=== PATIENT | male | born 1940 | race Caucasian/White ===

== ENCOUNTER → 2017-12-28 08:46 | Outpatient (CLI) | payer MEDICARE, OTHER, SELFPAY ==
[2017-11-18 13:05] VITALS: BP 132/68; BMI 29.4
[2017-12-28 10:38] LABS: Absolute Neutrophil Count 3.9 X10^3/uL (2.0-7.7); Basophil# 0.05 X10^3/uL; Basophil% 0.8 % (0-1); Eosinophil# 0.26 X10^3/uL; Eosinophils% 4.1 % (0-5); Hematocrit 38.2 % (40-54); Hemoglobin 12.5 g/dl (13.0-16.5); Lymphocyte % 22.3 % (19-41); Mean Corp Hgb Conc 32.7 g/gl (32-36); Mean Corpuscular Hgb 29.2 pg (27.0-32.0); Mean Corpuscular Volume 89.3 fL (80-94); Monocyte# 0.64 X10^3/uL; Monocyte% 10.2 % (0-10); Neutrophil # 3.91 X10^3/uL (2.7-7.7); Neutrophil % 62.4 % (47-70); Platelet Count 221 K/mm3 (150-450); RBC Distribution Width SD 45.6 fl (35.1-43.9); Red Blood Count 4.28 M/mm3 (4.6-6.2); White Blood Count 6.3 K/mm3 (4.4-11.0)
[2017-12-28 10:39] LABS: POSITIVE COUNT NO; POSITIVE DIFFERENTIAL NO; POSITIVE MORPHOLOGY NO
[2017-12-28 11:10] LABS: ALB/GLOB Ratio 1.2 RATIO (0.9-2.4); AST(SGOT) 17 U/L (15-37); Alanine Aminotransfer ALT/SGPT 20 U/L (16-61); Albumin, Serum 3.8 g/dL (3.2-5.0); Alkaline Phosphatase 62 U/L (45-117); Anion Gap 7 (5-15); BUN 21 mg/dL (7-18); BUN/Creat Ratio 22.5 RATIO (10-20); Calcium,Total 9.5 mg/dL (8.5-10.1); Chloride 106 mmol/L (98-107); Cholesterol 237 mg/dL (200); Creatinine, Serum 0.93 mg/dL (0.70-1.30); EST Glomerular Filtration Rate 83 mL/min (>60); Est Glom Filt Rate - Afr Amer 100 mL/min (>60); Globulin 3.3 g/dL (2.2-4.2); Glucose 94 mg/dL (74-106); High Density Lipoprotein 48 mg/dL; Potassium 4.1 mmol/L (3.5-5.1); Protein, Total 7.1 g/dL (6.4-8.2); Sodium Level 139 mmol/L (136-145); Thyroid Stim Hormone (TSH) 1.58 uIU/mL (0.358-3.74); Triglycerides 152 mg/dL; Very Low Density Lipoprotein 30 mg/dL (5-40)
== END ==
PROVIDERS: Family Provider Family Medicine; PCP Family Medicine; Visit Provider Family Medicine
DX: E78.5 Hyperlipidemia, unspecified (principal); I10 Essential (primary) hypertension; E03.9 Hypothyroidism, unspecified; R60.0 Localized edema; E29.1 Testicular hypofunction; Z51.81 Encounter for therapeutic drug level monitoring; Z79.899 Other long term (current) drug therapy
CPT/HCPCS: 36415; 80053; 80061; 84443; 85025

== ENCOUNTER → 2018-01-03 09:09 | Outpatient (CLI) | payer MEDICARE, OTHER, SELFPAY ==
--- NOTE | 2018-01-03 09:14 | US_ITS ---
STUDY: RENAL ULTRASOUND - COMPLETE REASON FOR EXAM: Male, 77 years old. History of right renal cyst. TECHNIQUE: Ultrasound evaluation of the kidneys was performed with real-time and static guzman-scale imaging. COMPARISON: Comparison is made with prior examination dated December 31, 2016. FINDINGS: RIGHT KIDNEY: Normal location of the right kidney, which is normal in size. The right kidney measures 14.1 cm x 5.5 cm x 5.3 cm. There is a normal cortex of the right kidney. The renal cortex measures 1.8 cm. Once again, there is a septated 9.2 cm x 9.3 cm x 7.7 cm cyst in the inferior midportion of the kidney. There are no right renal calculi. There is no right hydronephrosis. DISTAL RIGHT URETER: There is non-visualization of the distal right ureter. There is no demonstrated right ureterovesical junction calculus. There is no demonstrated right ureteral jet. LEFT KIDNEY: Normal location of the left kidney, which is normal in size. The left kidney measures 11.1 cm x 4.8 cm x 6.0 cm. There is a normal cortex of the left kidney. The renal cortex measures 1.6 cm. There is a 9 mm x 6 mm x 8 mm cyst. Stable appearance of the 5 mm calculus. There is no left hydronephrosis. DISTAL LEFT URETER: There is non-visualization of the distal left ureter. There is no demonstrated left ureterovesical junction calculus. There is a visualized left ureteral jet. BLADDER: The distended urinary bladder has a volume of 43 ml. There is a normal wall thickness of the distended urinary bladder. There is no demonstrated mass within the urinary bladder. There are no demonstrated bladder calculi. US/Kidney and Bladder IMPRESSION: Stable examination. Electronically Signed: Mario Garvin MD at 14:57 EST Tel [phone], Service support ,
--- NOTE | 2018-01-03 09:14 | US_ITS ---
PROCEDURES: ULTRASOUND AORTA REASON FOR EXAM: Male, 77 years old. History of abdominal aortic aneurysm. TECHNIQUE: Ultrasound evaluation of the aorta was performed with real-time and static obregon-scale imaging. COMPARISON: Comparison is made with prior study dated June 23, 2013. FINDINGS: There is atherosclerotic plaque formation of the abdominal aorta. Aorta measures: Proximal 3.5 cm. Middle 1.7 cm. Distal 2.0 cm. Aorta measure transversely: Proximal 3.3 cm. Middle 1.7 cm. Distal 3.8 cm. Right iliac artery measures: 0.8 cm. Right iliac artery measure transversely: 0.9 cm. Left iliac artery measures: 0.9 cm. Left iliac artery measure transversely: 1.2 cm. Saccular infrarenal abdominal aortic aneurysm with a transverse dimension of 3.8 cm in AP dimension of 3.1 cm.. US/Aorta IMPRESSION: The transverse dimension of the saccular aneurysm as increased in size as compared to prior examination. Electronically Signed: Mario Garvin MD at 10:48 EST Tel [phone], Service support ,
== END ==
PROVIDERS: Family Provider Family Medicine; PCP Family Medicine; Visit Provider Family Medicine
DX: I71.4 Abdominal aortic aneurysm, without rupture (principal); N28.1 Cyst of kidney, acquired
CPT/HCPCS: 76770; 76775

== ENCOUNTER → 2018-05-02 13:19 | Outpatient (CLI) | payer MEDICARE, OTHER, SELFPAY ==
--- NOTE | 2018-05-02 13:19 | DT_ITS ---
This patient was seen during an EMR downtime April 25, 2018 - May 02, 2018. This patient may have a combination of paper and electronic documentation or all paper documentation. All documentation is viewable within the e-chart portion of [facility] for each patient visit.
[2018-05-09 20:09] LABS: Alternaria tenuis <0.10 kU/L (Class 0); Ash, White 1.37 kU/L (Class II); Aspergillus fumigatus <0.10 kU/L (Class 0); Bermuda Grass <0.10 kU/L (Class 0); Birch <0.10 kU/L (Class 0); Black Walnut <0.10 kU/L (Class 0); Cat Hair / Dander,Stand <0.10 kU/L (Class 0); Cedar, Mountain <0.10 kU/L (Class 0); Cladosporium herbarum <0.10 kU/L (Class 0); Cockroach, American <0.10 kU/L (Class 0); Cottonwood <0.10 kU/L (Class 0); D farinae Mite <0.10 kU/L (Class 0); D pteronyssinus <0.10 kU/L (Class 0); Dog Epithelia <0.10 kU/L (Class 0); Elm, American White <0.10 kU/L (Class 0); Immunoglobulin E 266 IU/mL (0-100); Maple/Box Elder <0.10 kU/L (Class 0); Mouse Urine <0.10 kU/L (Class 0); Mulberry, White <0.10 kU/L (Class 0); Oak, White <0.10 kU/L (Class 0); Pecan <0.10 kU/L (Class 0); Penicillium Notatum <0.10 kU/L (Class 0); Pigweed, Rough <0.10 kU/L (Class 0); Ragweed, Short/Common 0.31 kU/L (Class 0/I); Russian Thistle <0.10 kU/L (Class 0); Sheep Sorrel <0.10 kU/L (Class 0); Sycamore, American <0.10 kU/L (Class 0); Timothy Grass <0.10 kU/L (Class 0)
== END ==
PROVIDERS: Family Provider Family Medicine; PCP Family Medicine; Visit Provider Family Medicine
DX: L50.0 Allergic urticaria (principal)
CPT/HCPCS: 36415; 82785; 86003

== ENCOUNTER → 2018-06-06 08:56 | Outpatient (CLI) | payer MEDICARE, OTHER, SELFPAY ==
[2018-06-06 10:26] LABS: ALB/GLOB Ratio 0.9 RATIO (0.9-2.4); AST(SGOT) 16 U/L (15-37); Alanine Aminotransfer ALT/SGPT 19 U/L (16-61); Albumin, Serum 3.7 g/dL (3.2-5.0); Alkaline Phosphatase 65 U/L (45-117); Anion Gap 9 (5-15); BUN 23 mg/dL (7-18); BUN/Creat Ratio 19.8 RATIO (10-20); Calcium,Total 9.4 mg/dL (8.5-10.1); Chloride 104 mmol/L (98-107); Cholesterol 235 mg/dL (200); Creatinine, Serum 1.16 mg/dL (0.70-1.30); EST Glomerular Filtration Rate 64 mL/min (>60); Est Glom Filt Rate - Afr Amer 78 mL/min (>60); Globulin 4.1 g/dL (2.2-4.2); Glucose 94 mg/dL (74-106); High Density Lipoprotein 50 mg/dL; Potassium 4.7 mmol/L (3.5-5.1); Protein, Total 7.8 g/dL (6.4-8.2); Sodium Level 142 mmol/L (136-145); Thyroid Stim Hormone (TSH) 1.59 uIU/mL (0.358-3.74); Triglycerides 94 mg/dL; Very Low Density Lipoprotein 19 mg/dL (5-40)
[2018-06-06 12:18] LABS: Absolute Lymphocyte Count 1.52 X10^3/ul (0.83-4.51); Basophil# 0.06 X10^3/uL; Basophil% 0.7 % (0-1); Eosinophil# 0.13 X10^3/uL; Eosinophils% 1.5 % (0-5); Hematocrit 41.7 % (40-54); Hemoglobin 13.5 g/dl (13.0-16.5); Lymphocyte # 1.52 X10^3/ul (4.0); Lymphocyte % 17.6 % (19-41); Mean Corp Hgb Conc 32.4 g/gl (32-36); Mean Corpuscular Hgb 29.5 pg (27.0-32.0); Mean Corpuscular Volume 91.2 fL (80-94); Monocyte# 0.86 X10^3/uL; Neutrophil # 6.02 X10^3/uL (2.7-7.7); Neutrophil % 69.7 % (47-70); Platelet Count 275 K/mm3 (150-450); RBC Distribution Width CV 15.1 % (11.6-14.6); RBC Distribution Width SD 50.4 fl (35.1-43.9); Red Blood Count 4.57 M/mm3 (4.6-6.2); White Blood Count 8.6 K/mm3 (4.4-11.0)
[2018-06-06 12:23] LABS: POSITIVE COUNT NO; POSITIVE DIFFERENTIAL NO; POSITIVE MORPHOLOGY NO
[2018-06-10 12:07] LABS: Testosterone, Free 4.88 ng/dL (5.00-21.00)
[2018-06-10 14:27] LABS: Testosterone, % Free 1.43 % (1.50-4.20); Testosterone, Total 341 ng/dL (264-916)
== END ==
PROVIDERS: Family Provider Family Medicine; PCP Family Medicine; Visit Provider Family Medicine
DX: E78.5 Hyperlipidemia, unspecified (principal); E03.9 Hypothyroidism, unspecified; R60.0 Localized edema; I10 Essential (primary) hypertension; E29.1 Testicular hypofunction; R53.83 Other fatigue
CPT/HCPCS: 36415; 80053; 80061; 84402; 84403; 84443; 85025

== ENCOUNTER → 2018-09-29 09:11 | Outpatient (CLI) | payer MEDICARE, OTHER, SELFPAY ==
[2018-09-29 13:27] LABS: Cholesterol 183 mg/dL (200); High Density Lipoprotein 45 mg/dL; Triglycerides 89 mg/dL; Very Low Density Lipoprotein 18 mg/dL (5-40)
== END ==
PROVIDERS: Family Provider Family Medicine; PCP Family Medicine
DX: E78.5 Hyperlipidemia, unspecified (principal)
CPT/HCPCS: 36415; 80061

== ENCOUNTER → 2018-12-26 08:12 | Outpatient (CLI) | payer MEDICARE, OTHER, SELFPAY ==
[2018-12-26 10:12] LABS: Absolute Lymphocyte Count 1.74 X10^3/ul (0.83-4.51); Absolute Neutrophil Count 4.6 X10^3/uL (2.0-7.7); Basophil# 0.08 X10^3/uL; Eosinophil# 0.22 X10^3/uL; Eosinophils% 2.9 % (0-5); Hematocrit 42.2 % (40-54); Hemoglobin 13.4 g/dl (13.0-16.5); Lymphocyte # 1.74 X10^3/ul (4.0); Lymphocyte % 22.7 % (19-41); Mean Corp Hgb Conc 31.8 g/gl (32-36); Mean Corpuscular Hgb 26.1 pg (27.0-32.0); Mean Corpuscular Volume 82.3 fL (80-94); Mean Platelet Vol. 9.7 fl (6.2-12.0); Monocyte# 1.03 X10^3/uL; Monocyte% 13.4 % (0-10); Neutrophil # 4.57 X10^3/uL (2.7-7.7); Neutrophil % 59.7 % (47-70); Platelet Count 288 K/mm3 (150-450); RBC Distribution Width CV 17.2 % (11.6-14.6); RBC Distribution Width SD 51.1 fl (35.1-43.9); Red Blood Count 5.13 M/mm3 (4.6-6.2); White Blood Count 7.7 K/mm3 (4.4-11.0)
[2018-12-26 10:18] LABS: POSITIVE COUNT NO; POSITIVE DIFFERENTIAL NO; POSITIVE MORPHOLOGY NO
[2018-12-26 10:30] LABS: AST(SGOT) 15 U/L (15-37); Alanine Aminotransfer ALT/SGPT 20 U/L (16-61); Albumin, Serum 3.7 g/dL (3.2-5.0); Alkaline Phosphatase 56 U/L (45-117); Anion Gap 7 (5-15); BUN 21 mg/dL (7-18); BUN/Creat Ratio 20.2 RATIO (10-20); Calcium,Total 8.8 mg/dL (8.5-10.1); Chloride 108 mmol/L (98-107); Cholesterol 149 mg/dL (200); Creatinine, Serum 1.04 mg/dL (0.70-1.30); EST Glomerular Filtration Rate 73 mL/min (>60); Est Glom Filt Rate - Afr Amer 88 mL/min (>60); Globulin 3.7 g/dL (2.2-4.2); Glucose 89 mg/dL (74-106); High Density Lipoprotein 48 mg/dL; PSA,Total - Annual Screen 2.42 ng/mL (0.00-4.00); Potassium 4.3 mmol/L (3.5-5.1); Protein, Total 7.4 g/dL (6.4-8.2); Sodium Level 141 mmol/L (136-145); Thyroid Stim Hormone (TSH) 1.35 uIU/mL (0.358-3.74); Triglycerides 77 mg/dL; Very Low Density Lipoprotein 15 mg/dL (5-40)
[2018-12-29 12:18] LABS: Testosterone, Free 38.44 ng/dL (5.00-21.00)
[2018-12-30 18:13] LABS: Testosterone, % Free 3.23 % (1.50-4.20); Testosterone, Total 1190 ng/dL (264-916)
== END ==
PROVIDERS: Family Provider Family Medicine; PCP Family Medicine; Referring Provider Family Medicine; Visit Provider Family Medicine
DX: I25.10 Atherosclerotic heart disease of native coronary artery without angina pectoris (principal); E78.5 Hyperlipidemia, unspecified; E29.1 Testicular hypofunction; I10 Essential (primary) hypertension; E03.9 Hypothyroidism, unspecified; Z51.81 Encounter for therapeutic drug level monitoring; Z12.5 Encounter for screening for malignant neoplasm of prostate
CPT/HCPCS: 36415; 80053; 80061; 84153; 84402; 84403; 84443; 85025; G0103

== ENCOUNTER → 2019-01-17 10:34 | Outpatient (CLI) | payer MEDICARE, OTHER, SELFPAY ==
[2019-01-17 09:28] VITALS: BMI 27.6
--- NOTE | 2019-01-17 10:44 | US_ITS ---
STUDY: RENAL ULTRASOUND - COMPLETE REASON FOR EXAM: Male, 78 years old. Right renal cyst TECHNIQUE: Ultrasound evaluation of the kidneys was performed with real-time and static guzman-scale imaging. COMPARISON: Previous study of January 03, 2018 FINDINGS: RIGHT KIDNEY: Normal location of the right kidney, which is normal in size. The right kidney measures 10.7 x 6.0 x 5.3 cm. There is a normal cortex of the right kidney. The renal cortex measures 1.7 cm. There is a lower pole cyst with internal septations measuring 9.4 x 9.6 x 8.4 cm. There are no right renal calculi. There is no right hydronephrosis. DISTAL RIGHT URETER: There is non-visualization of the distal right ureter. There is no demonstrated right ureterovesical junction calculus. There is no demonstrated right ureteral jet. LEFT KIDNEY: Normal location of the left kidney, which is normal in size. The left kidney is lobular in contour. The left kidney measures 10.4 x 4.5 x 4.6 cm. There is a normal cortex of the left kidney. The renal cortex measures 1.1 cm. There is a peripelvic cyst measuring 0.9 cm. There are no left renal calculi. There is no left hydronephrosis. DISTAL LEFT URETER: There is non-visualization of the distal left ureter. There is no demonstrated left ureterovesical junction calculus. There is no demonstrated left ureteral jet. BLADDER: The distended urinary bladder has a volume of 170 ml. There is a normal wall thickness of the distended urinary bladder. There is no demonstrated mass within the urinary bladder. There are no demonstrated bladder calculi. US/Kidney and Bladder IMPRESSION: Lower pole cyst of the right kidney with internal septations measuring 9.4 x 9.6 x 8.4 cm. This cyst has remained stable in size in the interval. There is a left renal parapelvic cyst measuring 0.9 cm, stable in the interval. Electronically Signed: Shantanu Saleh MD at 23:44 EST , Service support ,
== END ==
PROVIDERS: Family Provider Family Medicine; PCP Family Medicine; Referring Provider Family Medicine; Visit Provider Family Medicine
DX: N28.1 Cyst of kidney, acquired (principal)
CPT/HCPCS: 76770

== ENCOUNTER → 2019-01-24 07:45 | Outpatient (CLI) | payer MEDICARE, OTHER, SELFPAY ==
[2019-01-17 09:28] VITALS: BMI 27.6
[2019-01-23 09:26] VITALS: BMI 27.6
--- NOTE | 2019-01-24 07:47 | US_ITS ---
PROCEDURES: ULTRASOUND AORTA REASON FOR EXAM: Male, 78 years old. Abdominal aortic aneurysm. TECHNIQUE: Ultrasound evaluation of the aorta was performed with real-time and static obregon-scale imaging. COMPARISON: January 03, 2018. FINDINGS: There is no elongation or tortuosity of the abdominal aorta. Aorta measures: Proximal 1.7 cm. Middle 2.6 cm. Distal 4 cm. Aorta measure transversely: Proximal 2.0 cm. Middle 2.9 cm. Distal 4.1 cm. There is complete filling on color Doppler imaging with normal waveform. Right iliac artery measures: 1.1 cm. Right iliac artery measure transversely: 0.0 cm. Left iliac artery measures: 1.4 cm. Left iliac artery measure transversely: 0.9 cm. There is a fusiform infrarenal abdominal aortic aneurysm with a maximum diameter of 4 x 4.1 cm. This tonsils approximately 1.6 cm above the bifurcation.. US/Aorta IMPRESSION: Fusiform infrarenal abdominal aortic aneurysm. This appears mildly enlarged when compared to the previous ultrasound. Electronically Signed: Bib Patel DO at 23:19 EST Tel [phone], Service support ,
== END ==
PROVIDERS: Family Provider Family Medicine; PCP Family Medicine; Referring Provider Family Medicine; Visit Provider Family Medicine
DX: I71.4 Abdominal aortic aneurysm, without rupture (principal); N28.1 Cyst of kidney, acquired
CPT/HCPCS: 76775

== ENCOUNTER → 2019-05-23 13:58 | Outpatient (CLI) | payer MEDICARE, OTHER, SELFPAY ==
[2019-02-14 11:42] VITALS: BMI 27.6
--- NOTE | 2019-05-23 14:30 | RAD_ITS ---
STUDY: X-RAY - RIGHT KNEE REASON FOR EXAM: Pain. TECHNIQUE: 4 view(s) of the knee. COMPARISON: None. FINDINGS: Normal visualized distal femur. Normal visualized proximal tibia and fibula. Normal proximal tibiofibular articulation. There is moderate joint space narrowing of the medial femorotibial compartment. Normal lateral femorotibial compartment. Normal patellofemoral articulation. There is vascular calcification. There are surgical clips medial to the proximal tibial diaphysis. RAD/Knee 4 or More Views IMPRESSION: Arthrosis of the medial femorotibial compartment. Electronically Signed: Zachariah Jaimes MD at 15:32 EDT Tel , Service support ,
== END ==
PROVIDERS: Family Provider Family Medicine; PCP Family Medicine; Referring Provider Orthopaedic Surgery; Visit Provider Orthopaedic Surgery
DX: Z98.890 Other specified postprocedural states (principal)
CPT/HCPCS: 73564

== ENCOUNTER → 2019-06-15 10:09 | Outpatient (CLI) | payer MEDICARE, OTHER, SELFPAY ==
[2019-05-23 14:26] VITALS: BMI 27.6
--- NOTE | 2019-06-15 10:19 | MRI_ITS ---
STUDY: MRI CERVICAL SPINE WITHOUT CONTRAST REASON FOR EXAM: Male, 79 years old. Radiculopathy. Cervical disc degenerative changes. Right shoulder pain. TECHNIQUE: Standardized fat and water weighted pulse sequences were obtained in the sagittal and axial planes. COMPARISON: X-ray dated August 13, 2014. FINDINGS: Normal foramen magnum and brainstem-cervical cord junction. Normal craniovertebral junction. Normal anterior atlantoaxial articulation. Normal odontoid process. Mild cervical straightening. No acute fracture, dislocation or osseous destruction. No active bone marrow edema. Tiny perineural cysts (example axial image 29 series 7). C2-3: Normal endplates. Disc desiccation. Normal central canal and intervertebral neural foramina. C3-4: Mild endplate spondylosis. Shallow bilobed disc bulge with mild central canal narrowing. Mild bilateral neural femoral narrowing. Mild facet joint arthrosis. C4-5: Mild/moderate endplate spondylosis. Shallow disc bulge with mild central canal narrowing. Moderate/severe bilateral neural foramina narrowing. Mild facet joint arthrosis. C5-6: Mild/moderate endplate spondylosis. Shallow disc bulge with minimal central canal narrowing. Severe bilateral neural foraminal narrowing. Mild facet joint arthrosis. C6-7: Mild endplate spondylosis. Disc bulge, asymmetric to the right, with mild central canal narrowing. Severe bilateral neural femoral narrowing, right greater than left. Mild facet joint arthrosis. C7-T1: Minimal endplate spondylosis. Disc desiccation. Normal central canal and intervertebral neural foramina. Mild facet joint arthrosis. Partially visualized shallow thoracic disc bulges without significant central canal narrowing. T1 to mild neural foraminal narrowing. No abnormal cervical cord signal. Relatively symmetric vascular flow voids. Mild paraspinal muscle atrophy. No focal soft tissue lesions. MRI/Spine Cervical (Routine) IMPRESSION: No abnormal cervical cord signal Diffuse multilevel intervertebral disc disease with mild central canal narrowing Multilevel severe neural femoral narrowing most severe at C4-5 through C6-7 Mild cervical straightening with osseous degenerative changes Electronically Signed: Segun Carvalho DO at 12:07 EDT Tel , Service support ,
== END ==
PROVIDERS: Family Provider Family Medicine; PCP Family Medicine; Referring Provider Anesthesiology Pain Medicine; Visit Provider Anesthesiology Pain Medicine
DX: M50.30 Other cervical disc degeneration, unspecified cervical region (principal); M54.12 Radiculopathy, cervical region
CPT/HCPCS: 72141

== ENCOUNTER → 2019-07-04 08:40 | Outpatient (CLI) | payer MEDICARE, OTHER, SELFPAY ==
[2019-05-23 14:26] VITALS: BMI 27.6
--- NOTE | 2019-07-04 08:53 | US_ITS ---
PROCEDURES: ULTRASOUND AORTA REASON FOR EXAM: Male, 79 years old. Abdominal aortic aneurysm TECHNIQUE: Ultrasound evaluation of the aorta was performed with real-time and static obregon-scale imaging. COMPARISON: January 24, 2019 FINDINGS: There is no elongation or tortuosity of the abdominal aorta. Aorta measures: Proximal 2.2 cm. Middle 1.7 cm. Distal cm. Aorta measure transversely: Proximal 2.3 cm. Middle 2.1 cm. Distal 3.1 cm. 3.3 Right iliac artery measures: 0.8 cm. Right iliac artery measure transversely: 0.9, cm. Left iliac artery measures: 0.8 cm. Left iliac artery measure transversely: 1.2 cm. Distal aortic aneurysm extending to the bifurcation measuring 4.1 x 5.3 cm which has increased slightly in size since prior study US/Aorta IMPRESSION: Atherosclerotic disease. Distal abdominal aortic aneurysm which is increased slightly in size since prior exam Electronically Signed: Minh Funez MD at 17:16 EDT , Service support ,
[2019-07-04 09:32] LABS: Absolute Lymphocyte Count 1.92 X10^3/uL (0.83-4.51); Absolute Neutrophil Count 5.6 X10^3/uL (2.0-7.7); Basophil# 0.06 X10^3/uL; Basophil% 0.7 % (0-1); Eosinophils% 2.4 % (0-5); Hematocrit 41.7 % (40-54); Hemoglobin 13.9 g/dL (13.0-16.5); Lymphocyte # 1.92 X10^3/ul (4.0); Lymphocyte % 22.7 % (19-41); Mean Corp Hgb Conc 33.3 g/dL (32-36); Mean Corpuscular Hgb 31.6 pg (27.0-32.0); Mean Corpuscular Volume 94.8 fL (80-94); Mean Platelet Vol. 8.8 fl (6.2-12.0); Monocyte% 8.3 % (0-10); NRBC Flagged by Analyzer 0 % (0-5); Neutrophil # 5.55 X10^3/uL (2.7-7.7); Neutrophil % 65.4 % (47-70); Platelet Count 258 K/mm3 (150-450); RBC Distribution Width CV 13.5 % (11.6-14.6); RBC Distribution Width SD 46.9 fl (35.1-43.9); White Blood Count 8.5 K/mm3 (4.4-11.0)
[2019-07-04 10:07] LABS: AST(SGOT) 13 U/L (15-37); Alanine Aminotransfer ALT/SGPT 22 U/L (16-61); Albumin, Serum 3.7 g/dL (3.2-5.0); Alkaline Phosphatase 71 U/L (45-117); Anion Gap 8 (5-15); BUN 22 mg/dL (7-18); BUN/Creat Ratio 20.6 RATIO (10-20); Calcium,Total 9.3 mg/dL (8.5-10.1); Chloride 104 mmol/L (98-107); Cholesterol 227 mg/dL (200); Creatinine, Serum 1.07 mg/dL (0.70-1.30); EST Glomerular Filtration Rate 70 mL/min (>60); Est Glom Filt Rate - Afr Amer 85 mL/min (>60); Globulin 3.8 g/dL (2.2-4.2); Glucose 93 mg/dL (74-106); High Density Lipoprotein 63 mg/dL; Potassium 4.4 mmol/L (3.5-5.1); Protein, Total 7.5 g/dL (6.4-8.2); Sodium Level 140 mmol/L (136-145); T4 Free Direct 1.19 ng/dL (0.76-1.46); Thyroid Stim Hormone (TSH) 1.62 uIU/mL (0.358-3.74); Triglycerides 108 mg/dL; Very Low Density Lipoprotein 22 mg/dL (5-40)
== END ==
PROVIDERS: Family Provider Family Medicine; PCP Family Medicine; Referring Provider Family Medicine; Visit Provider Family Medicine
DX: I71.4 Abdominal aortic aneurysm, without rupture (principal); I25.10 Atherosclerotic heart disease of native coronary artery without angina pectoris; I10 Essential (primary) hypertension; E03.9 Hypothyroidism, unspecified; E78.5 Hyperlipidemia, unspecified; Z51.81 Encounter for therapeutic drug level monitoring
CPT/HCPCS: 36415; 76775; 80053; 80061; 84439; 84443; 85025

== ENCOUNTER 2019-07-25 09:00 | Outpatient (RCR) | payer MEDICARE, OTHER, SELFPAY ==
[2019-05-23 14:26] VITALS: BMI 27.6
--- NOTE | 2019-07-03 18:00 | HP.PTEVAL ---
Patient's Visit Information DAYTON TINAJERO is a 79 year old M referred to Physical Therapy by Minh Acevedo MD with a diagnosis of M50.30, M47.812, M48.02. Date of Evaluation: 07/03/19 Physical Therapist: Cheli Medina PT, Cert MDT - Visit Plan Frequency: 2-3x /Week Duration: 4-6 Weeks Plan: POSTURE CORRECTION/STRENGTHENING, INSTRUCTION IN APPROPRIATE BODY MECHANICS AND ACTIVITY MODIFICATIONS. ELISE UE ROM, STRETCHING AND STRENGTHENING. HEP INSTRUCTION. - Subjective Findings: Diagnosis: NECK ARTHRITIS. Work/Leisure: RETIRED. Present symptoms: ELISE NECK PAIN RIGHT > LEFT. RIGHT SHOULDER PAIN. SOMETIMES AT NIGHT BOTH ARMS, HANDS AND FINGERS GO NUMB/TINGLY. Present since: YEARS. A LONG TIME. Pain Scale: Worst - 9/10 Least - 0/10. VERY OCCASSIONALLY 0/10 WITH ADVIL. Currently: 3/10. Commenced as a result of: NO APPARENT REASON. Symptoms at onset: NECK. Worse: SITTING, COLD, RAKING, MOWING - RIDING - BOUNCING. Better: ADVIL, GET WARM, HOT SHOWER. Disturbed sleep: YES. Previous history/Previous treatment: NO NECK SURGERY. H/O SPENCER'S IN THE PAST WITH A LITTLE BIT OF BENEFIT FOR LOW BACK BUT NOT NECK. MASSAGE. A LITTLE BIT OF CHIRO TREATMENTS A LONG TIME AGO. SOME MASSAGE THERAPY BUT MAINLY FOR LOW BACK. Dizziness: NO. Tinnitis: OCCASSIONALLY - CHRONIC. Nausea: NO. Shortness of Breath: OCCASSIONALLY. Difficulty Swollowing: NO. Gait: NORMAL - NO RECENT CHANGES. NO AD'S. Accidents: NO. Unexplained weight loss: NO. Imaging: NECK MRI - SEE [facility] EMR: MRI/Spine Cervical (Routine). IMPRESSION: No abnormal cervical cord signal. Diffuse multilevel intervertebral disc disease with mild central canal. narrowing. Multilevel severe neural femoral narrowing most severe at C4-5 through C6-7. Mild cervical straightening with osseous degenerative changes. PMH/Recent major surgery: OPEN HEART SURGERY 1997, AFIB ABRASION ABOUT 6 YEARS AGO. SEE BELOW FOR MORE. OTHER: ABOUT 3 WEEKS AGO ADMIT TO HOSPITAL FOR CHEST PAIN THAT PATIENT REPORTS WAS MISSED DIAGNOSED AFIB. CHEST PAIN WENT AWAY ON ITS OWN. STATES HIS CHEST PAIN IS STRUCTURAL WHICH WAS DIAGNOSED A FEW YEARS AGO AND NOT HIS HEART. NIRMAL'T PENDING FOR NECK SPENCER IN ABOUT 8 WEEKS BUT IS HOPING TO CANCEL IT IF PHYSICAL THERAPY HELPS. - Objective Sitting Posture/Standing Posture: POOR. FORWARD HEAD AND ROUNDED SHOULDERS. Active Correction of posture: NE. Other Observations: INDEP GAIT AND TRANSFERS. 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 ELISE SHOULDER STRENTH GROSSLY 4/5. OTHERWISE ELISE UE STRENGTH 5/5. Sensory deficit: ELISE UE LIGHT TOUCH SENSATION IS INTACT AND SYMMETRICAL. ROM deficit: ELISE UE'S WFL. Reflexes: NT. Dural Signs: NEGATIVE ELISE UE'S. Cervical Mvmt Loss: Flex: NIL. Pro: NIL. Ext: DAIANA. Ret: DAIANA. RSB: MOD. LSB: MOD. R Rot: MOD. L Rot: MOD. PATIENT HAS BETTER THAN EXPECTED ELISE NECK ROTATION AND SB'ING FOR AGE, MRI FINDINGS AND C/O PAIN. PATIENT HAS C/O INCREASED NECK PAIN WITH CERVICAL EXT, RETRACTION AND ELISE SB. Postural strength: POOR. Palpation: CERVICAL TENDERNESS AND INCREASED MUSCLE TONE ELISE. NO ACUTE SHOULDER TENDERNESS ELISE. - Goals Goal 1:: DECREASE C/O ELISE NECK AND UE SX'S Goal Time Frame: 4-6 Weeks Goal 2:: IMPROVE ADL, WORK, SLEEP, DRIVING AND RECREATIONAL FUNCTION Goal Time Frame: 4-6 Weeks Goal 3:: INSTRUCT IN PROPHYLAXIS Goal Time Frame: 4-6 Weeks - Rehabilitation Potential Rehabilitation Potential: Fair - Anticipated Interventions Patient/Client Instruction: Educate patient on: Condition, Plan of Care, Risk Factors, Benefits of Fitness Program For the Purpose of:: To improve self management Therapeutic Exercise to Include: Strength training, Postural training, Flexibilty training, Active ROM, Scapular Strength/Stabilization For the Purpose of:: To decrease pain, To increase ROM, To improve muscle performance and motor function, To increase tolerance to activity/condition/position, To improve ability of physical actions for home/community/work/leisure Manual Therapy Techniques to Include: Soft tissue mobilization For the Purpose of:: To decrease pain, To increase ROM, To improve nutrient delivery to tissue Thermo therapy (hot pack): Yes Ultrasound (thermal/non thermal): Yes For the Purpose of:: To decrease pain, To increase ROM, To improve nutrient delivery to tissue Thank you for the opportunity to evaluate your patient. For Medicare and Medicare HMO plans, please review the plan of care and approve it. It will need to be FAXED BACK to us at [phone] for Medicare purposes. For Medicare only, by signing this I certify the plan of care. Please let me know if there are questions or concerns regarding this plan of care. Physician Signature: Date:
--- NOTE | 2019-07-25 09:39 | HP.PTDCSUM_ITS ---
HP - PT D/C Summary It has been my pleasure to treat DAYTON TINAJERO under orders from Minh Acevedo MD, for the diagnosis of M50.30, M47.812, M48.02 for a total of 10 visit(s). Discharge Date: Please see the following information for a summary of their discharge status. - Subjective Subjective: PATIENT REPORTS HE IS DOING A LOT BETTER SINCE HAVING THERAPY. STATES HIS ARMS AND HANDS ARE NO LONGER GOING TO SLEEP AT NIGHT. MOWING STILL PROVOKES SYMPTOMS BUT NOT BAD. STATES HE GOT UP PAINFREE YESTERDAY. Pain Scale: Worst - 3/10 Least - 0/10. PATIENT REPORTS HIS HEP IS GOING WELL AND WHEN HE DOES THEM AFTER MOWING THEY HELP. PATIENT REPORTS HE HAS AN NIRMAL'T FOR A NECK INJECTION WITH DR. DE LA CRUZ IN A FEW WEEKS BUT HER PLANS TO CANCEL. PATIENT REPORTS HE DOES THINK HE MIGHT HAVE STRAINED A MUSCLE A LITTLE BIT IN HIS NECK YESTERDAY WHEN HE WAS MOWING AND MAYBE WENT AROUND A TREE TOO QUICK. STATES HE AND HIS ARE HOPING WE CAN US THAT MUSCLE TODAY. - Pain NECK Pain Intensity (Out of 10): 2 LOW BACK Pain Intensity (Out of 10): 0 - Overall Improvement % Improvement: 90 - Objective Objective/Function: PATIENT HAS MADE GREAT PROGRESS TOWARD ALL GOALS. HE IS APPROPRIATE FOR DISCHARGE TO [facility] AND FOLLOW UP WITH DR. DE LA CRUZ NEEDED AT THIS TIME. 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 ELISE SHOULDER STRENTH GROSSLY 5/5 EXCEPT RIGHT SHLD ABD 4+/5. OTHERWISE ELISE UE STRENGTH 5/5. Sensory deficit: ELISE UE LIGHT TOUCH SENSATION IS INTACT AND SYMMETRICAL. ROM deficit: ELISE UE'S WFL. Reflexes: NT. Dural Signs: NEGATIVE ELISE UE'S. Cervical Mvmt Loss: Flex: NIL. Pro: NIL. Ext: DAIANA. Ret: DAIANA. RSB: MOD. LSB: MOD. R Rot: MOD. L Rot: MOD. PATIENT DENIES INCREASED PAIN WITH CERVICAL ROM TESTING ALL PLANES AND ALSO DENIES INCREASED PAIN WITH ALL UE TESTING. - Goals Goal 1:: DECREASE C/O ELISE NECK AND UE SX'S Goal Progress: Goal Met Goal 2:: IMPROVE ADL, WORK, SLEEP, DRIVING AND RECREATIONAL FUNCTION Goal Progress: Goal Met Goal 3:: INSTRUCT IN PROPHYLAXIS Goal Progress: Goal Met - Plan Plan: D/C. PATIENT AGREEABLE - D/C Information If there are questions or concerns regarding this patient's physical therapy, please feel free to call me at [phone]. Thank you for the referral of this patient. Sincerely, Cheli Medina, PT, Cert MDT
== END 2019-07-25 19:00 | disposition home or self-care (01) ==
LOC: PT 09:00
PROVIDERS: Family Provider Family Medicine; PCP Family Medicine; Referring Provider Anesthesiology Pain Medicine; Visit Provider Anesthesiology Pain Medicine
DX: M50.30 Other cervical disc degeneration, unspecified cervical region (principal); M47.812 Spondylosis without myelopathy or radiculopathy, cervical region; M48.02 Spinal stenosis, cervical region
CPT/HCPCS: 97035; 97110; 97162; 97530

== ENCOUNTER 2019-12-29 15:31 | Inpatient (IN) | payer MEDICARE, OTHER, SELFPAY ==
[2019-05-23 14:26] VITALS: BMI 27.6
[2019-12-29] VITALS (17 sets, daily range): BP systolic 105–162; BP diastolic 60–127; PULSE 92–143; RESP 15–24; TEMP 36.3–37.3; O2SAT 91–98; BMI 26.9; BMI 27.7
--- NOTE | 2019-12-29 15:47 | EKG12_ITS ---
Test Reason : CP Blood Pressure : / mmHG Vent. Rate : 128 BPM Atrial Rate : 108 BPM P-R Int : 000 ms QRS Dur : 104 ms QT Int : 288 ms P-R-T Axes : 000 -06 159 degrees QTc Int : 420 ms Atrial fibrillation with rapid ventricular response ST elevation consider inferior injury or acute infarct ACUTE [place] / STEMI Consider right ventricular involvement in acute inferior infarct Abnormal ECG Confirmed by SHANNAN GLASGOW, JACQUELINE ([id number]), news editor TIARA ANDRES ([id number]) on 01/01/2020 11:07:16 AM Referred By: Anuj Goodwin Confirmed By:BILLIE GOODWIN MD
--- NOTE | 2019-12-29 15:58 | ED.DCSUM_ITS ---
- ER Visit Summary Date of Service: 12/29/19 Chief Complaint: Chest pain History of Present Illness: The patient is a 79 M who presents with chest pain that began approximately 30 to 45 minutes prior to arrival. Patient states the pain is a pressure over his upper chest. Patient states that he was doing some exertion when the pain began. Patient states he was lifting and moving furniture. Patient admits to some shortness of breath and reflux symptoms. Patient denies any nausea or vomiting. Patient denies any diaphoresis. Patient has had a history of coronary artery disease with a bypass graft. Patient sees a career development counselor at [facility] in [place]. Physical Examination: Vital signs are stable except for tachycardia of 143. Patient is afebrile. Patient is in no acute distress. Patient is resting comfortably on the bed. Oral mucosa is pink and moist. Neck is supple. Trachea is midline. There is no JVD. Heart was irregularly irregular and tachycardic. Lungs are clear and equal bilaterally. Abdomen is soft. Bowel sounds are normal. There is no tenderness. Cranial nerves II through XII are intact. There are no focal motor or sensory deficits noted. Test Results: EKG showed atrial fibrillation with a rate of 128. There is ST elevation in leads III and aVF. There is tall R wave in V2 with ST depression in leads V2, V3, V4, V5, and V6. This is all new compared to previous EKG from 11/18/2017. Emergency Department Course and Treatment: STEMI alert was called. Case was discussed with the career development counselor Dr. Goodwin. He was in to evaluate the patient and agreed with taking the patient to the Enlisted Advisor. Patient was given a dose of Cardizem prior to going to the Enlisted Advisor. Patient was also given heparin, aspirin, and Brilinta. Case was discussed with the hospitalist. We wi ll admit the patient to his service. Patient understood and was agreeable with the plan. All questions were answered. Disposition: Admit to hospital Impression: 1. Acute STEMI 2. Atrial fibrillation with rapid ventricular response. This note was generated with LOC&ALLation software. It may contain incorrect words, spelling, and punctuation that were not noted in review of the chart prior to signing ED Disposition - Plan for ED Patient: Diagnosis: Acute ST elevation myocardial infarction (STEMI), Atrial fibrillation with rapid ventricular response Referrals: Juancho Coleman DO [Primary Care Provider] -
[2019-12-29] MEDS: Aspirin 81 MG TAB.CHEW 324 MG PO (16:00)
[2019-12-29] MEDS: dilTIAZem 25 MG/5 ML Vial IV BOLUS (16:01)
[2019-12-29] MEDS: Heparin Injection (Vial) 5,000 UNIT/ML VIAL 4000 UNIT IV (16:01)
[2019-12-29] MEDS: TICAGRELOR 90 MG TABLET 180 MG PO (16:01)
[2019-12-29 16:21] LABS: Absolute Lymphocyte Count 3.14 X10^3/uL (0.83-4.51); Absolute Neutrophil Count 5.6 X10^3/uL (2.0-7.7); Basophil# 0.08 X10^3/uL; Basophil% 0.8 % (0-1); Hematocrit 42.9 % (40-54); Lymphocyte # 3.14 X10^3/ul (4.0); Lymphocyte % 31.1 % (19-41); Mean Corp Hgb Conc 32.6 g/dL (32-36); Mean Corpuscular Hgb 29.9 pg (27.0-32.0); Mean Corpuscular Volume 91.7 fL (80-94); Mean Platelet Vol. 9.2 fl (6.2-12.0); Monocyte# 1.08 X10^3/uL; Monocyte% 10.7 % (0-10); NRBC Flagged by Analyzer 0 % (0-5); Neutrophil # 5.56 X10^3/uL (2.7-7.7); Platelet Count 229 K/mm3 (150-450); RBC Distribution Width CV 13.5 % (11.6-14.6); RBC Distribution Width SD 45.4 fl (35.1-43.9); Red Blood Count 4.68 M/mm3 (4.6-6.2); White Blood Count 10.1 K/mm3 (4.4-11.0)
[2019-12-29 16:39] LABS: International Normalized Ratio 1.1; Prothrombin Time (Protime)PT. 13.9 SECONDS (11.7-14.9)
[2019-12-29 16:51] LABS: Partial Thromboplast Time 151.2 Seconds (24.1-36.2)
[2019-12-29 16:57] LABS: Anion Gap 4 (5-15); BUN 25 mg/dL (7-18); BUN/Creat Ratio 19.7 RATIO (10-20); Chloride 109 mmol/L (98-107); Creatinine, Serum 1.27 mg/dL (0.70-1.30); EST Glomerular Filtration Rate 58 mL/min (>60); Est Glom Filt Rate - Afr Amer 70 mL/min (>60); Estimated Creatinine Clearance 42.65 ml/min; Glucose 111 mg/dL (74-106); Potassium 4.3 mmol/L (3.5-5.1); Sodium Level 140 mmol/L (136-145)
--- NOTE | 2019-12-29 18:16 | PCM.CONS.C ---
Reason for Consult Date of Consultation: 12/29/19 History of Present Illness: The patient is a 79 year old M with history of coronary artery disease status post CABG in 1997 (CAMERON to LAD, SVG to ramus, SVG to PDA), atrial fibrillation status post multiple cardioversions and also ablation coming to the ER because of chest pain that started 30 to 45 minutes prior to presentation. In the ER patient was found to have A. fib with rapid ventricular response and also diffuse ST depressions and ST elevations in aVR and lead III. Patient was having ongoing chest pain when he was seen in the ER. Review of systems: All systems reviewed. All else is negative except that in the HPI. [] Past Medical History Allergies/Adverse Reactions: Allergies acetaminophen Allergy (Verified 12/29/19 15:34) liver affects amiodarone Allergy (Verified 12/29/19 15:34) cough hydrochlorothiazide Allergy (Verified 12/29/19 15:34) Unknown rosuvastatin calcium [From Crestor] Allergy (Verified 12/29/19 15:34) Unknown Lxgvzof-Bav-Oqs Reductase Inhibitor Allergy (Verified 12/29/19 15:34) Unknown Home Medications: Ambulatory Orders Medication Instructions Recorded Omeprazole [Prilosec] 20 mg PO DAILY 08/21/13 Aspirin [Aspirin, Baby] 81 mg PO DAILY@0800 10/03/15 Levothyroxine [Synthroid] 75 mcg PO DAILY 10/03/15 Multivitamins,Therapeutic 1 tab PO DAILY 10/03/15 [Multivitamin] Nitroglycerin (INPATIENT USE) 0.4 mg SUBLINGUAL Q5M PRN 10/03/15 [Nitrostat] losartan 50 mg tablet 50 mg PO BID #180 tab 11/08/17 calcium carbonate-vitamin D3 600 1 tab PO BID tab 11/16/17 mg (1,500 mg)-800 unit tablet diltiazem HCl 240 mg 240 mg PO DAILY cap 11/16/17 capsule,extended release 24 hr fluticasone propionate 50 50 mcg INTRANASAL BID PRN 11/16/17 mcg/actuation nasal spray,suspension Acetaminophen [Mapap] 500 mg PO Q6H PRN PRN 12/29/19 Co Q10 200 [Co Q-10] 100 mg PO BID 12/29/19 Rosuvastatin Calcium 5 mg PO DAILY 12/29/19 Past Medical History (Chronic Problems): Chronic Problems (Last Reviewed 05/23/19 @ 14:22 by Yuko Encarnacion) DDD (degenerative disc disease), lumbar (Chronic) Chronic tachycardia (Chronic) Iatrogenic hypothyroidism (Chronic) HLD (hyperlipidemia) (Chronic) HTN (hypertension) (Chronic) Carotid bruit (Chronic) Sleep apnea (Chronic) S/P radiofrequency ablation operation for arrhythmia (Chronic) Myalgia (Chronic) Hypothyroidism (Chronic) Iron deficiency anemia (Chronic) Persistent atrial fibrillation (Chronic) Nonrheumatic mitral (valve) prolapse (Chronic) Atherosclerotic heart disease of [place] coronary artery without angina pectoris (Chronic) Abdominal aortic aneurysm, without rupture (Chronic) Atherosclerosis of coronary artery bypass graft without angina pectoris (Chronic) Presence of aortocoronary bypass graft (Chronic) GERD (gastroesophageal reflux disease) (Chronic) Cardiac arrhythmia (Chronic) Hypothyroidism (Chronic) Hypertension (Chronic) Amiodarone pulmonary toxicity (Chronic) Coronary arteriosclerosis (Chronic) Chest pain (Chronic) Surgical History: cataract, coronary bypass surgery, tonsillectomy, - - Ablation for atrial fibrillation, TURP, arthroscopy left knee Psychiatric History: No pertinent psych hx - *Family History Maternal Family History: Family History (Last Reviewed 05/23/19 @ 14:22 by Yuko Encarnacion) Father Hypertension HLD (hyperlipidemia) Cancer Mother Hypertension Myocardial infarction, Onset Age: 70 Asthma Heart disease Brother Kidney disease Cancer Sister HLD (hyperlipidemia) Heart disease Hypertension Bleeding disorder Son HLD (hyperlipidemia) History Items: Heart Disease, Hypertension Paternal Family History: Family History (Last Reviewed 05/23/19 @ 14:22 by Yuko Encarnacion) Father Hypertension HLD (hyperlipidemia) Cancer Mother Hypertension Myocardial infarction, Onset Age: 70 Asthma Heart disease Brother Kidney disease Cancer Sister HLD (hyperlipidemia) Heart disease Hypertension Bleeding disorder Son HLD (hyperlipidemia) History Items: Hypertension Sibling Family History: Family History (Last Reviewed 05/23/19 @ 14:22 by Yuko Encarnacion) Father Hypertension HLD (hyperlipidemia) Cancer Mother Hypertension Myocardial infarction, Onset Age: 70 Asthma Heart disease Brother Kidney disease Cancer Sister HLD (hyperlipidemia) Heart disease Hypertension Bleeding disorder Son HLD (hyperlipidemia) History Items: Cancer, Hypertension Smoking Status: Never smoker Objective: Vital Signs Temp Pulse Resp BP Pulse Ox 99.2 F H 113 H 16 153/103 H 98 12/29/19 15:32 12/29/19 16:09 12/29/19 16:09 12/29/19 15:49 12/29/19 16:09 Oxygen Flow Rate (L/min) 2 Oxygen Delivery Method Nasal Cannula Weight: 172 lb Body Mass Index (BMI) 26.9 General: Awake, Alert, Oriented x 3 HEENT: Atraumatic Oral: Moist Mucosa Neck: Supple Lungs: Clear to auscultation Cardiovascular: Irregular Rhythm Abdomen: Soft Extremities: No edema Skin: No Rashes Psych/Mental Status: Appropriate 12/29/19 16:05: WBC 10.1, RBC 4.68, Hgb 14.0, Hct 42.9, MCV 91.7, MCH 29.9, MCHC 32.6, Plt Count 229, MPV 9.2, Immature Gran % (Auto) 0.400, Neut % (Auto) 55.0, Lymph % (Auto) 31.1, [place] % (Auto) 10.7 H, Eos % (Auto) 2.0, Baso % (Auto) 0.8, Absolute Neuts (auto) 5.6, Nucleated RBC % 0 12/29/19 16:05: PT 13.9, INR 1.1, APTT 151.2 H* 12/29/19 16:05: Sodium 140, Potassium 4.3, Chloride 109 H, Carbon Dioxide 27.0, Anion Gap 4 L, BUN 25 H, Creatinine 1.27, Est GFR (MDRD) Af Amer 70, Est GFR (MDRD) Non-Af 58 L, BUN/Creatinine Ratio 19.7, Glucose 111 H, Calcium 10.0, Troponin I < 0.015 Rhythm: EKG: ECHO: Stress Test: Cardiac Cath: PCI: CT Surgery: Holter monitor: EPS: PPM: CXR: Chest CT Scan: Assessment/Plan 1. Chest pain: This could be just from his A. fib with RVR. However there is some EKG changes which are suspicious for significant underlying coronary artery disease and in fact suspicion for STEMI as well. Because of these EKG changes and ongoing chest pain we felt that it would be reasonable to simultaneously proceed with coronary angiography and heart rate control at the same time. Patient was given IV Cardizem in the ER and then brought emergently to the cardiac [facility] [employer] [facility]. He underwent coronary angiography which revealed patent 2 out of 3 bypass grafts. The SVG to RCA is occluded and appears to be a chronic occlusion. He has collaterals to the right. It appears that patient's chest pain is likely from a combination of A. fib with RVR and underlying coronary artery disease. We will control patient's heart rate, trend his troponin. Patient will be admitted to the ICU for observation overnight and then if he is stable could be transferred to the PCU tomorrow. 2. A. fib with RVR: IV Cardizem for heart rate control.
--- NOTE | 2019-12-29 19:24 | HP.PCM_ITS ---
History of Present Illness Date of Admission: 12/29/19 Chief Complaint: Chest pain The patient is a 79 year old M with a PMH as below who presents with chest pain that started around 315 this afternoon. He was brought in by ambulance and was given aspirin in the ambulance. He had an EKG that was concerning for a STEMI and therefore cardiology was consulted. Cardiology took him to the [facility] however they did not need his stent given a patent LAD and the rest of his vessels had significant disease that were not amenable to either bypass or stenting. He was seen after his cardiac cath and states that he is feeling pretty well though he does we will that his heart is racing a little bit. He states that he used to have A. fib and was on anticoagulation however they took him off of it since he is had multiple cardioversions as well as an ablation. 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. On presentation he was in A. fib with RVR which is likely the cause of his chest pain secondary to demand ischemia. His troponin on arrival to the ER was normal. Past Medical History Past Medical History (Chronic Problems): Chronic Problems (Last Reviewed 05/23/19 @ 14:22 by Yuko Encarnacion) DDD (degenerative disc disease), lumbar (Chronic) Chronic tachycardia (Chronic) Iatrogenic hypothyroidism (Chronic) HLD (hyperlipidemia) (Chronic) HTN (hypertension) (Chronic) Carotid bruit (Chronic) Sleep apnea (Chronic) S/P radiofrequency ablation operation for arrhythmia (Chronic) Myalgia (Chronic) Hypothyroidism (Chronic) Iron deficiency anemia (Chronic) Persistent atrial fibrillation (Chronic) Nonrheumatic mitral (valve) prolapse (Chronic) Atherosclerotic heart disease of [place] coronary artery without angina pectoris (Chronic) Abdominal aortic aneurysm, without rupture (Chronic) Atherosclerosis of coronary artery bypass graft without angina pectoris (Chronic) Presence of aortocoronary bypass graft (Chronic) GERD (gastroesophageal reflux disease) (Chronic) Cardiac arrhythmia (Chronic) Hypothyroidism (Chronic) Hypertension (Chronic) Amiodarone pulmonary toxicity (Chronic) Coronary arteriosclerosis (Chronic) Chest pain (Chronic) Medical History: Medical History (Last Reviewed 05/23/19 @ 14:22 by Yuko Encarnacion) Chronic tachycardia (Chronic) R00.0 Iatrogenic hypothyroidism (Chronic) E03.2 HLD (hyperlipidemia) (Chronic) E78.5 HTN (hypertension) (Chronic) I10 Carotid bruit (Chronic) R09.89 Sleep apnea (Chronic) G47.30 Myalgia (Chronic) M79.1 Hypothyroidism (Chronic) E03.9 Iron deficiency anemia (Chronic) D50.9 Persistent atrial fibrillation (Chronic) I48.1 Nonrheumatic mitral (valve) prolapse (Chronic) I34.1 Atherosclerotic heart disease of [place] coronary artery without angina pectoris (Chronic) I25.10 Abdominal aortic aneurysm, without rupture (Chronic) I71.4 Atherosclerosis of coronary artery bypass graft without angina pectoris (Chronic) I25.810 History of left heart catheterization Onset Date: ~10/1998 Z98.890 Allergies acetaminophen Allergy (Verified 12/29/19 15:34) liver affects amiodarone Allergy (Verified 12/29/19 15:34) cough hydrochlorothiazide Allergy (Verified 12/29/19 15:34) Unknown rosuvastatin calcium [From Crestor] Allergy (Verified 12/29/19 15:34) Unknown Ubjtcdj-Fcb-Zlu Reductase Inhibitor Allergy (Verified 12/29/19 15:34) Unknown Home Medications: Ambulatory Orders Medication Instructions Recorded Omeprazole [Prilosec] 20 mg PO DAILY 08/21/13 Aspirin [Aspirin, Baby] 81 mg PO DAILY@0800 10/03/15 Levothyroxine [Synthroid] 75 mcg PO DAILY 10/03/15 Multivitamins,Therapeutic 1 tab PO DAILY 10/03/15 [Multivitamin] Nitroglycerin (INPATIENT USE) 0.4 mg SUBLINGUAL Q5M PRN 10/03/15 [Nitrostat] losartan 50 mg tablet 50 mg PO BID #180 tab 11/08/17 calcium carbonate-vitamin D3 600 1 tab PO BID tab 11/16/17 mg (1,500 mg)-800 unit tablet diltiazem HCl 240 mg 240 mg PO DAILY cap 11/16/17 capsule,extended release 24 hr fluticasone propionate 50 50 mcg INTRANASAL BID PRN 11/16/17 mcg/actuation nasal spray,suspension Acetaminophen [Mapap] 500 mg PO Q6H PRN PRN 12/29/19 Co Q10 200 [Co Q-10] 100 mg PO BID 12/29/19 Rosuvastatin Calcium 5 mg PO DAILY 12/29/19 Surgical History: Surgical History (Last Reviewed 05/23/19 @ 14:22 by Yuko Encarnacion) S/P radiofrequency ablation operation for arrhythmia (Chronic) Z98.890, Z86.79 Presence of aortocoronary bypass graft (Chronic) Z95.1 History of meniscectomy of left knee Onset Date: 10/26/12 Z98.890 Hx of CABG Onset Date: ~10/1998 Z95.1 CAMERON to LAD, SVG to Ramus Intermedius Surgical History: cataract, coronary bypass surgery, tonsillectomy, - - Ablation for atrial fibrillation, TURP, arthroscopy left knee Psychiatric History: No pertinent psych hx Smoking Status: Never smoker Tobacco Use: Non-smoker Alcohol: None Drugs: None - *Family History Maternal Family History: Family History (Last Reviewed 05/23/19 @ 14:22 by Yuko Encarnacion) Father Hypertension HLD (hyperlipidemia) Cancer Mother Hypertension Myocardial infarction, Onset Age: 70 Asthma Heart disease Brother Kidney disease Cancer Sister HLD (hyperlipidemia) Heart disease Hypertension Bleeding disorder Son HLD (hyperlipidemia) History Items: Heart Disease, Hypertension Paternal Family History: Family History (Last Reviewed 05/23/19 @ 14:22 by Yuko Encarnacion) Father Hypertension HLD (hyperlipidemia) Cancer Mother Hypertension Myocardial infarction, Onset Age: 70 Asthma Heart disease Brother Kidney disease Cancer Sister HLD (hyperlipidemia) Heart disease Hypertension Bleeding disorder Son HLD (hyperlipidemia) History Items: Hypertension Sibling Family History: Family History (Last Reviewed 05/23/19 @ 14:22 by Yuko Encarnacion) Father Hypertension HLD (hyperlipidemia) Cancer Mother Hypertension Myocardial infarction, Onset Age: 70 Asthma Heart disease Brother Kidney disease Cancer Sister HLD (hyperlipidemia) Heart disease Hypertension Bleeding disorder Son HLD (hyperlipidemia) History Items: Cancer, Hypertension Review of Systems Constitutional: Denies: Chills, Fever, Weight Change HEENT: Denies: Head Aches, Sinus Congestion, Sinus Drainage Cardiovascular: Reports: Chest Pain. Denies: Palpitations Respiratory: Denies: Cough, Shortness of breath at rest, Sputum production Gastrointestinal: Denies: Abdominal Pain, Nausea, Vomiting Genitourinary: Denies: Dysuria Musculoskeletal: Denies: Joint Pain, Joint Tenderness Skin: Denies: Rash, Wounds Neurological: Denies: Numbness, Tingling, Focal weakness Psychiatric: Denies: Anxiety, Depression Hematologic/ Lymphatic: Denies: Easy Bruising, Easy Bleeding VTE Information - Inpt Only VTE Present on Admission: No Patient Problems: Active and Suspected Problems (Last Reviewed 05/23/19 @ 14:22 by Yuko Encarnacion) Acute ST elevation myocardial infarction (STEMI) (Acute) Atrial fibrillation with rapid ventricular response (Acute) - Physical Exam Vitals/I&O's: Vital Signs Temp Pulse Resp BP Pulse Ox 97.3 F L 119 H 15 147/79 H 91 12/29/19 18:25 12/29/19 18:30 12/29/19 18:30 12/29/19 18:30 12/29/19 18:25 Oxygen Flow Rate (L/min) 2 Oxygen Delivery Method Room Air Weight: 172 lb Body Mass Index (BMI) 26.9 General: Alert, Oriented x3, Cooperative, No apparent distress HEENT: Atraumatic, PERRLA, EOMI, Normocephalic Oral: Moist Mucosa Neck: Supple, No JVD Lungs: Clear to auscultation, Normal air movement, No rhonchi, No wheeze, No r ales, Diminished Cardiovascular: No murmurs, Irregular Rate, - - Irregular rhythm Abdomen: Soft, Non Tender, Non-Distended, No Hepato-splenomegaly Extremities: No edema, Capillary Refill Less than 3 Seconds Skin: No rashes, No breakdown, Incision - Dressing intact Neurological: Neuro grossly intact, Sensory exam intact to light touch and pain Psych/Mental Status: Normal Affect, Appropriate Laboratory Results 12/29/19 16:05: WBC 10.1, RBC 4.68, Hgb 14.0, Hct 42.9, MCV 91.7, MCH 29.9, MCHC 32.6, RDW Std Deviation 45.4 H, RDW Coeff of Rika 13.5, Plt Count 229, MPV 9.2, Immature Gran % (Auto) 0.400, Neut % (Auto) 55.0, Lymph % (Auto) 31.1, [place] % (Auto) 10.7 H, Eos % (Auto) 2.0, Baso % (Auto) 0.8, Absolute Neuts (auto) 5.6, Absolute Lymphs (auto) 3.14, Nucleated RBC % 0 12/29/19 16:05: PT 13.9, INR 1.1, APTT 151.2 H* 12/29/19 16:05: Sodium 140, Potassium 4.3, Chloride 109 H, Carbon Dioxide 27.0, Anion Gap 4 L, BUN 25 H, Creatinine 1.27, Estim Creat Clear Calc 42.65, Est GFR (MDRD) Af Amer 70, Est GFR (MDRD) Non-Af 58 L, BUN/Creatinine Ratio 19.7, Glucose 111 H, Calcium 10.0, Troponin I < 0.015 12/29/19 19:10: Troponin I Pending Current Medications Aspirin (Aspirin, Baby) 81 mg PO DAILY@0800 [facility] Atropine Sulfate () 0.5 mg IV UD PRN PRN Reason: HR <50 bpm Calcium/Vitamin D (Os-Ronaldo 500mg + D) 1 tablet PO BIDCM [facility] Diltiazem HCl (Cardizem Cd) 240 mg PO DAILY [facility] Fluticasone Propionate (Flonase Nasal Edson) 1 spray NASAL BID PRN PRN Reason: CONGESTION Heparin Sodium (Beef Lung) (Heparin 500 Unit/5 Ml (100/Ml)) 500 unit IV UD PRN PRN Reason: HEPARIN FLUSH Diltiazem HCl 125 mg/ Dextrose 125 mls @ 5 mls/hr IV .Q25H GUNJAN; Protocol Labetalol HCl (Trandate) 5 mg IV X1 PRN PRN Reason: SBP>160 when pulling sheath Levothyroxine Sodium (Synthroid) 75 mcg PO DAILY@0600 [facility] Losartan Potassium (Cozaar) 50 mg PO BID [facility] Multivitamins (Multivitamin) 1 tablet PO DAILYCM [facility] Nitroglycerin (Nitrostat) 0.4 mg SUBLINGUAL Q5M PRN PRN Reason: CHEST Pantoprazole Sodium (Protonix) 20 mg PO DAILY [facility] Rosuvastatin Calcium (Crestor) 5 mg PO QHS [facility] Sodium Chloride () 500 ml IV BOLUS PRN PRN Reason: VASO-VAGAL PROTOCOL Sodium Chloride () 10 - 40 ml IV UD PRN PRN Reason: SALINE FLUSH Assessment/Plan All Active Problems (Last Reviewed 05/23/19 @ 14:22 by Yuko Encarnacion) Acute ST elevation myocardial infarction (STEMI) (Acute) Atrial fibrillation with rapid ventricular response (Acute) Segmental and somatic dysfunction of thoracic region (Acute) Sciatica (Acute) Segmental and somatic dysfunction of pelvic region (Acute) Segmental and somatic dysfunction of lumbar region (Acute) 1. Unstable angina/CAD status post bypass/A. fib with RVR/HTN/HLD -His LAD was found to be patent however 1 of his bypass graft to his RCA is completely occluded and his circumflex has significant disease. None is amenable to bypass or stenting -Likely related to his A. 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 fib, though EKG does appear that he is at least in paroxysmal A. fib and therefore will likely need to be restarted on his anticoagulation 2. GERD -Stable -Continue with PPI 3. Hypothyroidism -Stable, TSH in June 2019 was 1.62 -Continue with Synthroid DVT: SCDs Code Visit Inpatient E&M: 48417 Init Hosp L3
--- NOTE | 2019-12-29 21:38 | CL.D_ITS ---
Patient Name: DAYTON TINAJERO Study Date: 12/29/2019 Performing: Chris Goodwin MD Ht: 66.92 inches 170 cm : 1940 Wt: 171.96 lbs 78 kg Age: 79 Gender: male BSA: 1.89 PROCEDURE(S) PERFORMED KN33-SGC/COR/LV/CABG DC11-AO ROOT ANGIO WITH HEART CATH CLINICAL PROFILE AND INDICATIONS Indications: ACS <= 24 hrs Heart Failure: None Stress/Imaging Stress/Image Study Performed: No CAD Presentations: suspected STEMI. Symptom onset Date/Time: 12/29/19 15:15:00 Time Estimated CONCLUSIONS Severe [place] CAD as described. Patent 2/3 bypass grafts. LVEF is 40-45%. No significant . RECOMMENDATIONS DESCRIPTION OF PROCEDURE The patient arrived to the procedure lab. The risks and benefits of the procedure as well as a full d escription of our services here and current unavailability of surgical backup were fully explained to the patient and/or their significant other prior to the catheterization. The Timeout was completed, verifying the correct patient and procedure. The patient's procedural site was prepped and draped in the usual fashion. Local anesthetic was given subcutaneously to right groin region with Lidocaine 2%. Using a modified Seldinger technique, arterial access was obtained via the right femoral artery, a 6 Fr sheath was inserted. Right Coronary Artery selective angiography was then performed in multiple v iews using a 5 Fr. JR 4 catheter. Left internal mammary artery graft to the LAD selective angiography was performed in multiple views using a 5 Fr. IM catheter. Left Coronary Artery selective angiograph y was performed in multiple views using a 5 Fr. JL 5 catheter. Left Ventriculography was performed in MCQUEEN projection using a 6 Fr. Pigtail catheter. LV to AO pullback pressures were then rec orded. Ascending (root) aorta selective angiography was then performed in single view. Ascending (cheyanne t) aorta selective angiography was then performed in single view.Contrast was injected through the sh eath and the Right Iliac and Femoral artery were assessed for possible closure device.The arterial sh eath was pulled and a Perclose closure device was deployed for hemostasis. The arterial sheath was pu lled and a Starclose closure device was deployed for hemostasis CORONARY ANGIOGRAPHY DOMINANCE: Right Dominant LEFT HEART ASSESSMENT Left Ventricular Ejection Fraction: by LV Gram 40-45 % Akinetic basal inferior wall. Hypokinetic inferior wall. LEFT MAIN: 50-60 % distal Stenosis LEFT ANTERIOR DESCENDING ARTERY: MID LAD: 100 % Stenosis. There is a 70% stenosis in the ostial portion and 80% stenosis in the proxim al portion. CIRCUMFLEX ARTERY: OSTIAL CIRC: 99 % Stenosis. Lcx has diffuse disease RIGHT CORONARY ARTERY: MID RCA: is occluded. Collaterals to the RCA from the left system GRAFTS: CAMERON graft to the Mid LAD is patent Saphenous Vein graft to the Ramus is patent. Visualized with an aortogram. Selective engagement was u nsuccessful with several catheters. Further attempts were aborted to minimize risk of stroke as we fe lt this wouldnt change the management. Saphenous Vein graft to the RCA is totally occluded. Since there was a small possibility that this wa s not chronic we tried to cross the occlusion with a bmw wire and this was unsuccessful. VALVE FINDINGS: No Aortic Valve Stenosis Mitral Valve Insufficiency - Grade 2. However A fib and PVCs interfered with assessment of MR. AORTIC ROOT: Dilated COMPLICATIONS No Complications PROCEDURE MEDICATIONS Fentanyl 50 mcg IV Oxygen: 2 L/min via nasal cannula Oxygen: 4 L/min via nasal cannula Heparin 2000 unit(s) IV 12/29/2019 16:49:53 Zofran 4 mg IV 12/29/2019 18:04:37 IV Bolus: .9 NaCl 100 ml total 12/29/2019 17:40:30 SUMMARY OF HEMODYNAMIC DATA Time AIR REST ECG 16:20:05 AO 139/85 (110) SA 16:29:00 LV 121/22, 27 16:55:23 LV 118/21, 29 16:55:29 LVp 108/21, 25 16:55:39 AOp 121/79 (98) 16:55:44 Signed By Chris Goodwin MD On 12/29/2019 9:36:58 PM Chris Goodwin MD
--- NOTE | 2019-12-29 22:36 | NURSING ---
pt requested tylenol for neck pain, tylenol noted on allergy list by MD. When asked about reaction pt states its not good for my liver when i take too much. pt denies any other reactions to medication.
[2019-12-29] MEDS: Acetaminophen 500 MG Tablet PO (22:54)
[2019-12-29] MEDS: MELATONIN 3 MG TABLET PO (22:54)
[2019-12-29] MEDS: Rosuvastatin Calcium 5 MG Tablet PO (22:56)
[2019-12-29] MEDS: Losartan Potassium 50 MG Tablet PO (22:56)
[2019-12-30] VITALS (30 sets, daily range): BP systolic 89–148; BP diastolic 48–87; PULSE 80–108; RESP 13–23; TEMP 36.4–36.9; O2SAT 89–98
[2019-12-30] MEDS: Levothyroxine 75 MCG Tablet PO (06:00)
[2019-12-30 06:08] LABS: Hematocrit 35.9 % (40-54); Hemoglobin 11.9 g/dL (13.0-16.5); Mean Corp Hgb Conc 33.1 g/dL (32-36); Mean Corpuscular Hgb 30.5 pg (27.0-32.0); Mean Corpuscular Volume 92.1 fL (80-94); Mean Platelet Vol. 9.2 fl (6.2-12.0); Platelet Count 193 K/mm3 (150-450); RBC Distribution Width CV 13.5 % (11.6-14.6); RBC Distribution Width SD 45.3 fl (35.1-43.9); White Blood Count 10.4 K/mm3 (4.4-11.0)
[2019-12-30 06:29] LABS: AST(SGOT) 85 U/L (15-37); Alanine Aminotransfer ALT/SGPT 27 U/L (16-61); Albumin, Serum 3.2 g/dL (3.2-5.0); Alkaline Phosphatase 53 U/L (45-117); Anion Gap 4 (5-15); BUN 26 mg/dL (7-18); BUN/Creat Ratio 27.4 RATIO (10-20); Calcium,Total 8.8 mg/dL (8.5-10.1); Chloride 107 mmol/L (98-107); Creatinine, Serum 0.95 mg/dL (0.70-1.30); EST Glomerular Filtration Rate 81 mL/min (>60); Est Glom Filt Rate - Afr Amer 98 mL/min (>60); Estimated Creatinine Clearance 57.02 ml/min; Globulin 3.1 g/dL (2.2-4.2); Glucose 90 mg/dL (74-106); Potassium 3.9 mmol/L (3.5-5.1); Protein, Total 6.3 g/dL (6.4-8.2); Sodium Level 139 mmol/L (136-145)
[2019-12-30] MEDS: Aspirin 81 MG TAB.CHEW PO (08:06)
[2019-12-30] MEDS: Acetaminophen 500 MG Tablet PO ×2 (08:06→21:10)
[2019-12-30] MEDS: Calcium Carb/Vitamin D 1 TABLET Tablet PO ×2 (08:07→16:37)
[2019-12-30] MEDS: Multivitamins,Therapeutic Tablet 1 TABLET PO (08:07)
--- NOTE | 2019-12-30 09:10 | CM.UR ---
Participated in interdisciplinary rounds this am. Transitioning cardizem from IV to PO. Plan is to transfer to PCU today. Patient and deny any needs for discharge. Meera Johnson RN, [facility].
--- NOTE | 2019-12-30 09:30 | PN_ITS ---
Patient Problems: Active and Suspected Problems (Last Updated 12/30/19 @ 09:29 by Gala Fields MD) Acute ST elevation myocardial infarction (STEMI) (Suspected) Atrial fibrillation with rapid ventricular response (Acute) Subjective: Chief complaint: Follow-up after admission for suspected STEMI and A. fib with RVR. Patient seen and examined. No acute events overnight. Today, he has no more chest pain. Denied shortness of breath. Denied palpitation, dizziness or lightheadedness. Remains on IV Cardizem drip, heart rate slowed down to around 100. Plan to start p.o. Cardizem and discontinue IV Cardizem drip later this morning. Other vital signs are stable. - Physical Exam Vitals/I&O's: Vital Signs Temp Pulse Resp BP Pulse Ox 97.6 F L 97 20 H 103/53 L 95 12/30/19 08:00 12/30/19 09:00 12/30/19 09:00 12/30/19 09:00 12/30/19 09:00 Oxygen Flow Rate (L/min) 2 Oxygen Delivery Method Room Air Weight: 178 lb 2.136 oz Body Mass Index (BMI) 27.7 Intake and Output for Last 24 Hours 12/28/19 12/29/19 12/30/19 23:59 23:59 23:59 Intake Total 13.58 / 258.58 770 / 770 Output Total 700 / 700 Balance 13.58 / -141.42 70 / 70 General: Alert, Oriented x3, Cooperative, No apparent distress HEENT: Atraumatic, PERRLA, EOMI, Normocephalic Oral: Moist Mucosa, No Gingival or Mucosal Lesions/ Ulcerations Neck: Supple, No JVD, Negative Carotid Bruits, Trachea Midline, Thyroid Normal Size and Texture Lungs: Clear to auscultation, Normal air movement, No rhonchi, No wheeze, No rales, Diminished Cardiovascular: Normal S1, Normal S2, PMI Normal, Irregular Rate, Tachycardic Abdomen: Bowel Sounds Present, Soft, Non Tender, Non-Distended, No Hepato-splenomegaly Extremities: No clubbing, No cyanosis, No edema Skin: No rashes, No breakdown Lymphatic: No Cervical, Supraclavicular, or Inguinal Adenopathy Neurological: Cranial nerves II-XII grossly intact, Motor Exam 5/5 strength throughout Psych/Mental Status: Normal Affect, Appropriate, Alert and oriented to time, place, person, mood and affect Laboratory Results 12/29/19 16:05: WBC 10.1, RBC 4.68, Hgb 14.0, Hct 42.9, MCV 91.7, MCH 29.9, MCHC 32.6, RDW Std Deviation 45.4 H, RDW Coeff of Rika 13.5, Plt Count 229, MPV 9.2, Immature Gran % (Auto) 0.400, Neut % (Auto) 55.0, Lymph % (Auto) 31.1, [place] % (Auto) 10.7 H, Eos % (Auto) 2.0, Baso % (Auto) 0.8, Absolute Neuts (auto) 5.6, Absolute Lymphs (auto) 3.14, Nucleated RBC % 0 12/29/19 16:05: PT 13.9, INR 1.1, APTT 151.2 H* 12/29/19 16:05: Sodium 140, Potassium 4.3, Chloride 109 H, Carbon Dioxide 27.0, Anion Gap 4 L, BUN 25 H, Creatinine 1.27, Estim Creat Clear Calc 42.65, Est GFR (MDRD) Af Amer 70, Est GFR (MDRD) Non-Af 58 L, BUN/Creatinine Ratio 19.7, Glucose 111 H, Calcium 10.0, Troponin I < 0.015 12/29/19 19:10: Troponin I 1.020 H* 12/29/19 23:20: Troponin I 15.700 H* 12/30/19 06:00: WBC 10.4, RBC 3.90 L, Hgb 11.9 L, Hct 35.9 L, MCV 92.1, MCH 30.5, MCHC 33.1, RDW Std Deviation 45.3 H, RDW Coeff of Rika 13.5, Plt Count 193, MPV 9.2 12/30/19 06:00: Sodium 139, Potassium 3.9, Chloride 107, Carbon Dioxide 28.0, Anion Gap 4 L, BUN 26 H, Creatinine 0.95, Estim Creat Clear Calc 57.02, Est GFR (MDRD) Af Amer 98, Est GFR (MDRD) Non-Af 81, BUN/Creatinine Ratio 27.4 H, Glucose 90, Calcium 8.8, Total Bilirubin 0.50, AST 85 H, ALT 27, Alkaline Phosphatase 53, Total Protein 6.3 L, Albumin 3.2, Globulin 3.1, Albumin/Globulin Ratio 1.0 Current Medications Acetaminophen (Tylenol) 500 mg PO Q6H PRN PRN PRN Reason: Pain 1-08/31 Last Admin: 12/30/19 08:06 Dose: 500 mg Documented by: Aspirin (Aspirin, Baby) 81 mg PO DAILY@0800 [facility] Last Admin: 12/30/19 08:06 Dose: 81 mg Documented by: Atropine Sulfate () 0.5 mg IV UD PRN PRN Reason: HR <50 bpm Calcium/Vitamin D (Os-Ronaldo 500mg + D) [facility] Last Admin: 12/30/19 08:07 Dose: 1 tablet Documented by: Diltiazem HCl (Cardizem Cd) 240 mg PO DAILY [facility] Fluticasone Propionate (Flonase Nasal [place]) 1 spray NASAL BID PRN PRN Reason: CONGESTION Heparin Sodium (Beef Lung) (Heparin 500 Unit/5 Ml (100/Ml)) 500 unit IV UD PRN PRN Reason: HEPARIN FLUSH Diltiazem HCl 125 mg/ Dextrose 125 mls @ 5 mls/hr IV .Q25H [facility]; Protocol Last Titration: 12/30/19 09:00 Dose: 5 mg/hr, 5 mls/hr Documented by: Labetalol HCl (Trandate) 5 mg IV X1 PRN PRN Reason: SBP>160 when pulling sheath Levothyroxine Sodium (Synthroid) 75 mcg PO DAILY@0600 [facility] Last Admin: 12/30/19 06:00 Dose: 75 mcg Documented by: Losartan Potassium (Cozaar) 50 mg PO BID [facility] Last Admin: 12/29/19 22:56 Dose: 50 mg Documented by: Melatonin (Melatonin) 3 mg PO QHS PRN PRN PRN Reason: INSOMNIA Last Admin: 12/29/19 22:54 Dose: 3 mg Documented by: Multivitamins (Multivitamin) [facility] Last Admin: 12/30/19 08:07 Dose: 1 tablet Documented by: Nitroglycerin (Nitrostat) 0.4 mg SUBLINGUAL Q5M PRN PRN Reason: CHEST Ondansetron HCl (Zofran) 4 mg IV Q8H PRN PRN PRN Reason: NAUSEA/VOMITING Pantoprazole Sodium (Protonix) 20 mg PO DAILY [facility] Rosuvastatin Calcium (Crestor) 5 mg PO QHS [facility] Last Admin: 12/29/19 22:56 Dose: 5 mg Documented by: Sodium Chloride () 500 ml IV BOLUS PRN PRN Reason: VASO-VAGAL PROTOCOL Sodium Chloride () 10 - 40 ml IV UD PRN PRN Reason: SALINE FLUSH Medical Necessity - Tobacco Use Smoking Status: Never smoker Tobacco Use: Non-smoker Assessment/Plan All Active Problems (Last Updated 12/30/19 @ 09:29 by Gala Fields MD) Atrial fibrillation with rapid ventricular response (Acute) This is an 79 years old male patient presented to the emergency room because chest pain and there was suspected ST elevation on EKG, found to have A. fib with RVR and he underwent cardiac catheterization. #1 unstable angina/suspected ST depression ID: Status post cardiac catheterization that revealed patent 2 out of 3 bypass grafts, SVG to RCA is occluded which is chronic, has right collaterals. Decision was made for medical treatment. Today, patient is chest pain-free, vital signs stabilized. He is on aspirin, losartan and metoprolol. Cardiology on the case. Plan to continue same treatment, transfer to PCU later this morning. #2 A. fib with RVR: In context of history of chronic A. fib. He is on IV Cardizem drip. Heart rate slowed down to around 100, blood pressure stable. He has no symptoms. Plan to start p.o. Cardizem, discontinue IV Cardizem drip if heart rate remained stable, transfer to PCU later this morning. #3 CAD status post CABG: Stable, cardiac catheterization reviewed as above. Continue aspirin, statins, losartan. #4 hypertension: Blood pressure stable, continue losartan. #5 hypothyroidism: Stable, continue levothyroxine. #6 hyperlipidemia: Continue statins. #7 GERD: Continue PPI. #9 DVT prophylaxis: SCDs. This note was generated with [employer] dictation software. It may contain incorrect words, spelling, and punctuation that were not noted in checking the note before signing. Code Visit Inpatient E&M: 22473 Subs Hosp L2
[2019-12-30] MEDS: Pantoprazole Sodium 20 MG Tablet PO (09:41)
[2019-12-30] MEDS: dilTIAZem CD 240 MG Capsule PO (09:41)
--- NOTE | 2019-12-30 10:00 | EKG12_ITS ---
Test Reason : AM Blood Pressure : / mmHG Vent. Rate : 088 BPM Atrial Rate : 088 BPM P-R Int : 186 ms QRS Dur : 096 ms QT Int : 422 ms P-R-T Axes : 111 013 023 degrees QTc Int : 510 ms Sinus rhythm with marked sinus arrhythmia ST abnormality, possible digitalis effect Prolonged QT Abnormal ECG When compared with ECG of 29-DEC-2019 15:40, MANUAL COMPARISON REQUIRED, DATA IS UNCONFIRMED Confirmed by JUANITA GLASGOW, ALFREDO ([id number]), assistant production editor ROSALBA MCKEON ([id number]) on 01/02/2020 8:15:02 AM Referred By: Anuj Goodwin Confirmed By:ALFREDO GRANT MD
[2019-12-30] MEDS: Metoprolol(XL)Succ 25 MG Tablet PO (12:07)
[2019-12-30] MEDS: Rosuvastatin Calcium 5 MG Tablet PO (21:10)
[2019-12-30] MEDS: MELATONIN 3 MG TABLET PO (21:10)
[2019-12-30] MEDS: Losartan Potassium 50 MG Tablet PO (21:10)
--- NOTE | 2019-12-30 21:30 | NURSING ---
Pt called staff in to room, pt c/o CP. Rates Pain 10/10 across midsternal to start with and then it went clear across the chest. Feels like just when I came in Wednesday for the heart attack per pt. Vitals obtained, pt given Ntg tab SL x1; BP 148/87, HR 104.
--- NOTE | 2019-12-30 21:30 | EKG12_ITS ---
Test Reason : CHEST PAIN Blood Pressure : / mmHG Vent. Rate : 086 BPM Atrial Rate : 086 BPM P-R Int : 174 ms QRS Dur : 098 ms QT Int : 398 ms P-R-T Axes : 083 019 091 degrees QTc Int : 476 ms Sinus rhythm with marked sinus arrhythmia ST depression, consider subendocardial injury Abnormal ECG When compared with ECG of 31-DEC-2019 05:54, MANUAL COMPARISON REQUIRED, DATA IS UNCONFIRMED Confirmed by JUANITA GLASGOW, ALFREDO ([id number]), communications editor ROSALBA MCKEON ([id number]) on 01/02/2020 8:16:03 AM Referred By: Anuj Goodwin Confirmed By:ALFREDO GRANT MD
--- NOTE | 2019-12-30 21:33 | EKG12_ITS ---
Test Reason : CP Blood Pressure : / mmHG Vent. Rate : 107 BPM Atrial Rate : 107 BPM P-R Int : 208 ms QRS Dur : 104 ms QT Int : 336 ms P-R-T Axes : 035 004 162 degrees QTc Int : 448 ms Sinus tachycardia with Premature atrial complexes Diffuse Coronary ischmia Consider right ventricular involvement in acute inferior infarct Abnormal ECG When compared with ECG of 30-DEC-2019 05:51, MANUAL COMPARISON REQUIRED, DATA IS UNCONFIRMED Confirmed by JUANITA GLASGOW, ALFREDO ([id number]), subeditor TIARA ANDERS ([id number]) on 01/03/2020 12:59:46 PM Referred By: Anuj Goodwin Confirmed By:ALFREDO GRANT MD
--- NOTE | 2019-12-30 21:40 | NURSING ---
Pt cont to c/o CP 4/10 across whole chest still. 2nd Ntg tab given SL to pt, BP 118/78, HR 108.
--- NOTE | 2019-12-30 21:47 | NURSING ---
Pt reports CP is now 01/01. BP 103/55, HR 102. Pt informed of all orders received this far.
[2019-12-30] MEDS: Nitroglycerin Oint 1 INCH PACKET TRANSDERM. (22:24)
[2019-12-30] MEDS: Nitroglycerin Infusion 250 ML 3 MG CONT INF (23:00)
[2019-12-30] MEDS: Metoprolol Tartrate 25 MG Tablet PO (23:06)
[2019-12-31] VITALS (21 sets, daily range): BP systolic 79–110; BP diastolic 51–73; PULSE 76–91; RESP 14–20; TEMP 36.6–36.9; O2SAT 96–99
[2019-12-31] MEDS: Levothyroxine 75 MCG Tablet PO (05:26)
--- NOTE | 2019-12-31 08:36 | PN_ITS ---
Patient Problems: Active and Suspected Problems (Last Updated 12/30/19 @ 09:29 by Gala Fields MD) Acute ST elevation myocardial infarction (STEMI) (Suspected) Atrial fibrillation with rapid ventricular response (Acute) Subjective: Chief complaint: Follow-up after admission for STEMI and A. fib with RVR. Patient seen and examined. Overnight, patient developed chest pain for which EKG done and revealed sinus tachycardia, PACs, ST segment depression in leads V2 to V6 and those changes are new. STEMI was called and patient was started on IV nitroglycerin drip according to cardiology recommendations. Patient became hypotensive and nitroglycerin was held. This morning, patient denied any more chest pain. Denied shortness of breath, dizziness or lightheadedness. Blood pressure improved. Other vital signs are stable. - Physical Exam Vitals/I&O's: Vital Signs Temp Pulse Resp BP Pulse Ox 98.3 F 77 17 102/57 L 96 12/31/19 07:26 12/31/19 07:26 12/31/19 07:26 12/31/19 07:26 12/31/19 07:30 Oxygen Flow Rate (L/min) 2 Oxygen Delivery Method Nasal Cannula Weight: 177 lb 14.609 oz Body Mass Index (BMI) 27.7 Intake and Output for Last 24 Hours 12/29/19 12/30/19 12/31/19 23:59 23:59 23:59 Intake Total 13.58 / 258.58 1017.25 / 1218.00 252.25 / 252.25 Output Total 1150 / 1525 775 / 775 Balance 13.58 / -141.42 -132.75 / -307.00 -522.75 / -522.75 General: Alert, Oriented x3, Cooperative, No apparent distress HEENT: Atraumatic, PERRLA, EOMI, Normocephalic Oral: Moist Mucosa, No Gingival or Mucosal Lesions/ Ulcerations Neck: Supple, No JVD, Negative Carotid Bruits, Trachea Midline, Thyroid Normal Size and Texture Lungs: Clear to auscultation, Normal air movement, No rhonchi, No wheeze, No rales, Diminished Cardiovascular: Regular rate, Regular Rhythm, Normal S1, Normal S2, PMI Normal Abdomen: Bowel Sounds Present, Soft, Non Tender, Non-Distended, No Hepato- splenomegaly Extremities: No clubbing, No cyanosis, No edema Skin: No rashes, No breakdown Lymphatic: No Cervical, Supraclavicular, or Inguinal Adenopathy Neurological: Cranial nerves II-XII grossly intact, Neuro grossly intact Psych/Mental Status: Normal Affect, Appropriate Current Medications Acetaminophen (Tylenol) 500 mg PO Q6H PRN PRN PRN Reason: Pain 1-08/31 Last Admin: 12/30/19 21:10 Dose: 500 mg Documented by: Aspirin (Aspirin, Baby) 81 mg PO DAILY@0800 [facility] Last Admin: 12/30/19 08:06 Dose: 81 mg Documented by: Atropine Sulfate () 0.5 mg IV UD PRN PRN Reason: HR <50 bpm Calcium/Vitamin D (Os-Ronaldo 500mg + D) 1 tablet PO BIDCM [facility] Last Admin: 12/30/19 16:37 Dose: 1 tablet Documented by: Diltiazem HCl (Cardizem Cd) 240 mg PO DAILY [facility] Last Admin: 12/30/19 09:41 Dose: 240 mg Documented by: Fluticasone Propionate (Flonase Nasal [place]) 1 spray NASAL BID PRN PRN Reason: CONGESTION Heparin Sodium (Beef Lung) (Heparin 500 Unit/5 Ml (100/Ml)) 500 unit IV UD PRN PRN Reason: HEPARIN FLUSH Nitroglycerin/Dextrose () 250 mls @ 6 mls/hr CONT INF .[id number] [facility]; Protocol Last Titration: 12/31/19 05:00 Dose: 0 mcg/min, 0 mls/hr Documented by: Labetalol HCl (Trandate) 5 mg IV X1 PRN PRN Reason: SBP>160 when pulling sheath Levothyroxine Sodium (Synthroid) 75 mcg PO DAILY@0600 [facility] Last Admin: 12/31/19 05:26 Dose: 75 mcg Documented by: Losartan Potassium (Cozaar) 50 mg PO BID [facility] Last Admin: 12/30/19 21:10 Dose: 50 mg Documented by: Melatonin (Melatonin) 3 mg PO QHS PRN PRN PRN Reason: INSOMNIA Last Admin: 12/30/19 21:10 Dose: 3 mg Documented by: Metoprolol Succinate (Toprol Xl (Beta [place])) 25 mg PO DAILY [facility] Last Admin: 12/30/19 12:07 Dose: 25 mg Documented by: [facility]it[facility]) [facility] Last Admin: 12/30/19 08:07 Dose: 1 tablet Documented by: Nitroglycerin (Nitrostat) 0.4 mg SUBLINGUAL Q5M PRN PRN Reason: CHEST Ondansetron HCl (Zofran) 4 mg IV Q8H PRN PRN PRN Reason: NAUSEA/VOMITING Pantoprazole Sodium (Protonix) 20 mg PO DAILY [facility] Last Admin: 12/30/19 09:41 Dose: 20 mg Documented by: Rosuvastatin Calcium (Crestor) 5 mg PO QHS [facility] Last Admin: 12/30/19 21:10 Dose: 5 mg Documented by: Sodium Chloride () 500 ml IV BOLUS PRN PRN Reason: VASO-VAGAL PROTOCOL Sodium Chloride () 10 - 40 ml IV UD PRN PRN Reason: SALINE FLUSH Medical Necessity - Tobacco Use Smoking Status: Never smoker Tobacco Use: Non-smoker Assessment/Plan All Active Problems (Last Updated 12/30/19 @ 09:29 by Gala Fields MD) Atrial fibrillation with rapid ventricular response (Acute) This is an 79 years old male patient presented to the emergency room because chest pain and there was suspected ST elevation on EKG, found to have A. fib with RVR and he underwent cardiac catheterization. #1 unstable angina/suspected ST depression IA: Status post cardiac catheterization that revealed patent 2 out of 3 bypass grafts, SVG to RCA is occluded which is chronic, has right collaterals. Decision was made for medical treatment. Overnight, patient developed chest pain again, EKG done and revealed new changes. It was called STEMI, patient was started on IV nitroglycerin drip. He became hypotensive, nitroglycerin drip discontinued. This morning, he had no more pain. Blood pressure improved. He is on aspirin, statins, losartan and metoprolol. Cardiology on the case. Will discuss with cardiology about the plan today. #2 A. fib with RVR: In context of history of chronic A. fib. She has been off Cardizem drip, on p.o. Cardizem and metoprolol for rate control. Heart rate stabilized, has been in the 70s, blood pressure improved this morning. He is not on anticoagulations. #3 CAD status post CABG: Developed chest pain last night, still was suspected again. He is off IV nitroglycerin drip. Continue aspirin, statins, losartan and metoprolol. #4 hypertension: Blood pressure improved after discontinuation of IV nitroglycerin drip, continue losartan. #5 hypothyroidism: Stable, continue levothyroxine. #6 hyperlipidemia: Continue statins. #7 GERD: Continue PPI. #9 DVT prophylaxis: Start subcu Lovenox for DVT prophylaxis. This note was generated with [employer] dictation software. It may contain incorrect words, spelling, and punctuation that were not noted in checking the note before signing. Code Visit Inpatient E&M: 07437 Subs Hosp L2
[2019-12-31] MEDS: dilTIAZem CD 240 MG Capsule PO (09:54)
[2019-12-31] MEDS: Calcium Carb/Vitamin D 1 TABLET Tablet PO ×2 (09:54→16:31)
[2019-12-31] MEDS: Pantoprazole Sodium 20 MG Tablet PO (09:54)
[2019-12-31] MEDS: Aspirin 81 MG TAB.CHEW PO (09:55)
[2019-12-31] MEDS: Multivitamins,Therapeutic Tablet 1 TABLET PO (09:55)
[2019-12-31] MEDS: Metoprolol(XL)Succ 25 MG Tablet PO (09:55)
[2019-12-31] MEDS: Losartan Potassium 50 MG Tablet PO ×2 (09:56→21:49)
--- NOTE | 2019-12-31 10:00 | EKG12_ITS ---
Test Reason : AM EKG Blood Pressure : / mmHG Vent. Rate : 083 BPM Atrial Rate : 083 BPM P-R Int : 196 ms QRS Dur : 096 ms QT Int : 416 ms P-R-T Axes : 048 010 003 degrees QTc Int : 488 ms Sinus rhythm with marked sinus arrhythmia Nonspecific ST abnormality Prolonged QT Abnormal ECG When compared with ECG of 30-DEC-2019 21:33, MANUAL COMPARISON REQUIRED, DATA IS UNCONFIRMED Confirmed by JUANITA GLASGOW, ALFREDO ([id number]), managing editor ROSALBA MCKEON ([id number]) on 01/02/2020 8:16:55 AM Referred By: Anuj Goodwin Confirmed By:ALFREDO GRANT MD
[2019-12-31] MEDS: Enoxaparin 40 MG/0.4 ML Syringe SC (10:02)
--- NOTE | 2019-12-31 10:04 | PN.CARD_ITS ---
Subjectve: This is the note for patient visit from 12/30/2019 Overnight patient converted to sinus rhythm. He does not have any chest pain at this time. Objective: Vital Signs Temp Pulse Resp BP Pulse Ox 98.4 F 84 14 110/73 98 12/31/19 09:50 12/31/19 09:55 12/31/19 09:50 12/31/19 09:55 12/31/19 09:50 Oxygen Flow Rate (L/min) 2 Oxygen Delivery Method Nasal Cannula Weight: 177 lb 14.609 oz Body Mass Index (BMI) 27.7 Intake and Output for Last 24 Hours 12/29/19 12/30/19 12/31/19 23:59 23:59 23:59 Intake Total 13.58 / 258.58 1017.25 / 1218.00 252.25 / 252.25 Output Total 1150 / 1525 775 / 775 Balance 13.58 / -141.42 -132.75 / -307.00 -522.75 / -522.75 General: Awake, Alert, Oriented x 3 HEENT: Atraumatic Oral: Moist Mucosa Neck: Supple Lungs: Clear to auscultation Cardiovascular: Regular Rhythm Abdomen: Soft Extremities: No Cyanosis Skin: No Rashes Psych/Mental Status: Appropriate Rhythm: EKG: ECHO: Stress Test: Cardiac Cath: PCI: CT Surgery: Holter monitor: EPS: PPM: CXR: Chest CT Scan: Medical Necessity - Tobacco Use Smoking Status: Never smoker Tobacco Use: Non-smoker Assessment/Plan 1. Chest pain: It appears that his chest pain is from a combination of underlying coronary artery disease and A. fib with RVR. We will add low-dose beta-charlene to help with heart rate control. Patient states that he could not tolerate 300 mg of Cardizem in the past. He recalls having some problem with metoprolol as well but is not sure what that was. At one point his primary audiovisual equipment operator had referred him for a pacemaker and the eyeglass lens grinder felt that he did not require it at that time. Patient does mention that he has had slow heart rate as well. 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 2. A. fib: Patient converted to sinus rhythm with PACs. We are adding beta- charlene.
--- NOTE | 2019-12-31 12:37 | PN.CARD_ITS ---
Subjectve: Patient had an episode of chest pain yesterday. EKG revealed tachycardia with some ST-T changes similar to what the patient had upon initial presentation. Patient was given sublingual nitroglycerin and was started on nitro drip. His chest pain resolved. Patient ambulated with physical therapy today without any chest pain. Objective: Vital Signs Temp Pulse Resp BP Pulse Ox 98.4 F 85 14 110/73 98 12/31/19 09:50 12/31/19 11:04 12/31/19 09:50 12/31/19 09:55 12/31/19 09:50 Oxygen Flow Rate (L/min) 2 Oxygen Delivery Method Nasal Cannula Weight: 177 lb 14.609 oz Body Mass Index (BMI) 27.7 Intake and Output for Last 24 Hours 12/29/19 12/30/19 12/31/19 23:59 23:59 23:59 Intake Total 13.58 / 258.58 1017.25 / 1218.00 872.25 / 872.25 Output Total 1150 / 1525 1375 / 1375 Balance 13.58 / -141.42 -132.75 / -307.00 -502.75 / -502.75 General: Awake, Alert, Oriented x 3 HEENT: Atraumatic Oral: Moist Mucosa Neck: Supple Lungs: Clear to auscultation Cardiovascular: Regular Rhythm Abdomen: Soft Extremities: No edema Skin: No Rashes Psych/Mental Status: Appropriate Rhythm: EKG: ECHO: Stress Test: Cardiac Cath: PCI: CT Surgery: Holter monitor: EPS: PPM: CXR: Chest CT Scan: Medical Necessity - Tobacco Use Smoking Status: Never smoker Tobacco Use: Non-smoker Assessment/Plan 1. Chest pain: It appears that his chest pain is from a combination of underlying coronary artery disease and A. fib with RVR. We continue low-dose beta-charlene to help with heart rate control. Patient states that he could not tolerate 300 mg of Cardizem in the past. He recalls having some problem with metoprolol as well but is not sure what that was. At one point his primary ca rdiologist had referred him for a pacemaker and the automatic line set up mechanic felt that he did not require it at that time. Patient does mention that he has had slow heart rate as well. 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 Patient was able to ambulate today without chest pain. We will stop the nitroglycerin and monitor the patient. If he has more chest pain then we will add oral long-acting nitroglycerin if blood pressure allows or Ranexa. 2. A. fib: Patient converted to sinus rhythm with PACs. Continue beta-charlene. We will restart Xarelto. We will hold off on triple therapy at this time as patient had bruising in the past with just aspirin and Xarelto.
[2019-12-31] MEDS: Rivaroxaban 20 MG Tablet PO (16:31)
[2019-12-31] MEDS: Senna Tablet 1 TABLET PO (18:47)
[2019-12-31] MEDS: Acetaminophen 500 MG Tablet PO (21:49)
[2019-12-31] MEDS: MELATONIN 3 MG TABLET PO (21:49)
[2019-12-31] MEDS: Rosuvastatin Calcium 5 MG Tablet PO (21:51)
[2020-01-01] VITALS (11 sets, daily range): BP systolic 103–125; BP diastolic 50–68; PULSE 71–99; RESP 15–16; TEMP 36.8–37; O2SAT 92–96
[2020-01-01] MEDS: Nitroglycerin (INPATIENT USE) 0.4 MG TAB.SUBL SUBLINGUAL ×2 (03:49→09:55)
--- NOTE | 2020-01-01 04:04 | NURSING ---
Pt had c/o chest pain. EKG performed, applied O2 2L NC, and gave one SL nitroglycerin with relief from 8/10 pain to 2/10. Pt refusing more NTG at this time. EKG evaluate by Dr. Goodwin and reported as no STEMI.
[2020-01-01] MEDS: 0.9% Saline Lock 10 ML Syringe IV (05:47)
[2020-01-01] MEDS: Levothyroxine 75 MCG Tablet PO (05:47)
[2020-01-01] MEDS: Aspirin 81 MG TAB.CHEW PO (08:45)
[2020-01-01] MEDS: Pantoprazole Sodium 20 MG Tablet PO (08:45)
[2020-01-01] MEDS: Multivitamins,Therapeutic Tablet 1 TABLET PO (08:45)
[2020-01-01] MEDS: Losartan Potassium 50 MG Tablet PO (08:45)
[2020-01-01] MEDS: Calcium Carb/Vitamin D 1 TABLET Tablet PO (08:45)
[2020-01-01] MEDS: dilTIAZem CD 240 MG Capsule PO (08:45)
[2020-01-01] MEDS: Metoprolol(XL)Succ 25 MG Tablet PO (08:45)
--- NOTE | 2020-01-01 10:00 | EKG12_ITS ---
Test Reason : AM EKG Blood Pressure : / mmHG Vent. Rate : 087 BPM Atrial Rate : 087 BPM P-R Int : 198 ms QRS Dur : 094 ms QT Int : 392 ms P-R-T Axes : 107 016 017 degrees QTc Int : 471 ms Normal sinus rhythm with sinus arrhythmia Normal ECG Confirmed by JUANITA GLASGOW, ALFREDO ([id number]), development editor ROSALBA MCKEON ([id number]) on 01/02/2020 8:15:48 AM Referred By: Anuj Goodwin Confirmed By:ALFREDO GRANT MD
--- NOTE | 2020-01-01 10:02 | DCINST_ITS ---
- Discharge Diagnoses Current Active Problems: Current Active and Chronic Problems (Last Updated 12/30/19 @ 09:29 by Gala Fields MD) Atrial fibrillation with rapid ventricular response (Acute) You will use the following diet at home:: No restrictions Your food should be the consistency of: Regular Your liquids should be the consistency of: Regular/Thin Discharge Activity: Return to Normal Activity Weight Bearing Status: Full weight bearing Allergies/Adverse Reactions: Allergies amiodarone Allergy (Verified 12/29/19 15:34) cough hydrochlorothiazide Allergy (Verified 12/29/19 15:34) Unknown rosuvastatin calcium [From Crestor] Allergy (Verified 12/29/19 15:34) Unknown Azoxsyf-Icq-Mbx Reductase Inhibitor Allergy (Verified 12/29/19 15:34) Unknown Medications to take at Discharge Omeprazole [Prilosec] 20 mg PO DAILY 08/21/13 Aspirin [Aspirin, Baby] 81 mg PO DAILY@0800 10/03/15 Levothyroxine [Synthroid] 75 mcg PO DAILY 10/03/15 Multivitamins,Therapeutic [Multivitamin] 1 tab PO DAILY 10/03/15 losartan 50 mg tablet 50 mg PO BID #180 tab 11/08/17 calcium carbonate-vitamin D3 600 mg (1,500 mg)-800 unit tablet 1 tab PO BID tab 11/16/17 diltiazem HCl 240 mg capsule,extended release 24 hr 240 mg PO DAILY cap 11/16/17 fluticasone propionate 50 mcg/actuation nasal spray,suspension 50 mcg INTRANASAL BID PRN 11/16/17 Acetaminophen [Mapap] 500 mg PO Q6H PRN PRN 12/29/19 Rosuvastatin Calcium 5 mg PO DAILY 12/29/19 Isosorbide Mononitrate [Imdur] 30 mg PO DAILY #30 tab 01/01/20 Metoprolol(XL)Succ [Toprol Xl (Beta Jayleen)] 25 mg PO DAILY #30 tab 01/01/20 Nitroglycerin (INPATIENT USE) [Nitrostat] 0.4 mg SUBLINGUAL Q5M PRN #25 01/01/20 Rivaroxaban [Xarelto] 20 mg PO DAILY@1700 #30 tab 01/01/20 The following prescriptions were given: Isosorbide Mononitrate [Imdur] 30 mg PO DAILY #30 tab Transmission Status: Received by [facility]/pharmacy #[id number] Nitroglycerin (INPATIENT USE) [Nitrostat] 0.4 mg SUBLINGUAL Q5M PRN #25 PRN Reason: Chest Pain Prescription Printed Metoprolol(XL)Succ [Toprol Xl (Beta Jayleen)] 25 mg PO DAILY #30 tab Transmission Status: Received by [facility]/pharmacy #[id number] Rivaroxaban [Xarelto] 20 mg PO DAILY@1700 #30 tab Transmission Status: Received by [facility]/pharmacy #[id number] Primary Care Physician: Juancho Coleman DO [Primary Care Provider] - Please follow up with your Primary Care Physician in: in 2 weeks Test Results: Test results from this visit will be discussed in further detail at your follow- up appointment, if applicable. Please Follow Up With: Anuj Goodwin MD When: as directed
[2020-01-01] MEDS: Isosorbide Mononitrate 30 MG Tablet PO (10:03)
[2020-01-01] MEDS: Acetaminophen 500 MG Tablet PO (10:06)
--- NOTE | 2020-01-01 10:19 | CASEMGMT ---
Pt to be sent home on Xarelto at discharge and med e-scribed to [facility] previously. Call to registered pharmacist at [facility] and per tech, pt's co-pay is $478 at this time but tech is unsure if part of this is deductible. She states that pt does have MCR D coverage and has gotten other meds this year already. Pt to be provided with Xarelto 30 day free trial card and advised to f/u with PCP/cardiology in regards to hospital admission and to advise them of cost of Xarelto at f/u. Tad TERRY CM
--- NOTE | 2020-01-01 10:28 | CASEMGMT ---
RN CM Assessment Introduced role of RN CM to patient, patient Mariola, Dtr in law, and patient sister at bedside, patient consents to RNCM assessment at this time in family presence.? Patient is alert, oriented and able?to participate in RN CM Assessment. ?Care providers, pharmacy, and demographics verified. Presentation: CP Admit Dx: Unstable Angina Re-Admit: No Barriers/Issues: None PCP: Segun Coleman Specialists: Cardio- Dt Pippa Adams [facility] Uses [facility] for mail order maintenance medications. Insurance: [employer] A&B, [employer] Rx Benefit:?Yes ?LNOK: Mariola Martín LW/HPOA: Yes states has both, aware this flex o writer operator did not see LW on file and in future if brought in, will scan a copy on file. HPOA on file and is akhil Garnett Martín Living Arrangements:? Lives with Mariola in a H, 3 steps to enter home ADL?s: Independent with ambulation and ADLs Transportation: Both patient and drive DME: None HHC: None SNF: None Goal: Home and does not think will have any needs. Mariola asking if patient can be left alone for short periods like grocery shopping or if someone needs to remain with patient at all times. Encouraged and patient to discuss with primary nurse and physician prior to DC. Denies any needs, concerns, issues or further questions with DC planning at this time. Aware CM remains available for any emerging needs. DC PLAN: Home with no anticipated needs identified at this time. Aware primary RNCM Neli Olivas called patient pharmacy [facility] and told Evangelina $478 and informed them that will provide patient with a 30day free coupon card. This flex o writer operator informed and discussed this with patient and and encouraged to discuss with steamfitter supervisor on f/u re: possibly changing to a different medication after the 30day free trial if copay is too costly for them. Acknowledged and agreed. JOHN Greenwood
--- NOTE | 2020-01-01 10:51 | PHA.DC.MC ---
Pharmacy Service has performed discharge medication reconciliation and counseling for this patient. 1. RIVAROXABAN 20MG PO WITH DINNER 2. METOPROLOL SUCCINATE 25MG PO DAILY 3. ISOSORBIDE MONONITRATE 30MG PO DAILY 4. NITROGLYCERIN 0.4MG SL Q5M PRN CHEST PAIN The patient's discharge medication list was reviewed for discrepancies and discrepancies were resolved. Home Medications Omeprazole [Prilosec] 20 mg PO DAILY 08/21/13 Aspirin [Aspirin, Baby] 81 mg PO DAILY@0800 10/03/15 Levothyroxine [Synthroid] 75 mcg PO DAILY 10/03/15 Multivitamins,Therapeutic [Multivitamin] 1 tab PO DAILY 10/03/15 losartan 50 mg tablet 50 mg PO BID #180 tab 11/08/17 calcium carbonate-vitamin D3 600 mg (1,500 mg)-800 unit tablet 1 tab PO BID tab 11/16/17 diltiazem HCl 240 mg capsule,extended release 24 hr 240 mg PO DAILY cap 11/16/17 fluticasone propionate 50 mcg/actuation nasal spray,suspension 50 mcg INTRANASAL BID PRN 11/16/17 Acetaminophen [Mapap] 500 mg PO Q6H PRN PRN 12/29/19 Rosuvastatin Calcium 5 mg PO DAILY 12/29/19 Isosorbide Mononitrate [Imdur] 30 mg PO DAILY #30 tab 01/01/20 Metoprolol(XL)Succ [Toprol Xl (Beta Jayleen)] 25 mg PO DAILY #30 tab 01/01/20 Nitroglycerin (INPATIENT USE) [Nitrostat] 0.4 mg SUBLINGUAL Q5M PRN #25 01/01/20 Rivaroxaban [Xarelto] 20 mg PO DAILY@1700 #30 tab 01/01/20 The patient was counseled on the following discharge medications and changes in medications for homegoing were reviewed. The Reason for Use, instructions for use, and potential side effects were reviewed for all new medications. The patient's questions regarding all of their medications were answered. The patient was able to verbally demonstrate an understanding of their discharge medications.
--- NOTE | 2020-01-01 12:46 | CASEMGMT ---
Patient has a Healthcare Power of Pediatric Cns on file at [facility]. He does not have a copy of his Healthcare Living Will. SW notified patient that it is not on file. Cassidy BOWERS
--- NOTE | 2020-01-01 15:05 | CASEMGMT ---
Call received from pt's , who is at [facility] in [place], and states that pt used a Xarelto coupon card in 2014 and pt cannot use the card again. Dr. Narayanan aware and he states that he will switch pt to Eliquis and he was provided with an Eliquis 30 day free trial card at this time. Dr. Narayanan is now placing call to [facility] in [place] to switch med to Eliquis for pt at this time. Tad TERRY CM
--- NOTE | 2020-01-02 09:11 | DS.PCM_ITS ---
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 Work-up in the emergency room included an EKG which showed the patient to be in atrial fibrillation with a rapid ventricular response, there is some ST elevation in leads III and aVF concerning for a STEMI. STEMI alert was called, the case was discussed with cardiology and the patient was taken to the Apartment Manager, he was noted to have 2 out of 3 bypass grafts which were patent, the graft that was not patent was felt to be chronic occlusion, there was evidence of collaterals noted and it was felt by cardiology that the patient's chest pain was likely combination of A. fib with RVR and underlying coronary disease. Patient was admitted to ICU and the patient's medications were adjusted by cardiology, patient converted to normal sinus rhythm, it was felt that the patient had a non-STEMI rather than a STEMI. On 01/01/2020, patient was seen and examined: On examination he appeared in good health and spirits. Vital signs as documented. Skin warm and dry and without overt rashes. Neck without JVD. Lungs clear. Heart exam notable for regular rhythm, normal sounds and absence of murmurs, rubs or gallops. Abdomen unremarkable and without evidence of organomegaly, masses, or abdominal aortic enlargement. Extremities nonedematous. Neuro: Cranial nerves II through XII are grossly intact, no focal motor deficits were noted, sensation to light touch and pinprick is intact. Psych: Patient is alert and oriented x3, he does not appear anxious or depressed On 01/01/2020, patient was seen and examined and felt to be in stable condition for discharge home, initially he was given a prescription for Xarelto along with a free coupon but he was not able to use this as he had been on Xarelto in the past, this was changed to Eliquis and I discussed this with the patient's by phone. Patient was instructed to follow-up with cardiology as an outpatient. - Physical Exam Vitals/I&O's: Vital Signs Temp Pulse Resp BP Pulse Ox 98.3 F 99 16 103/50 L 94 01/01/20 11:45 01/01/20 11:45 01/01/20 11:45 01/01/20 11:45 01/01/20 11:45 Oxygen Flow Rate (L/min) 2 Oxygen Delivery Method Room Air Weight: 80.2 kg Body Mass Index (BMI) 27.7 Intake and Output for Last 24 Hours 12/31/19 01/01/20 01/02/20 23:59 23:59 23:59 Intake Total 1632.25 / 1632.25 120 / 120 Output Total 2275 / 2275 225 / 225 Balance -642.75 / -642.75 -105 / -105 Discharge Activity: Return to Normal Activity Weight Bearing Status: Full weight bearing Home Medications: Medications to take at Discharge Omeprazole [Prilosec] 20 mg PO DAILY 08/21/13 Aspirin [Aspirin, Baby] 81 mg PO DAILY@0800 10/03/15 Levothyroxine [Synthroid] 75 mcg PO DAILY 10/03/15 Multivitamins,Therapeutic [Multivitamin] 1 tab PO DAILY 10/03/15 losartan 50 mg tablet 50 mg PO BID #180 tab 11/08/17 calcium carbonate-vitamin D3 600 mg (1,500 mg)-800 unit tablet 1 tab PO BID tab 11/16/17 diltiazem HCl 240 mg capsule,extended release 24 hr 240 mg PO DAILY cap 11/16/17 fluticasone propionate 50 mcg/actuation nasal spray,suspension 50 mcg INTRANASAL BID PRN 11/16/17 Acetaminophen [Mapap] 500 mg PO Q6H PRN PRN 12/29/19 Rosuvastatin Calcium 5 mg PO DAILY 12/29/19 Isosorbide Mononitrate [Imdur] 30 mg PO DAILY #30 tab 01/01/20 Metoprolol(XL)Succ [Toprol Xl (Beta Jayleen)] 25 mg PO DAILY #30 tab 01/01/20 Nitroglycerin (INPATIENT USE) [Nitrostat] 0.4 mg SUBLINGUAL Q5M PRN #25 01/01/20 Rivaroxaban [Xarelto] 20 mg PO DAILY@1700 #30 tab 01/01/20 Following Prescrptions Were Given to Patient: Isosorbide Mononitrate [Imdur] 30 mg PO DAILY #30 tab Transmission Status: Received by [facility]/pharmacy #[id number] Nitroglycerin (INPATIENT USE) [Nitrostat] 0.4 mg SUBLINGUAL Q5M PRN #25 PRN Reason: Chest Pain Prescription Printed Metoprolol(XL)Succ [Toprol Xl (Beta Jayleen)] 25 mg PO DAILY #30 tab Transmission Status: Received by [facility]/pharmacy #[id number] Rivaroxaban [Xarelto] 20 mg PO DAILY@1700 #30 tab Transmission Status: Received by [facility]/pharmacy #[id number] Primary Care Physician: Juancho Coleman DO [Primary Care Provider] - Please follow up with your Primary Care Physician in: in 2 weeks Please Follow Up With: Tatiana Christian PA When: as directed Please Follow Up With: Juancho Coleman DO Disposition: Home Minutes spent on discharge:: 32 Patient Condition:: Stable Medical Necessity - Tobacco Use Smoking Status: Never smoker Tobacco Use: Non-smoker Meaningful Use Info Meaningful Use Diagnoses (Choose all that apply): AMI - AMI/Post PCI/Angioplasty Aspirin given w/in 24hrs of arrival?: Yes ASA at discharge?: Yes Antiplatelet Therapy at Discharge:: No Reason Antiplatelet Therapy not ordered:: Patient was placed on full anticoagulation along with aspirin Statins at discharge?: Yes Clay/ARB at discharge?: Yes Beta Jayleen at discharge?: Yes Done w/ Acute OK measure.: Yes Documented LVEF (%): 45 Code Visit Inpatient E&M: 55068 Disch Hosp
--- NOTE | 2020-01-02 12:47 | CASEMGMT ---
MARA MORENO DC PHONE CALL DC DATE: 01.01.2020 DC Disposition: Home Diagnosis on Discharge: NSTEMI LACE/STRATA: 09/24 Intro role of CM to patient's . She states pt is doing well, has medications and no further questions. F/U appointments were reviewed. Per , pt will be able to follow up. No questions re: instructions and no care improvement suggestions were given. states care was excellent and she appreciated staff's care of pt. Donna KAY RN AC
== END 2020-01-01 12:40 | disposition home or self-care (01) | DRG 281 ==
LOC: ED 16:10 → ICU 20:58 → PCU 12-30 20:24
PROVIDERS: Admitting Provider Specialist; Emergency Provider Emergency Medicine; PCP Family Medicine; Referring Provider Specialist; Visit Provider Internal Medicine
DX: I21.4 Non-ST elevation (NSTEMI) myocardial infarction (principal); I25.110 Atherosclerotic heart disease of native coronary artery with unstable angina pectoris; I25.700 Atherosclerosis of coronary artery bypass graft(s), unspecified, with unstable angina pectoris; I48.19 Other persistent atrial fibrillation; I95.9 Hypotension, unspecified; I49.5 Sick sinus syndrome; I34.1 Nonrheumatic mitral (valve) prolapse; I71.4 Abdominal aortic aneurysm, without rupture; I10 Essential (primary) hypertension; E78.5 Hyperlipidemia, unspecified; E03.9 Hypothyroidism, unspecified; G47.30 Sleep apnea, unspecified; K21.9 Gastro-esophageal reflux disease without esophagitis; Z79.01 Long term (current) use of anticoagulants; Z79.82 Long term (current) use of aspirin; Z79.899 Other long term (current) drug therapy; Z95.1 Presence of aortocoronary bypass graft
CPT/HCPCS: 80048; 80053; 84484; 85025; 85027; 85610; 85730; 93005; 93459; 93567; 97162; 97802; 99152; 99153; 99285; J7030; Q9967; A4216; C1760; C1769; C1887; C1894; J2405

== ENCOUNTER 2020-01-26 05:11 | Inpatient (IN) | payer MEDICARE, OTHER, SELFPAY ==
[2020-01-17 14:21] VITALS: BMI 28.1
[2020-01-26] VITALS (12 sets, daily range): BP systolic 99–199; BP diastolic 60–113; PULSE 82–101; RESP 15–20; TEMP 36.3–37; O2SAT 82–96; BMI 29.4; BMI 27.6
--- NOTE | 2020-01-26 05:15 | ED.RN ---
CALLED FOR EKG PER RN REQUEST, PULLED OLD EKGS FOR
--- NOTE | 2020-01-26 05:23 | RAD_ITS ---
HISTORY: Chest pain EXAMINATION/TECHNIQUE: XR Chest 1 View: Portable COMPARISON: 06/09/2017 FINDINGS: Chronic elevation of the right hemidiaphragm. Mild cardiomegaly, unchanged. With comparison to prior, increased interstitial markings within the mid and lower lung zones bilaterally. The appearance is nonspecific. No focal infiltrate or significant pleural effusion. No pneumothorax. Previous median sternotomy. RAD/Chest 1 View (Portable) IMPRESSION: Nonspecific interstitial pattern, new compared to previous. Diagnostic considerations would include interstitial edema, progressive interstitial scarring, or possibly infection. at 0619 Reported and signed by: Chalino Messer MD Electronically Signed: Chalino Messer, at 6:18 EST Tel , Service support ,
--- NOTE | 2020-01-26 05:23 | EKG12_ITS ---
Test Reason : CP Blood Pressure : / mmHG Vent. Rate : 098 BPM Atrial Rate : 097 BPM P-R Int : 000 ms QRS Dur : 106 ms QT Int : 388 ms P-R-T Axes : 000 007 058 degrees QTc Int : 495 ms Atrial fibrillation Nonspecific ST abnormality Prolonged QT Abnormal ECG Confirmed by JUANITA GLASGOW, ALFREDO ([id number]), acquisition editor TIARA ANDRES ([id number]) on 01/29/2020 3:34:14 PM Referred By: TALHA Confirmed By:ALFREDO GRANT MD
--- NOTE | 2020-01-26 05:24 | ED.VIS.GEN ---
History of Present Illness Chief Complaint: Chest Pain Informant: Patient Onset: Today Current Severity: - - Resolved Maximum Severity: Moderate Narrative: Patient presents for chest pain. He states he woke up around 230 this morning with chest pain. He took a nitroglycerin and the pain went away so he went back to bed. He woke approximate hour later with recurrent pain. He took a nitroglycerin and pain resolved again and he went back to bed. When he woke the third time with chest pain and required nitroglycerin he decided to call EMS. He had also taken a Tylenol for some right posterior neck pain at the same time. He had mild shortness of breath. states he seemed to break out in a sweat with a second episode of chest pain. EMS gave him 1 nitro and 4 baby aspirin. Patient is pain-free on arrival here. Patient had an NSTEMI in December of this year. He had a heart cath on December 29. He is currently on Eliquis and is followed by Dr. Goodwin. - Past Medical History (1) Non-ST elevated myocardial infarction (non-STEMI) Status: Chronic (2) Abdominal aortic aneurysm, without rupture Status: Chronic (3) Atherosclerosis of coronary artery bypass graft of [place] heart with angina pectoris Status: Chronic (4) Atherosclerotic heart disease [place] coronary artery w/angina pectoris Status: Chronic (5) Essential (primary) hypertension Status: Chronic (6) H/O coronary artery bypass surgery Status: Chronic (7) HLD (hyperlipidemia) Status: Chronic (8) Hypothyroidism Status: Chronic (9) Iron deficiency anemia Status: Chronic (10) A-fib Status: Chronic Past Medical History - Allergies and Home Meds Allergies/Adverse Reactions: Allergies amiodarone Allergy (Verified 01/26/20 05:19) cough hydrochlorothiazide Allergy (Verified 01/26/20 05:19) Unknown rosuvastatin calcium [From Crestor] Allergy (Verified 01/26/20 05:19) Unknown Otriwfu-Cvl-Enz Reductase Inhibitor Allergy (Verified 01/26/20 05:19) Unknown Primary Care Physician: Juancho Coleman DO [Primary Care Provider] - Doctors: Dr. Goodwin Prior records reviewed: Yes Surgical History: cataract, coronary bypass surgery, tonsillectomy, - - Ablation for atrial fibrillation, TURP, arthroscopy left knee Lives: Spouse/ Significant Other Smoking Status: Never smoker - Family History Maternal Family History: Family History (Last Reviewed 01/17/20 @ 15:[address] Anuj Goodwin MD) Father Hypertension HLD (hyperlipidemia) Cancer Mother Hypertension Myocardial infarction, Onset Age: 70 Asthma Heart disease Brother Kidney disease Cancer Sister HLD (hyperlipidemia) Heart disease Hypertension Bleeding disorder Son HLD (hyperlipidemia) Family History: Reports: Heart Disease, Hypertension Paternal Family History: Family History (Last Reviewed 01/17/20 @ 15:[address] Anuj Goodwin MD) Father Hypertension HLD (hyperlipidemia) Cancer Mother Hypertension Myocardial infarction, Onset Age: 70 Asthma Heart disease Brother Kidney disease Cancer Sister HLD (hyperlipidemia) Heart disease Hypertension Bleeding disorder Son HLD (hyperlipidemia) Family History: Reports: Hypertension Sibling Family History: Family History (Last Reviewed 01/17/20 @ 15:[address] Anuj Goodwin MD) Father Hypertension HLD (hyperlipidemia) Cancer Mother Hypertension Myocardial infarction, Onset Age: 70 Asthma Heart disease Brother Kidney disease Cancer Sister HLD (hyperlipidemia) Heart disease Hypertension Bleeding disorder Son HLD (hyperlipidemia) Family History: Reports: Cancer, Hypertension Review of Systems General: Denies: Chills, Fever Eyes: Denies: Visual changes - bilaterally ENT: Denies: Bilateral ear pain Cardiovascular: Reports: Chest pain Respiratory: Reports: Dyspnea. Denies: Cough Gastrointestinal: Denies: Abdominal pain, Nausea, Vomiting, Diarrhea Musculoskeletal: Reports: Neck pain. Denies: Back pain, Extremity Pain Skin: Denies: Rash Neurological: Denies: Headache Hematologic: Denies: Easy bruising, Easy bleeding Allergy: Denies: Uticaria Physical Exam Vital Signs/Narrative: Vital Signs Temp Pulse Resp BP Pulse Ox 01/26/20 05:12 98.2 F 83 18 138/92 H 82 Inital Vital Signs reviewed: Yes General: Well nourished, Well developed Head: Normocephalic ENT: Moist mucous membranes Neck: Supple Cardiovascular: Irregular Respiratory: No distress, CTA bilaterally Abdomen: Soft, Nontender, Normal bowel sounds Extremities: Nontender Skin: Normal color Neurological: Alert, Oriented x3 Psychological: Normal affect Diagnostic/Tx/Re-eval Impressions Chest X-Ray 01/26/20 05:23 IMPRESSION: Nonspecific interstitial pattern, new compared to previous. Diagnostic considerations would include interstitial edema, progressive interstitial scarring, or possibly infection. at 0619 Reported and signed by: Chalino Messer MD Electronically Signed: Chalino Messer, at 6:18 EST Tel , Service support , 01/26/20 05:23 Chest 1 View (Portable) [RAD] Stat Laboratory Results 01/26/20 01/26/20 01/26/20 05:35 05:35 05:35 WBC 8.3 RBC 4.00 L Hgb 12.3 L Hct 37.1 L MCV 92.8 MCH 30.8 MCHC 33.2 RDW Std Deviation 47.2 H RDW Coeff of Rika 13.9 Plt Count 196 MPV 9.3 Immature Gran % (Auto) 0.200 Neut % (Auto) 62.1 Lymph % (Auto) 22.2 [place] % (Auto) 9.5 Eos % (Auto) 5.3 H Baso % (Auto) 0.7 Absolute Neuts (auto) 5.2 Absolute Lymphs (auto) 1.85 Nucleated RBC % 0 Sodium 138 Potassium 4.1 Chloride 109 H Carbon Dioxide 23.0 Anion Gap 6 BUN 30 H Creatinine 1.03 Estim Creat Clear Calc 52.59 Est GFR (MDRD) Af Amer 89 Est GFR (MDRD) Non-Af 74 BUN/Creatinine Ratio 29.1 H Glucose 111 H Calcium 9.0 Troponin I < 0.015 B-Natriuretic Peptide 436.4 H - EKG Initial EKG Interpretation: Atrial Fibrillation - A. fib at 98 bpm. No acute ischemia. Unchanged when compared to prior study. - Medical Decision Making Patient been given aspirin and nitro with EMS. Patient has remained chest pain-free while in the emergency room. Chest x-ray does appear congested and wet with cephalization. His BNP is up. His heart cath from December 29 of this year was reviewed. His EF was 40 to 45%. Patient is given a dose of Lasix. Patient was initially hypoxic at 82% on room air on arrival. O2 sats have been in the high 90s on 5 L nasal cannula. I currently have this turned down to 2 L nasal cannula. In review of recent cardiology notes, there was concern that if the patient continued to require nitroglycerin at home they may consider adding Ranexa. At this time patient is requiring O2 and will require admission. Medication adjustments can be made at that time. I will speak with the hospitalist. M: When the nurse went to give the patient Lasix, he stated that his chest pain was starting to return. Repeat EKG was obtained and unchanged. He was given 1 sublingual nitroglycerin and pain is improving at this time. Patient did have to be bumped back up to 4 L nasal cannula for oxygenation. I did speak with Dr. Goodwin and relayed the patient's current symptoms and findings. Patient is currently due for his morning diltiazem, Toprol, and Imdur. These will be given to him at this time. ED Disposition - Plan for ED Patient: Disposition: Acute Care Hospital [facility] Diagnosis: CHF (congestive heart failure), Chest pain Referrals: Juancho Coleman DO [Primary Care Provider] -
[2020-01-26] MEDS: 0.9% Normal Saline 1,000 ML 15 ML IV (05:39)
[2020-01-26 05:46] LABS: Absolute Lymphocyte Count 1.85 X10^3/uL (0.83-4.51); Absolute Neutrophil Count 5.2 X10^3/uL (2.0-7.7); Basophil# 0.06 X10^3/uL; Basophil% 0.7 % (0-1); Eosinophil# 0.44 X10^3/uL; Eosinophils% 5.3 % (0-5); Hematocrit 37.1 % (40-54); Hemoglobin 12.3 g/dL (13.0-16.5); Lymphocyte # 1.85 X10^3/ul (4.0); Lymphocyte % 22.2 % (19-41); Mean Corp Hgb Conc 33.2 g/dL (32-36); Mean Corpuscular Hgb 30.8 pg (27.0-32.0); Mean Corpuscular Volume 92.8 fL (80-94); Mean Platelet Vol. 9.3 fl (6.2-12.0); Monocyte# 0.79 X10^3/uL; Monocyte% 9.5 % (0-10); NRBC Flagged by Analyzer 0 % (0-5); Neutrophil # 5.17 X10^3/uL (2.7-7.7); Neutrophil % 62.1 % (47-70); Platelet Count 196 K/mm3 (150-450); RBC Distribution Width CV 13.9 % (11.6-14.6); RBC Distribution Width SD 47.2 fl (35.1-43.9); White Blood Count 8.3 K/mm3 (4.4-11.0)
[2020-01-26 06:03] LABS: BNP,B-Type NATRIURETIC PEPTIDE 436.4 pg/mL (0-100)
[2020-01-26 06:04] LABS: Anion Gap 6 (5-15); BUN 30 mg/dL (7-18); BUN/Creat Ratio 29.1 RATIO (10-20); Chloride 109 mmol/L (98-107); Creatinine, Serum 1.03 mg/dL (0.70-1.30); EST Glomerular Filtration Rate 74 mL/min (>60); Est Glom Filt Rate - Afr Amer 89 mL/min (>60); Estimated Creatinine Clearance 52.59 ml/min; Glucose 111 mg/dL (74-106); Potassium 4.1 mmol/L (3.5-5.1); Sodium Level 138 mmol/L (136-145)
[2020-01-26] MEDS: Furosemide 40 MG/4 ML Vial IV (06:34)
--- NOTE | 2020-01-26 06:38 | EKG12_ITS ---
Test Reason : CP Blood Pressure : / mmHG Vent. Rate : 102 BPM Atrial Rate : 102 BPM P-R Int : 000 ms QRS Dur : 102 ms QT Int : 346 ms P-R-T Axes : 000 008 134 degrees QTc Int : 450 ms Atrial fibrillation with rapid ventricular response ST & T wave abnormality, consider lateral ischemia Abnormal ECG Confirmed by JUANITA GLASGOW, ALFREDO ([id number]), purchasing expeditor TIARA ANDRES ([id number]) on 01/29/2020 3:34:29 PM Referred By: TALHA Confirmed By:ALFREDO GRANT MD
[2020-01-26] MEDS: Nitroglycerin SL (ED/IMG/CATH) 0.4 MG TABLET SUBLINGUAL (06:41)
--- NOTE | 2020-01-26 07:18 | NURSING ---
114 S[place] CHF, CP, HYPOXIA
--- NOTE | 2020-01-26 07:45 | HP.PCM_ITS ---
History of Present Illness Date of Admission: 01/26/20 Chief Complaint: Chest pain The patient is a 79 year old M presents with chest pain. Patient woke this morning with some chest pain across his chest took nitroglycerin got better went back to bed woke up again with chest pain, took nitroglycerin, got better and then it occurred third time which at that point time he called EMS. Patient stated that he had some shortness of breath as well with this and did have some mild palpitations but not to the extent that he typically gets with atrial fibrillation with RVR. Patient presented to the emergency room was found to be in atrial fibrillation with RVR, received his home dose of diltiazem his heart rate did improve, did receive IV Lasix for what appeared to be heart failure on his chest x-ray and I received nitro which did alleviate his chest pain. He is currently chest pain-free at this time. Chest pain feels similar to when he has had cardiac issues. Patient presented with concern for ST elevation myocardial infarction but was found to have just a chronically occluded vein graft last month. Patient was hypoxic at 80%. Was put on high flow oxygen up to 5 L. [] Past Medical History Past Medical History (Chronic Problems): Chronic Problems (Last Reviewed 01/17/20 @ 15:[address] 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, 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 DDD (degenerative disc disease), lumbar M51.36 GERD (gastroesophageal reflux disease) K21.9 Iatrogenic hypothyroidism E03.2 Sleep apnea G47.30 Cardiac arrhythmia (Inactive) I49.9 Carotid bruit (Inactive) R09.89 Chronic tachycardia (Inactive) R00.0 Nonrheumatic mitral (valve) prolapse (Inactive) I34.1 Persistent atrial fibrillation I48.1 Allergies amiodarone Allergy (Verified 01/26/20 05:19) cough hydrochlorothiazide Allergy (Verified 01/26/20 05:19) Unknown rosuvastatin calcium [From Crestor] Allergy (Verified 01/26/20 05:19) Unknown Upgthap-Ziq-Yqp Reductase Inhibitor Allergy (Verified 01/26/20 05:19) Unknown Home Medications: Ambulatory Orders Medication Instructions Recorded Omeprazole [Prilosec] 20 mg PO DAILY 08/21/13 Aspirin [Aspirin, Baby] 81 mg PO DAILY@0800 10/03/15 Multivitamins,Therapeutic 1 tab PO DAILY 10/03/15 [Multivitamin] losartan 50 mg tablet 50 mg PO BID #180 tab 11/08/17 diltiazem HCl 240 mg 240 mg PO DAILY cap 11/16/17 capsule,extended release 24 hr fluticasone propionate 50 50 mcg INTRANASAL BID PRN 11/16/17 mcg/actuation nasal spray,suspension Acetaminophen [Mapap] 500 mg PO Q6H PRN PRN 12/29/19 Isosorbide Mononitrate [Imdur] 30 mg PO DAILY #30 tab 01/01/20 apixaban 5 mg tablet 5 mg PO BID 01/17/20 calcium carbonate-vitamin D3 600 1 tab PO DAILY tab 01/17/20 mg (1,500 mg)-800 unit tablet levothyroxine 75 mcg tablet 75 mcg PO DAILY 01/17/20 rosuvastatin 10 mg tablet 10 mg PO DAILY 01/17/20 nitroglycerin 0.4 mg sublingual 0.4 mg SUBLINGUAL Q5M PRN #25 tab 01/25/20 tablet Metoprolol(XL)Succ [Toprol Xl 25 mg PO DAILY 01/26/20 (Beta Jayleen)] Surgical History: Surgical History (Last Reviewed 01/26/20 @ 07:[address] Segun Ring DO) H/O coronary artery bypass surgery (Chronic) Z95.1 History of meniscectomy of left knee Onset Date: 10/26/12 Z98.890 History of left heart catheterization Onset Date: 12/29/19 Z98.890 10/1998 and 12/29/19 History of radiofrequency ablation procedure for cardiac arrhythmia Z98.890 Surgical History: cataract, coronary bypass surgery, tonsillectomy, - - Ablation for atrial fibrillation, TURP, arthroscopy left knee Psychiatric History: No pertinent psych hx Lives: Spouse/ Significant Other Smoking Status: Never smoker - *Family History Maternal Family History: Family History (Last Reviewed 01/26/20 @ 07:[address] Segun Ring DO) Father Hypertension HLD (hyperlipidemia) Cancer Mother Hypertension Myocardial infarction, Onset Age: 70 Asthma Heart disease Brother Kidney disease Cancer Sister HLD (hyperlipidemia) Heart disease Hypertension Bleeding disorder Son HLD (hyperlipidemia) History Items: Heart Disease, Hypertension Paternal Family History: Family History (Last Reviewed 01/26/20 @ 07:[address] Segun Ring DO) Father Hypertension HLD (hyperlipidemia) Cancer Mother Hypertension Myocardial infarction, Onset Age: 70 Asthma Heart disease Brother Kidney disease Cancer Sister HLD (hyperlipidemia) Heart disease Hypertension Bleeding disorder Son HLD (hyperlipidemia) History Items: Hypertension Sibling Family History: Family History (Last Reviewed 01/26/20 @ 07:[address] Segun Ring DO) Father Hypertension HLD (hyperlipidemia) Cancer Mother Hypertension Myocardial infarction, Onset Age: 70 Asthma Heart disease Brother Kidney disease Cancer Sister HLD (hyperlipidemia) Heart disease Hypertension Bleeding disorder Son HLD (hyperlipidemia) History Items: Cancer, Hypertension Review of Systems Constitutional: Denies: Anorexia, Chills, Fever, Night Sweats Eyes: Denies: Blurred vision, Double vision HEENT: Denies: Head Aches, Sinus Congestion, Sinus Drainage Cardiovascular: Reports: Chest Pain, Palpitations. Denies: Edema Respiratory: Reports: Shortness of Breath. Denies: Cough, Sputum production Gastrointestinal: Reports: Nausea. Denies: Abdominal Pain, Vomiting Genitourinary: Denies: Dysuria, Hematuria Musculoskeletal: Denies: Joint Pain, Joint Tenderness Skin: Denies: Rash, Wounds Neurological: Denies: Numbness, Tingling, Focal weakness Psychiatric: Denies: Anxiety, Depression Hematologic/ Lymphatic: Denies: Easy Bruising, Easy Bleeding, Hx of blood clot Comment: All review of systems were negative except as mentioned above in the history of present illness and the other review of systems. VTE Information - Inpt Only VTE Present on Admission: No VTE Mechan Device Prophylaxis: None VTE Pharm Prophylaxis ordered?: Yes Patient Problems: Active and Suspected Problems (Last Reviewed 01/17/20 @ 15:[address] Anuj Goodwin MD) CHF (congestive heart failure) (Acute) Chest pain (Acute) - Physical Exam Vitals/I&O's: Vital Signs Temp Pulse Resp BP Pulse Ox 36.8 C 101 H 20 H 191/113 H 90 01/26/20 05:12 01/26/20 06:47 01/26/20 06:47 01/26/20 06:41 01/26/20 06:47 Oxygen Flow Rate (L/min) 2 Oxygen Delivery Method Nasal Cannula Weight: 85.2 kg Body Mass Index (BMI) 29.4 Intake and Output for Last 24 Hours 01/24/20 01/25/20 01/26/20 23:59 23:59 23:59 Intake Total 13.75 / 13.75 Balance 13.75 / 13.75 General: Alert, Cooperative, No apparent distress HEENT: Atraumatic, Normocephalic Oral: Moist Mucosa, No Gingival or Mucosal Lesions/ Ulcerations Neck: No Nodes, Trachea Midline Lungs: Normal air movement, - - Bilateral fine crackles Cardiovascular: Regular rate, Regular Rhythm, Normal S1, Normal S2, No murmurs Abdomen: Bowel Sounds Present, Soft, Non Tender, Non-Distended, No Hepato- splenomegaly Extremities: No edema, No Calf Tenderness Skin: No rashes, No breakdown Musculoskeletal: No Tenderness to Palpation of Joints or Extremities, No Muscle Wasting Neurological: Muscle tone normal, - - No clonus Psych/Mental Status: Normal Affect, Appropriate Laboratory Results 01/26/20 05:35: WBC 8.3, RBC 4.00 L, Hgb 12.3 L, Hct 37.1 L, MCV 92.8, MCH 30.8, MCHC 33.2, RDW Std Deviation 47.2 H, RDW Coeff of [place]ika 13.9, Plt Count 196, MPV 9.3, Immature Gran % (Auto) 0.200, Neut % (Auto) 62.1, Lymph % (Auto) 22.2, [place] % (Auto) 9.5, Eos % (Auto) 5.3 H, Baso % (Auto) 0.7, Absolute Neuts (auto) 5.2, Absolute Lymphs (auto) 1.85, Nucleated RBC % 0 01/26/20 05:35: Sodium 138, Potassium 4.1, Chloride 109 H, Carbon Dioxide 23.0, Anion Gap 6, BUN 30 H, Creatinine 1.03, Estim Creat Clear Calc 52.59, Est GFR (MDRD) Af Amer 89, Est GFR (MDRD) Non-Af 74, BUN/Creatinine Ratio 29.1 H, Glucose 111 H, Calcium 9.0, Troponin I < 0.015 01/26/20 05:35: B-Natriuretic Peptide 436.4 H Chest x-ray personally reviewed and showed bilateral pulmonary infiltrates. EKG was reviewed and showed atrial fibrillation with RVR with no acute changes. Assessment/Plan All Active Problems (Last Reviewed 01/17/20 @ 15:[address] Anuj Goodwin MD) CHF (congestive heart failure) (Acute) Chest pain (Acute) Atrial fibrillation with rapid ventricular response (Resolved) Acute ST elevation myocardial infarction (STEMI) (Ruled-out) 1. Acute hypoxic respiratory failure * Secondary to CHF * Diurese * Wean oxygen as tolerated 2. Acute heart failure with reduced ejection fraction * EF of 40-45% from left heart catheterization 29 December * Diuresis * Check echocardiogram * Continue with losartan and metoprolol succinate 3. Atrial fibrillation with RVR * Present on admission but has since improved * Still in atrial fibrillation but rate controlled * Anticoagulated on apixaban * Continue with diltiazem and metoprolol succinate 4. Unstable angina * From left heart catheterization on December 29, patient had left main 50 to 60% stenosis distally, 100% stenosis of the mid LAD, 70% stenosis of the ostial portion and a 80% stenosis of the proximal portion, 90% stenosis of the circumflex artery, mid RCA is occluded with collaterals from the left system, grafts from the [place] to the mid LAD is patent, saphenous vein graft to the ramus is patent, saphenous vein graft to the RCA is totally occluded and the vessel was unable to be crossed with heart catheterization. * Cycle troponins * May be associated with a CHF or atrial fibrillation with RVR * Cardiology on consultation 5. VTE prophylaxis: Low risk as patient is already anticoagulated 6. Advanced care planning: Discussed with the patient and his . Patient wishes to be full CODE STATUS at this time. Inpatient E&M: 80924 Init Hosp L3
[2020-01-26] MEDS: Metoprolol(XL)Succ 25 MG Tablet PO (07:49)
[2020-01-26] MEDS: Isosorbide Mononitrate 30 MG Tablet PO (07:49)
[2020-01-26] MEDS: dilTIAZem CD 240 MG Capsule PO (07:53)
--- NOTE | 2020-01-26 08:05 | ECHOCS_ITS ---
Reason For Study: CHF Procedure This was a 2D Doppler, Color Flow transthoracic echocardiogram. Contrast injection was performed. Exam performed portable in patient room. Left Ventricle Normal LV size. Left ventricular systolic function is normal. The estimated ejection fraction is 55 %. Stage 2 diastolic dysfunction. No regional wall motion abnormalities noted. Right Ventricle Normal RV size. Normal systolic function. Atria The left atrium is mildly enlarged. Normal right atrium. Mitral Valve Normal mitral valve. Mild (1+) eccentric mitral valve insufficiency. Tricuspid Valve Normal tricuspid valve. Mild (1+) tricuspid valve insufficiency. Pulmonary artery systolic pressure is 34 mmHg. Aortic Valve Trisinus/trileaflet aortic valve. Mild (1+) aortic valve insufficiency. Pulmonic Valve The pulmonic valve is not well visualized. Great Vessels Normal aortic root. The pulmonary artery is normal size. Normal inferior vena cava. Pericardium/Pleural No pericardial effusion. Medication Diluted definity 3ml given slow IV push to enhance endocardial definition. MMode/2D Measurements & Calculations LVIDd: 5.5 cm IVSd: 1.2 cm Ao root diam: 3.8 cm LVIDs: 5.3 cm LVPWd: 0.65 cm RVDd: 3.7 cm FS: 3.6 % LAV(MOD-bp): 62.6 ml LVAd ap4: 36.3 cm2 SV(MOD-sp4): 44.9 ml LAV(MOD-bp) Indexed: 31.8 ml/m2 EDV(MOD-sp4): 137.0 ml LAV(MOD-sp2): 63.2 ml EDV(sp4-el): 142.7 ml LAV(MOD-sp4): 60.8 ml LVAs ap4: 27.1 cm2 ESV(MOD-sp4): 92.1 ml ESV(sp4-el): 92.7 ml EF(MOD-sp4): 32.8 % EF(sp4-el): 35.0 % SV(sp4-el): 50.0 ml LA A4 area: 21.5 cm2 LA dimension(2D): 5.2 cm RA A4 area: 12.1 cm2 Doppler Measurements & Calculations MV E max anurag: 77.5 cm/sec Lat Peak E' Anurag: 12.3 cm/sec Med Peak E' Anurag: 7.9 cm/sec MV A max anurag: 51.8 cm/sec E/E' lat: 6.3 E/E' med: 9.8 MV E/A: 1.5 Ao V2 max: 110.0 cm/sec AI max anurag: 441.1 cm/sec LV V1 max: 88.9 cm/sec Ao max P.9 mmHg AI max P.8 mmHg LV V1 max P.2 mmHg Ao V2 mean: 84.4 cm/sec Ao mean P.0 mmHg AI dec slope: 251.2 cm/sec2 Ao V2 VTI: 20.4 cm AI P1/2t: 514.3 msec PA V2 max: 100.2 cm/sec PI end-d anurag: 150.3 cm/sec TR max anurag: 273.3 cm/sec TR max P.9 mmHg Interpretation Summary Normal LV size. Left ventricular systolic function is normal. The estimated ejection fraction is 55 %. Mild (1+) aortic valve insufficiency. Stage 2 diastolic dysfunction. Pulmonary artery systolic pressure is 34 mmHg. Contrast injection was performed. Ordering Physician: Segun Ring Referring Physician: Juancho Coleman Performed By: Karen Armijo, RDCS, RVT
--- NOTE | 2020-01-26 09:00 | CASEMGMT ---
Per Dr. Ring, pt/family would like pt transferred to [facility] at this time and Dr. Ring would like to be able to tell pt/family the ambulance cost at this time as this would be a lateral transfer. Call to [facility] and they states that the cost would be about $1206.50 and that would need paid by credit card prior to transport. Dr. Ring is aware and states he will notify pt/family if [facility] accepts pt. Dr. Ring was on phone with [facility] transfer line and pt's family member came out to PCU desk and stated that they no longer want pt transferred at this time. Kimmie PCU charge aware, voices understanding. Tad TERRY CM
[2020-01-26] MEDS: Losartan Potassium 50 MG Tablet PO ×2 (10:54→21:00)
[2020-01-26] MEDS: Pantoprazole Sodium 20 MG Tablet PO (10:54)
[2020-01-26] MEDS: APIXABAN 5 MG TABLET PO ×2 (10:54→21:00)
--- NOTE | 2020-01-26 12:12 | CASEMGMT ---
MARA MORENO Re-admission assessment: Previous admission: 12/29/19 through 01/01/20 w/NSTEMI. Had PCI done. Discharged on Xarelto but this was switched to Eliquis d/t cost of med/has used Xarelto savings card in the past. Pt discharged home w/family support. F/U appts were scheduled for pt prior to discharge with PCP and Tatiana Christian @ [facility]. MARA CM to room to meet with patient/family to discuss any discharge planning needs. MARA MORENO introduced self and role at [facility]. Pt resting in bed in no distress at this time. and daughter at bedside. Pt/ state things have been going well for pt at home after last admission and they have no discharge planning needs. Per , pt did f/u @ [facility] and saw Dr Goodwin. There was a f/u appt made for February. They cancelled the appt with PCP d/t it being flu season. No f/u appt with PCP was made. Per pt/, CHF diagnoses is new and had several questions re: CHF. She states they have a scale at home and pt/ already weigh and record their weight daily. Discussed the importance of continuing this and notifying MD with significant weight changes. Also discussed s/sx's to watch for. They were made aware they would be given further teaching/handouts on CHF and weight change guidelines of when to notify MD. Pt does not have home O2. Given list of local DME companies and 1st choice is [employer]. Pt/ wishes for pt to return home and states has no concerns with going home at time of discharge. CM to follow for home oxygen needs and any further discharge planning/needs. Pt/ voice no further concerns/needs at this time. Advised them to ask for CM if any further questions/concerns/needs arise. They voice understanding. Tatiana, pt's primary RN on PCU, made aware CHF is new diagnoses for pt and pt/family have questions/would like further teaching. She voices understanding. PLAN: Home w/family support and discharge plans in place. May need Ambulatory oxygen testing prior to discharge. Pt does not have chronic respiratory condition. If pt qualifies for O2, [facility] will not cover cost of home oxygen. Pt/family have been made aware of this and made aware [id number] cost of oxygen is approx $156. 1st preference of DME company is [employer]. Will need further/on-going teaching on CHF. Merlene BSN RN CM
--- NOTE | 2020-01-26 14:05 | CON.PCM_ITS ---
Problem List (1) Chest pain Status: Acute Reason for Consult Date of Consultation: 01/26/20 Reason for Consultation: Chest pain History of Present Illness: The patient is a 79 year old M presents with chest pain. Patient woke this morning with some chest pain across his chest took nitroglycerin got better went back to bed woke up again with chest pain, took nitroglycerin, got better and then it occurred third time which at that point time he called EMS. Patient stated that he had some shortness of breath as well with this and did have some mild palpitations but not to the extent that he typically gets with atrial fibrillation with RVR. Patient presented to the emergency room was found to be in atrial fibrillation with slightly elevated heart rate, received his home dose of diltiazem his heart rate did improve, did receive IV Lasix for what appeared to be heart failure on his chest x-ray and I received nitro which did alleviate his chest pain. He is currently chest pain-free at this time. Chest pain feels similar to when he has had cardiac issues. Patient presented with concern for ST elevation myocardial infarction but was found to have just a chronically occluded vein graft last month. Patient was hypoxic at 80%. Was put on high flow oxygen up to 5 L. Since presentation patient has improved and has not had any further chest pain. He does not have any shortness of breath. His troponin has gone up slightly to 0.058 and then 0.09. Review of systems: All systems reviewed. All else is negative except that in the HPI. Past Medical History Allergies/Adverse Reactions: Allergies amiodarone Allergy (Verified 01/26/20 05:19) cough hydrochlorothiazide Allergy (Verified 01/26/20 05:19) Unknown rosuvastatin calcium [From Crestor] Allergy (Verified 01/26/20 05:19) Unknown Omndtfe-Upr-Wpw Reductase Inhibitor Allergy (Verified 01/26/20 05:19) Unknown Home Medications: Ambulatory Orders Medication Instructions Recorded Omeprazole [Prilosec] 20 mg PO DAILY 08/21/13 Aspirin [Aspirin, Baby] 81 mg PO DAILY@0800 10/03/15 Multivitamins,Therapeutic 1 tab PO DAILY 10/03/15 [Multivitamin] losartan 50 mg tablet 50 mg PO BID #180 tab 11/08/17 diltiazem HCl 240 mg 240 mg PO DAILY cap 11/16/17 capsule,extended release 24 hr fluticasone propionate 50 50 mcg INTRANASAL BID PRN 11/16/17 mcg/actuation nasal spray,suspension Acetaminophen [Mapap] 500 mg PO Q6H PRN PRN 12/29/19 Isosorbide Mononitrate [Imdur] 30 mg PO DAILY #30 tab 01/01/20 apixaban 5 mg tablet 5 mg PO BID 01/17/20 calcium carbonate-vitamin D3 600 1 tab PO DAILY tab 01/17/20 mg (1,500 mg)-800 unit tablet levothyroxine 75 mcg tablet 75 mcg PO DAILY 01/17/20 rosuvastatin 10 mg tablet 10 mg PO DAILY 01/17/20 nitroglycerin 0.4 mg sublingual 0.4 mg SUBLINGUAL Q5M PRN #25 tab 01/25/20 tablet Metoprolol(XL)Succ [Toprol Xl 25 mg PO DAILY 01/26/20 (Beta Jayleen)] Past Medical History (Chronic Problems): Chronic Problems (Last Reviewed 01/26/20 @ 07:[address] 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 Segun Ring DO) Father Hypertension HLD (hyperlipidemia) Cancer Mother Hypertension Myocardial infarction, Onset Age: 70 Asthma Heart disease Brother Kidney disease Cancer Sister HLD (hyperlipidemia) Heart disease Hypertension Bleeding disorder Son HLD (hyperlipidemia) History Items: Heart Disease, Hypertension Paternal Family History: Family History (Last Reviewed 01/26/20 @ 07:[address] Segun Ring DO) Father Hypertension HLD (hyperlipidemia) Cancer Mother Hypertension Myocardial infarction, Onset Age: 70 Asthma Heart disease Brother Kidney disease Cancer Sister HLD (hyperlipidemia) Heart disease Hypertension Bleeding disorder Son HLD (hyperlipidemia) History Items: Hypertension Sibling Family History: Family History (Last Reviewed 01/26/20 @ 07:[address] Segun Ring DO) Father Hypertension HLD (hyperlipidemia) Cancer Mother Hypertension Myocardial infarction, Onset Age: 70 Asthma Heart disease Brother Kidney disease Cancer Sister HLD (hyperlipidemia) Heart disease Hypertension Bleeding disorder Son HLD (hyperlipidemia) History Items: Cancer, Hypertension Lives: Spouse/ Significant Other Smoking Status: Never smoker Objective: Vital Signs Temp Pulse Resp BP Pulse Ox 98.2 F 91 15 113/70 95 01/26/20 10:33 01/26/20 10:58 01/26/20 10:33 01/26/20 10:33 01/26/20 11:00 Oxygen Flow Rate (L/min) 2 Oxygen Delivery Method Nasal Cannula Weight: 176 lb 2.389 oz Body Mass Index (BMI) 27.6 Intake and Output for Last 24 Hours 01/24/20 01/25/20 01/26/20 23:59 23:59 23:59 Intake Total 253.75 / 253.75 Output Total 1300 / 1300 Balance -1046.25 / -1046.25 General: Awake, Alert, Oriented x 3 HEENT: Atraumatic Oral: Moist Mucosa Neck: Supple Lungs: Clear to auscultation Cardiovascular: Irregular Rhythm Abdomen: Soft Extremities: No edema Skin: No Rashes Psych/Mental Status: Appropriate 01/26/20 05:35: WBC 8.3, RBC 4.00 L, Hgb 12.3 L, Hct 37.1 L, MCV 92.8, MCH 30.8, MCHC 33.2, Plt Count 196, MPV 9.3, Immature Gran % (Auto) 0.200, Neut % (Auto) 62.1, Lymph % (Auto) 22.2, [place] % (Auto) 9.5, Eos % (Auto) 5.3 H, Baso % (Auto) 0.7, Absolute Neuts (auto) 5.2, Nucleated RBC % 0 01/26/20 05:35: Sodium 138, Potassium 4.1, Chloride 109 H, Carbon Dioxide 23.0, Anion Gap 6, BUN 30 H, Creatinine 1.03, Est GFR (MDRD) Af Amer 89, Est GFR (MDRD) Non-Af 74, BUN/Creatinine Ratio 29.1 H, Glucose 111 H, Calcium 9.0, Troponin I < 0.015 01/26/20 05:35: B-Natriuretic Peptide 436.4 H 01/26/20 09:16: Troponin I 0.058 H 01/26/20 12:54: Troponin I 0.097 H Rhythm: EKG: ECHO: Stress Test: Cardiac Cath: PCI: CT Surgery: Holter monitor: EPS: PPM: CXR: Chest CT Scan: Assessment/Plan 1. Chest pain: Patient does have underlying coronary artery disease that is being treated medically. In addition to the Imdur I would recommend adding Ranexa 500 mg p.o. twice daily. Continue his beta-jayleen at current dose. If his heart rate goes up then we may have to go up on the beta-jayleen. Another possibility is that this chest pain is GI in etiology. Patient states that recently he went to [employer] and was walking a fair amount and did not have any discomfort. In addition to adding Ranexa I think that patient would probably benefit from GI work-up as an outpatient. 2. Congestive heart failure: Patient's repeat 2D echo revealed improvement in his EF which is currently normal. His BNP was elevated and patient was hypoxic on presentation. He has done well with Lasix. I think it will be reasonable to keep him on a low-dose Lasix. 3. A. fib: Continue present management. If required we can go up on the metoprolol.
[2020-01-26] MEDS: Acetaminophen 325 MG Tablet 650 MG PO (17:38)
[2020-01-26] MEDS: Ranolazine 500 MG Tablet PO (21:00)
[2020-01-27] VITALS (8 sets, daily range): BP systolic 110–132; BP diastolic 62–87; PULSE 78–88; RESP 15–18; TEMP 36.6–36.8; O2SAT 93–97
[2020-01-27] MEDS: Levothyroxine 75 MCG Tablet PO (05:51)
--- NOTE | 2020-01-27 08:46 | DCINST_ITS ---
- Discharge Diagnoses Current Active Problems: Current Active and Chronic Problems (Last Reviewed 01/26/20 @ 07:[address] Segun Ring, DO) CHF (congestive heart failure) (Acute) Chest pain (Acute) You will use the following diet at home:: Cardiac, Fluid restricted (specify 2000 mls, 1500 mls) - 1500 ml/day Your food should be the consistency of: Regular Your liquids should be the consistency of: Regular/Thin Call your doctor if you observe: Shortness of breath, Chest pain Allergies/Adverse Reactions: Allergies amiodarone Allergy (Verified 01/26/20 05:19) cough hydrochlorothiazide Allergy (Verified 01/26/20 05:19) Unknown rosuvastatin calcium [From Crestor] Allergy (Verified 01/26/20 05:19) Unknown Lqohueo-Xsd-Dtb Reductase Inhibitor Allergy (Verified 01/26/20 05:19) Unknown Medications to take at Discharge RX: Omeprazole [Prilosec] 20 mg PO DAILY 08/21/13 RX: Aspirin [Aspirin, Baby] 81 mg PO DAILY@0800 10/03/15 RX: Multivitamins,Therapeutic [Multivitamin] 1 tab PO DAILY 10/03/15 losartan 50 mg tablet 50 mg PO BID #180 tab 11/08/17 diltiazem HCl 240 mg capsule,extended release 24 hr 240 mg PO DAILY cap 11/16/17 fluticasone propionate 50 mcg/actuation nasal spray,suspension 50 mcg INTRANASAL BID PRN 11/16/17 RX: Acetaminophen [Mapap] 500 mg PO Q6H PRN PRN 12/29/19 RX: Isosorbide Mononitrate [Imdur] 30 mg PO DAILY #30 tab 01/01/20 apixaban 5 mg tablet 5 mg PO BID 01/17/20 calcium carbonate-vitamin D3 600 mg (1,500 mg)-800 unit tablet 1 tab PO DAILY tab 01/17/20 levothyroxine 75 mcg tablet 75 mcg PO DAILY 01/17/20 rosuvastatin 10 mg tablet 10 mg PO DAILY 01/17/20 nitroglycerin 0.4 mg sublingual tablet 0.4 mg SUBLINGUAL Q5M PRN #25 tab 01/25/20 RX: Metoprolol(XL)Succ [Toprol Xl (Beta Jayleen)] 25 mg PO DAILY 01/26/20 Potassium Chloride [K-Dur] 10 meq PO DAILY #30 tab 01/27/20 RX: Furosemide [Lasix] 40 mg PO DAILY #30 tab 01/27/20 RX: Ranolazine [Ranexa] 500 mg PO BID #60 tab 01/27/20 The following prescriptions were given: Potassium Chloride [K-Dur] 10 meq PO DAILY #30 tab Transmission Status: Pending to [id number] RX: Furosemide [Lasix] 40 mg PO DAILY #30 tab Transmission Status: Pending to [id number] RX: Ranolazine [Ranexa] 500 mg PO BID #60 tab Transmission Status: Pending to [id number] Primary Care Physician: Juancho Coleman DO [Primary Care Provider] - Within 2 Weeks Test Results: Test results from this visit will be discussed in further detail at your follow- up appointment, if applicable. Please Follow Up With: [facility] cardiology When: next month, already scheduled Please Follow Up With: Daniel Justice MD When: 1-2 months Proposed Discharge Date: 01/27/20
--- NOTE | 2020-01-27 08:48 | DS.PCM_ITS ---
Discharge Date and Diagnosis - Problem List Patient Problems: Active and Suspected Problems (Last Reviewed 01/26/20 @ 07:[address] Segun Ring DO) CHF (congestive heart failure) (Acute) Chest pain (Acute) Date of Admission: 01/26/20 Date of Discharge: 01/27/20 - Primary Discharge Diagnosis Active and Suspected Problems (Last Reviewed 01/26/20 @ 07:[address] Segun Ring DO) CHF (congestive heart failure) (Acute) Chest pain (Acute) - Secondary Discharge Diagnosis Chronic Problems (Last Reviewed 01/26/20 @ 07:[address] 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 Diagnostic considerations would include interstitial edema, progressive interstitial scarring, or possibly infection. at 0619 Reported and signed by: Chalino Messer MD Electronically Signed: Chalino Messer, at 6:18 EST Tel , Service support , Operations: None Procedures: 2-D Echocardiogram - Normal LV size. Left ventricular systolic function is normal. The estimated ejection fraction is 55 %. Mild (1+) aortic valve insufficiency. Stage 2 diastolic dysfunction. Pulmonary artery systolic pressure is 34 mmHg. Contrast injection was performed. Summary of Care Provided: The patient is a 79 year old M with chest pain and shortness of breath. Patient took several rounds of nitroglycerin at home without relief and then EMS was contacted. Patient was also short of breath. Patient presented to the emergency room was found to be in patient with RVR which improved with a dose of his home diltiazem. Patient did have pulmonary vascular congestion on his chest x-ray and did receive IV furosemide. Patient was seen in consultation by cardiology who initiated the patient on Ranexa and recommended daily furosemide moving forward. Patient from respiratory standpoint, was put on 5 L when he presented but since last evening, has been on room air. Patient was monitored overnight and had no further arrhythmias nor any other somatic complaints. Plan for the patient to be discharged to home in stable condition. Patient will continue with his home medications, which include, losartan, isosorbide, metoprolol succinate, diltiazem. New medications will be furosemide 40 mg daily, Ranexa 500 mg twice daily and potassium chloride 10 mEq daily. Potassium is added for potassium replacement given that he is on a daily diuretic. Patient will be following up with the [place] [facility]ology an appointment has been scheduled for next month. They initially want the patient transferred after the patient was actually admitted to the hospital to [facility] this was initiated by the patient's son, who is a radiologist,. I informed him that this would be a horizontal transfer and that the cost of transportation via ambulance would fall on their shoulders and it be unclear if the excepting and that [facility] would be reimbursed. They change her mind after further discussion. [] Patient Problems: Active and Suspected Problems (Last Reviewed 01/26/20 @ 07:[address] Segun Ring, DO) CHF (congestive heart failure) (Acute) Chest pain (Acute) - Physical Exam Vitals/I&O's: Vital Signs Temp Pulse Resp BP Pulse Ox 36.7 C 85 18 110/62 94 01/27/20 05:47 01/27/20 06:57 01/27/20 05:47 01/27/20 05:47 01/27/20 07:20 Oxygen Flow Rate (L/min) 2 Oxygen Delivery Method Room Air Weight: 79.9 kg Body Mass Index (BMI) 27.6 Intake and Output for Last 24 Hours 01/25/20 01/26/20 01/27/20 23:59 23:59 23:59 Intake Total 1210.75 / 1210.75 70 / 70 Output Total 1500 / 1500 Balance -289.25 / -289.25 70 / 70 General: Alert, Cooperative, No apparent distress HEENT: Atraumatic, Normocephalic Oral: Moist Mucosa, No Gingival or Mucosal Lesions/ Ulcerations Neck: No Nodes, Trachea Midline Lungs: Clear to auscultation, Normal air movement, No rhonchi, No wheeze, No rales Cardiovascular: Regular rate, Regular Rhythm, Normal S1, Normal S2, No murmurs Abdomen: Bowel Sounds Present, Soft, Non Tender, Non-Distended, No Hepato- splenomegaly Psych/Mental Status: Normal Affect, Appropriate Laboratory Results 01/26/20 09:16: Troponin I 0.058 H 01/26/20 12:54: Troponin I 0.097 H Current Medications Acetaminophen (Tylenol) 650 mg PO Q6H PRN PRN PRN Reason: Pain Score 1-10/Temp > 100.7 F Last Admin: 01/26/20 17:38 Dose: 650 mg Documented by: Albuterol Sulfate (Ventolin Aerosols) 2.5 mg INHALATION Q2H PRN PRN PRN Reason: SOB/Wheezing Apixaban (Eliquis) 5 mg PO BID [facility] Last Admin: 01/26/20 21:00 Dose: 5 mg Documented by: Aspirin (Aspirin, Baby) 81 mg PO DAILY@0800 [facility] Last Admin: 01/26/20 10:49 Dose: Not Given Documented by: Calcium/Vitamin D (Os-Ronaldo 500mg + D) [facility] Diltiazem HCl (Cardizem Cd) 240 mg PO DAILY [facility] Fluticasone Propionate (Flonase Nasal [place]) 0 spray NASAL BID PRN PRN Reason: congestion Furosemide (Lasix) 40 mg PO DAILY [facility] Glucagon () 1 mg IM .X1 PRN PRN Reason: Hypoglycemia Dextrose (Dextrose 10%-Water) 250 mls @ 999 mls/hr IV .Q16M PRN; Protocol PRN Reason: HYPOGLYCEMIA Isosorbide Mononitrate (Imdur) 30 mg PO DAILY [facility] Levothyroxine Sodium (Synthroid) 75 mcg PO DAILY@0600 [facility] Last Admin: 01/27/20 05:51 Dose: 75 mcg Documented by: Losartan Potassium (Cozaar) 50 mg PO BID [facility] Last Admin: 01/26/20 21:00 Dose: 50 mg Documented by: Metoprolol Succinate (Toprol Xl (Beta Jayleen)) 25 mg PO DAILY [facility] Multivitamins ([facility]amin) [facility] Nitroglycerin (Nitrostat) 0.4 mg SUBLINGUAL Q5M PRN PRN Reason: CARDIAC/CHEST PAIN Ondansetron HCl (Zofran) 4 mg IV Q8H PRN PRN PRN Reason: NAUSEA/VOMITING Pantoprazole Sodium (Protonix) 20 mg PO DAILY [facility] Last Admin: 01/26/20 10:54 Dose: 20 mg Documented by: Ranolazine (Ranexa) 500 mg PO BID [facility] Last Admin: 01/26/20 21:00 Dose: 500 mg Documented by: Rosuvastatin Calcium (Crestor) 10 mg PO QHS [facility] Last Admin: 01/26/20 21:00 Dose: 10 mg Documented by: Sodium Chloride () 10 - 40 ml IV UD PRN PRN Reason: SALINE FLUSH Discharge Diet: Low fat/ Low Cholesterol, 6 Cup Fluid Restriction, 2000 mg Sodium Diet Call your doctor if you observe: Shortness of breath, Chest pain Home Medications: Medications to take at Discharge Omeprazole [Prilosec] 20 mg PO DAILY 08/21/13 Aspirin [Aspirin, Baby] 81 mg PO DAILY@0800 10/03/15 Multivitamins,Therapeutic [Multivitamin] 1 tab PO DAILY 10/03/15 losartan 50 mg tablet 50 mg PO BID #180 tab 11/08/17 diltiazem HCl 240 mg capsule,extended release 24 hr 240 mg PO DAILY cap 11/16/17 fluticasone propionate 50 mcg/actuation nasal spray,suspension 50 mcg INTRANASAL BID PRN 11/16/17 Acetaminophen [Mapap] 500 mg PO Q6H PRN PRN 12/29/19 Isosorbide Mononitrate [Imdur] 30 mg PO DAILY #30 tab 01/01/20 apixaban 5 mg tablet 5 mg PO BID 01/17/20 calcium carbonate-vitamin D3 600 mg (1,500 mg)-800 unit tablet 1 tab PO DAILY tab 01/17/20 levothyroxine 75 mcg tablet 75 mcg PO DAILY 01/17/20 rosuvastatin 10 mg tablet 10 mg PO DAILY 01/17/20 nitroglycerin 0.4 mg sublingual tablet 0.4 mg SUBLINGUAL Q5M PRN #25 tab 01/25/20 Metoprolol(XL)Succ [Toprol Xl (Beta Jayleen)] 25 mg PO DAILY 03/06/20 Furosemide [Lasix] 40 mg PO DAILY #30 tab 01/27/20 Potassium Chloride [K-Dur] 10 meq PO DAILY #30 tab 01/27/20 Ranolazine [Ranexa] 500 mg PO BID #60 tab 01/27/20 Following Prescrptions Were Given to Patient: Potassium Chloride [K-Dur] 10 meq PO DAILY #30 tab Transmission Status: [id number] Furosemide [Lasix] 40 mg PO DAILY #30 tab Transmission Status: [id number] Ranolazine [Ranexa] 500 mg PO BID #60 tab Transmission Status: [id number] Primary Care Physician: Juancho Coleman DO [Primary Care Provider] - Within 2 Weeks Please Follow Up With: [facility] cardiology When: next month, already scheduled Please Follow Up With: Daniel Justice MD When: 1-2 months Minutes spent on discharge:: 32 Patient Condition:: Good Medical Necessity - Tobacco Use Smoking Status: Never smoker Meaningful Use Info Meaningful Use Diagnoses (Choose all that apply): CHF - CHF IVONNE/ARB ordered at discharge?: Yes Documented LVEF (%): 55 Inpatient E&M: 36391 Disch Hosp
[2020-01-27] MEDS: Metoprolol(XL)Succ 25 MG Tablet PO (09:30)
[2020-01-27] MEDS: Pantoprazole Sodium 20 MG Tablet PO (09:31)
[2020-01-27] MEDS: Multivitamins,Therapeutic Tablet 1 TABLET PO (09:31)
[2020-01-27] MEDS: Furosemide 40 MG Tablet PO (09:31)
[2020-01-27] MEDS: Calcium Carb/Vitamin D 1 TABLET Tablet PO (09:31)
[2020-01-27] MEDS: Ranolazine 500 MG Tablet PO (09:31)
[2020-01-27] MEDS: Isosorbide Mononitrate 30 MG Tablet PO (09:31)
[2020-01-27] MEDS: Losartan Potassium 50 MG Tablet PO (09:31)
[2020-01-27] MEDS: dilTIAZem CD 240 MG Capsule PO (09:31)
[2020-01-27] MEDS: APIXABAN 5 MG TABLET PO (09:31)
[2020-01-27] MEDS: Aspirin 81 MG TAB.CHEW PO (09:31)
--- NOTE | 2020-01-29 16:05 | CASEMGMT ---
Case Management DC F/u Call: DC Date: 01/27/2020 DC Diagnosis: CHF (congestive heart failure) (Acute), Chest pain (Acute) DC Disposition: Home Lace/Strata: 08/24 Called patient home phone, introduced self and role to patient. States he is doing okay. Short responses, confirmed picked up medications and denies any issues, concerns, or questions with [facility]CI, medications or F/u. Thanked patient for choosing care with [facility] and ended phone conversation. Deisy Escobar RNCM
== END 2020-01-27 10:40 | disposition home or self-care (01) | DRG 291 ==
LOC: ED 06:34 → PCU 09:13
PROVIDERS: Emergency Provider Emergency Medicine; PCP Family Medicine
DX: I11.0 Hypertensive heart disease with heart failure (principal); I50.21 Acute systolic (congestive) heart failure; I48.20 Chronic atrial fibrillation, unspecified; I25.110 Atherosclerotic heart disease of native coronary artery with unstable angina pectoris; I25.700 Atherosclerosis of coronary artery bypass graft(s), unspecified, with unstable angina pectoris; I25.82 Chronic total occlusion of coronary artery; R09.02 Hypoxemia; D50.9 Iron deficiency anemia, unspecified; E78.5 Hyperlipidemia, unspecified; E03.9 Hypothyroidism, unspecified; G47.30 Sleep apnea, unspecified; K21.9 Gastro-esophageal reflux disease without esophagitis; I25.2 Old myocardial infarction; Z79.01 Long term (current) use of anticoagulants; Z79.82 Long term (current) use of aspirin; Z79.899 Other long term (current) drug therapy; Z95.1 Presence of aortocoronary bypass graft
CPT/HCPCS: 36415; 71045; 80048; 83880; 84484; 85025; 93005; 93306; 99285; J7030; Q9957; A4216; C8929; J1940

== ENCOUNTER → 2020-07-25 09:39 | Outpatient (CLI) | payer MEDICARE, OTHER, SELFPAY ==
[2019-05-23 14:26] VITALS: BMI 27.6
[2020-02-27 13:07] VITALS: BMI 26.4
--- NOTE | 2020-07-25 09:53 | US_ITS ---
PROCEDURES: ULTRASOUND AORTA REASON FOR EXAM: Male, 80 years old. AAA TECHNIQUE: Ultrasound evaluation of the aorta was performed with real-time and static [place]-scale imaging. COMPARISON: Comparison is made with prior examination done 07/04/2019. FINDINGS: There is atherosclerotic plaque formation of the abdominal aorta. Aorta measures: Proximal 2.6 cm. Middle 1.4 cm. Distal 3.9 cm. Aorta measure transversely: Proximal 2.6 cm. Middle 1.7 cm. Distal 4.5 cm. Right iliac artery measures: 0.8 cm. Right iliac artery measure transversely: 0.9 cm. Left iliac artery measures: 0.8 cm. Left iliac artery measure transversely: 1.1 cm. Infrarenal saccular abdominal aortic aneurysm with a transverse dimension by 4.5 cm.. US/Aorta IMPRESSION: Saccular infrarenal abdominal aortic aneurysm with a transverse dimension of 4.5 cm. This has increased slightly since prior study. Electronically Signed: Mario Garvin, at 12:34 EDT , Service support ,
--- NOTE | 2020-07-25 09:54 | US_ITS ---
STUDY: RENAL ULTRASOUND - COMPLETE REASON FOR EXAM: Male, 80 years old. RENAL CYST TECHNIQUE: Ultrasound evaluation of the kidneys was performed with real-time and static [place]-scale imaging. COMPARISON: Comparison is made with prior study dated 01/17/2019. FINDINGS: RIGHT KIDNEY: Normal location of the right kidney, which is normal in size. The right kidney measures 10.2 cm x 6 cm x 5.1 cm. There is a normal cortex of the right kidney. The renal cortex measures 1.1 cm. 2 renal cysts are seen. The larger measures 8.6 cm x 9.4 cm x 6.5 cm. There are no right renal calculi. There is no right hydronephrosis. DISTAL RIGHT URETER: There is non-visualization of the distal right ureter. There is no demonstrated right ureterovesical junction calculus. There is a visualized right ureteral jet. LEFT KIDNEY: Normal location of the left kidney, which is normal in size. The left kidney measures 9.8 cm x 5.8 cm x 4.9 cm. There is a normal cortex of the left kidney. The renal cortex measures 1.2 cm. There is a 7 mm x 11 mm x 8 mm cyst. There are no left renal calculi. There is no left hydronephrosis. DISTAL LEFT URETER: There is non-visualization of the distal left ureter. There is no demonstrated left ureterovesical junction calculus. There is a visualized left ureteral jet. BLADDER: The distended urinary bladder has a volume of 94 ml. There is a normal wall thickness of the distended urinary bladder. There is no demonstrated mass within the urinary bladder. There are no demonstrated bladder calculi. US/Kidney and Bladder IMPRESSION: Large lower pole right renal cyst. This is unchanged. Electronically Signed: Mario Garvin, at 15:08 EDT , Service support ,
[2020-07-25 10:39] LABS: Absolute Lymphocyte Count 1.75 X10^3/uL (0.83-4.51); Absolute Neutrophil Count 4.1 X10^3/uL (2.0-7.7); Basophil# 0.05 X10^3/uL; Basophil% 0.7 % (0-1); Eosinophil# 0.17 X10^3/uL; Eosinophils% 2.5 % (0-5); Hematocrit 36.8 % (40-54); Hemoglobin 11.8 g/dL (13.0-16.5); Lymphocyte # 1.75 X10^3/ul (4.0); Lymphocyte % 25.7 % (19-41); Mean Corp Hgb Conc 32.1 g/dL (32-36); Mean Corpuscular Hgb 28.9 pg (27.0-32.0); Mean Corpuscular Volume 90.2 fL (80-94); Mean Platelet Vol. 9.2 fl (6.2-12.0); Monocyte# 0.69 X10^3/uL; Monocyte% 10.1 % (0-10); NRBC Flagged by Analyzer 0 % (0-5); Neutrophil # 4.12 X10^3/uL (2.7-7.7); Neutrophil % 60.7 % (47-70); Platelet Count 230 K/mm3 (150-450); RBC Distribution Width CV 13.1 % (11.6-14.6); RBC Distribution Width SD 43.3 fl (35.1-43.9); Red Blood Count 4.08 M/mm3 (4.6-6.2); White Blood Count 6.8 K/mm3 (4.4-11.0)
[2020-07-25 11:19] LABS: ALB/GLOB Ratio 1.1 RATIO (0.9-2.4); AST(SGOT) 20 U/L (15-37); Alanine Aminotransfer ALT/SGPT 22 U/L (16-61); Alkaline Phosphatase 53 U/L (45-117); Anion Gap 3 (5-15); BUN 22 mg/dL (7-18); BUN/Creat Ratio 21.2 RATIO (10-20); Calcium,Total 9.4 mg/dL (8.5-10.1); Chloride 105 mmol/L (98-107); Cholesterol 163 mg/dL (200); Creatinine, Serum 1.04 mg/dL (0.70-1.30); EST Glomerular Filtration Rate 73 mL/min (>60); Est Glom Filt Rate - Afr Amer 88 mL/min (>60); Globulin 3.7 g/dL (2.2-4.2); Glucose 94 mg/dL (74-106); High Density Lipoprotein 58 mg/dL; PSA,Total - Annual Screen 0.57 ng/mL (0.00-4.00); Potassium 4.1 mmol/L (3.5-5.1); Protein, Total 7.7 g/dL (6.4-8.2); Sodium Level 138 mmol/L (136-145); Triglycerides 102 mg/dL; Very Low Density Lipoprotein 20 mg/dL (5-40)
== END ==
PROVIDERS: PCP Family Medicine; Referring Provider Family Medicine; Visit Provider Family Medicine
DX: I71.4 Abdominal aortic aneurysm, without rupture (principal); N28.1 Cyst of kidney, acquired; I25.10 Atherosclerotic heart disease of native coronary artery without angina pectoris; I10 Essential (primary) hypertension; E78.5 Hyperlipidemia, unspecified; E03.9 Hypothyroidism, unspecified; Z12.5 Encounter for screening for malignant neoplasm of prostate
CPT/HCPCS: 36415; 76770; 76775; 80053; 80061; 84153; 84439; 84443; 85025; G0103

== ENCOUNTER → 2020-08-13 10:24 | Outpatient (CLI) | payer MEDICARE, OTHER, SELFPAY ==
[2020-02-27 13:07] VITALS: BMI 26.4
--- NOTE | 2020-08-13 10:35 | RAD_ITS ---
STUDY: X-RAY - CERVICAL SPINE REASON FOR EXAM: Male, 80 years old. PAIN RIGHT SIDE OF CERVICAL SPINE, SOMETIMES RADIATES TO THE LEFT AND ANTERIORLY FOR SOME TIME, GETTING WORSE. NUMBNESS AND TINGLING IN FINGER TIPS. TECHNIQUE: 5 view(s) of the cervical spine were obtained. Including oblique views COMPARISON: None FINDINGS: There are degenerative changes of the anterior atlantoaxial articulation. Normal odontoid process. There is straightening of the normal cervical lordosis. There is mild endplate spondylosis. There is multi-level degenerative disc disease with multilevel disc space narrowing. Facet joint osteoarthritis. Narrowing of the intervertebral foramen at the C5-C6 level. The soft tissue structures are unremarkable. RAD/Cerv Spine 4 or 5 Views IMPRESSION: Disc space narrowing and mild spondylosis. Facet joint osteoarthritis. Mild degree of volume nor foraminal stenosis at the C5-C6 level bilaterally. Electronically Signed: Mario Garvin, at 10:45 EDT , Service support ,
== END ==
PROVIDERS: PCP Family Medicine; Referring Provider Family Medicine; Visit Provider Family Medicine
DX: M54.2 Cervicalgia (principal)
CPT/HCPCS: 72050

== ENCOUNTER → 2020-11-26 06:14 | Outpatient (CLI) | payer MEDICARE, OTHER, SELFPAY ==
[2020-02-27 13:07] VITALS: BMI 26.4
--- NOTE | 2020-11-26 06:30 | RAD_ITS ---
STUDY: X-RAY CHEST REASON FOR EXAM: Male, 80 years old. dyspnea TECHNIQUE: PA and lateral views of the chest. COMPARISON: 01/26/2020 FINDINGS: EKG leads project over the chest. Lungs are underexpanded with persistent reticular densities in the bilateral lung bases. No airspace consolidation. There is no demonstrated pleural abnormality. There is mild cardiac enlargement. Sternal wires and mediastinal surgical clips compatible with prior CABG. Normal visualized pulmonary arteries. There is atherosclerotic tortuosity of the aortic arch and descending thoracic aorta. There is demineralization of the osseous structures. Normal visualized ribs, clavicles, and shoulders. There is no demonstrated abnormality of the visualized soft tissue structures of the upper abdomen. RAD/Chest PA and Lateral IMPRESSION: 1. Overall similar basilar dominant parenchymal fibrosis. Electronically Signed: Tj Geiger MD ([place]) at 16:50 EST , Service support ,
[2020-11-26 08:07] LABS: Absolute Lymphocyte Count 2.07 X10^3/uL (0.83-4.51); Absolute Neutrophil Count 6.6 X10^3/uL (2.0-7.7); Basophil# 0.07 X10^3/uL; Basophil% 0.7 % (0-1); Eosinophil# 0.24 X10^3/uL; Eosinophils% 2.4 % (0-5); Hematocrit 34.9 % (40-54); Hemoglobin 10.5 g/dL (13.0-16.5); Lymphocyte # 2.07 X10^3/ul (4.0); Lymphocyte % 20.6 % (19-41); Mean Corp Hgb Conc 30.1 g/dL (32-36); Mean Corpuscular Hgb 24.9 pg (27.0-32.0); Mean Corpuscular Volume 82.7 fL (80-94); Mean Platelet Vol. 9.3 fl (6.2-12.0); Monocyte# 1.06 X10^3/uL; Monocyte% 10.5 % (0-10); NRBC Flagged by Analyzer 0 % (0-5); Neutrophil # 6.59 X10^3/uL (2.7-7.7); Neutrophil % 65.6 % (47-70); Platelet Count 251 K/mm3 (150-450); RBC Distribution Width CV 16.5 % (11.6-14.6); Red Blood Count 4.22 M/mm3 (4.6-6.2); White Blood Count 10.1 K/mm3 (4.4-11.0)
--- NOTE | 2020-11-26 16:15 | PFTCOMP ---
COMPLETE PULMONARY FUNCTION TEST INTERPRETATION Brief HPI: Patient is an 80 year old male, currently under the care of Dr. Coleman, who presents to [facility] for complete pulmonary function tests secondary to diagnosis of dyspnea. Respiratory therapist reports good effort and reproducible results. Interpretation: Forced expiration spirometry shows a mild large airways obstructive ventilatory defect with an FEV1 of 70% predicted. There is no significant bronchodilator response by strict ATS criteria, but FEV1 did improve by 170 mL and 11%. Spirograms are of good quality and plateau slowly, indicating slowly emptying areas of the lungs. The respiratory flow volume loop shows decreased expiratory flow rates at all lung volumes consistent with airway obstruction. Lung volumes by body plethysmography show a decreased total lung capacity at 4.37 L, 78% predicted. All other lung volumes are reduced symmetrically. Diffusion capacity by carbon monoxide is normal at 98% predicted. The airway resistance is normal. Compared to previous pulmonary function tests from 02/04/2015, there is been a significant reduction in FEV1 and DLCO by 16% and 13% respectively. Impression: Mild mixed ventilatory defect with preserved diffusion capacity and evidence of further progression of lung function decline
== END ==
PROVIDERS: PCP Family Medicine; Referring Provider Family Medicine; Visit Provider Family Medicine
DX: J84.9 Interstitial pulmonary disease, unspecified (principal); Z51.81 Encounter for therapeutic drug level monitoring
CPT/HCPCS: 36415; 71046; 85025; 94060; 94726; 94729

== ENCOUNTER → 2020-12-03 11:21 | Outpatient (CLI) | payer MEDICARE, OTHER, SELFPAY ==
[2020-12-03 16:20] LABS: Vitamin B12 844 pg/mL (211-911)
[2020-12-03 17:04] LABS: Ferritin 33 ng/mL (26-388); Iron 35 ug/dL (65-175)
== END ==
PROVIDERS: PCP Family Medicine; Referring Provider Internal Medicine Critical Care Medicine; Visit Provider Internal Medicine Critical Care Medicine
DX: D64.9 Anemia, unspecified (principal)
CPT/HCPCS: 36415; 82607; 82728; 82746; 83540

== ENCOUNTER → 2020-12-07 07:45 | Outpatient (CLI) | payer MEDICARE, OTHER, SELFPAY ==
[2020-02-27 13:07] VITALS: BMI 26.4
--- NOTE | 2020-12-07 07:46 | CT_ITS ---
STUDY: CT CHEST WITHOUT CONTRAST REASON FOR EXAM: Male, 80 years old. INTERSTITIAL LUNG DISEASE RADIATION DOSAGE (If Supplied By Facility): CTDIvol = ( 13.70 ) mGy, DLP = ( 486.15 ) mGycm TECHNIQUE: Transaxial imaging was performed without the administration of intravenous contrast material. Individualized dose optimization techniques were used for this CT. COMPARISON: None. FINDINGS: Moderate degree of hyperinflation particularly in the lower lungs. Peribronchial thickening and stranding in the lower lungs with bronchiectatic changes centrally and extending to the lower lobes. Interstitial septal thickening and peripheral aspect of the right lower lung. Mild atelectasis or scarring in the left lower lobe. No focal infiltrate is seen. No pulmonary nodules or focal masses are seen. There is no evidence of pleural effusions. Moderate cardiomegaly. No evidence of pericardial effusion. Sternal cerclage wires and vascular clips are present from a prior sternotomy and coronary artery bypass graft procedure (CABG). Normal mediastinum. Normal hilar regions. Normal unenhanced pulmonary arteries. Dilated ascending thoracic aorta measuring by 4.8 cm in transverse diameter. Atherosclerotic calcifications and tortuosity of the descending thoracic aorta. There are multi-level degenerative changes of the thoracic spine. There is increased kyphosis. The visualized portions of the upper abdomen demonstrate gallstones. There is small hiatal hernia. Calcified granulomata of the spleen are seen. CT/Chest without Contrast IMPRESSION: Chronic interstitial changes and bronchiectatic changes predominantly in the lower lungs and probable pulmonary fibrosis. No mass, adenopathy or focal acute infiltrate. Dilated ascending thoracic aorta approaching aneurysmal measurements. Gallstone. Electronically Signed: Rush Johnson MD at 9:18 EST Tel , Service support ,
== END ==
PROVIDERS: PCP Family Medicine; Referring Provider Internal Medicine Critical Care Medicine; Visit Provider Internal Medicine Critical Care Medicine
DX: R94.2 Abnormal results of pulmonary function studies (principal)
CPT/HCPCS: 71250

== ENCOUNTER → 2020-12-24 12:10 | Outpatient (CLI) | payer MEDICARE, OTHER, SELFPAY ==
[2020-12-24 10:13] VITALS: BMI 25.7
== END ==
PROVIDERS: PCP Family Medicine; Referring Provider Nurse Practitioner Acute Care; Visit Provider Nurse Practitioner Acute Care
DX: J47.9 Bronchiectasis, uncomplicated (principal)
CPT/HCPCS: 94667

== ENCOUNTER → 2021-01-03 09:59 | Outpatient (CLI) | payer MEDICARE, OTHER, SELFPAY ==
[2020-12-24 10:13] VITALS: BMI 25.7
[2021-01-03 11:37] LABS: Absolute Lymphocyte Count 1.21 X10^3/uL (0.83-4.51); Absolute Neutrophil Count 4.9 X10^3/uL (2.0-7.7); Basophil# 0.05 X10^3/uL; Basophil% 0.7 % (0-1); Eosinophil# 0.17 X10^3/uL; Eosinophils% 2.4 % (0-5); Hemoglobin 12.2 g/dL (13.0-16.5); Lymphocyte # 1.21 X10^3/ul (4.0); Lymphocyte % 17.1 % (19-41); Mean Corp Hgb Conc 31.3 g/dL (32-36); Mean Corpuscular Hgb 26.9 pg (27.0-32.0); Mean Corpuscular Volume 86.1 fL (80-94); Mean Platelet Vol. 8.9 fl (6.2-12.0); Monocyte# 0.76 X10^3/uL; Monocyte% 10.7 % (0-10); NRBC Flagged by Analyzer 0 % (0-5); Neutrophil # 4.86 X10^3/uL (2.7-7.7); Neutrophil % 68.8 % (47-70); Platelet Count 221 K/mm3 (150-450); RBC Distribution Width CV 19.2 % (11.6-14.6); RBC Distribution Width SD 60.3 fl (35.1-43.9); Red Blood Count 4.53 M/mm3 (4.6-6.2); White Blood Count 7.1 K/mm3 (4.4-11.0)
[2021-01-03 12:09] LABS: Ferritin 41 ng/mL (26-388); Iron 44 ug/dL (65-175); Iron Binding Capacity,Total 371 ug/dL (250-450)
== END ==
LOC: BFHLAB 10:01 → LAB 10:48
PROVIDERS: PCP Family Medicine; Referring Provider Family Medicine; Visit Provider Family Medicine
DX: D64.9 Anemia, unspecified (principal)
CPT/HCPCS: 36415; 82728; 83540; 83550; 85025

== ENCOUNTER 2021-03-20 10:10 | Emergency (ER) | payer MEDICARE, OTHER, SELFPAY ==
[2020-12-24 10:13] VITALS: BMI 25.7
[2021-03-20] VITALS (18 sets, daily range): BP systolic 91–132; BP diastolic 59–91; PULSE 93–113; RESP 23–32; TEMP 36.3–37.2; O2SAT 91–97; BMI 26.3
--- NOTE | 2021-03-20 10:42 | CT_ITS ---
STUDY: CT ABDOMEN AND PELVIS WITH CONTRAST REASON FOR EXAM: Male, 81 years old. 3 day history of abdominal pain and constipation. History of pulmonary fibrosis. RADIATION DOSAGE (If Supplied By Facility): CTDIvol = ( 24.97 ) mGy, DLP = ( 557.49 ) mGycm TECHNIQUE: Transaxial images were obtained from the dome of the diaphragm to the symphysis pubis without oral contrast. IV 75mL Isovue-[id number] was administered. Sagittal and coronal images were reconstructed. Individualized dose optimization techniques were used for this CT. COMPARISON: Comparison is made with prior study dated 01/22/2017. FINDINGS: Stable increased markings at the lung bases suggestive of a chronic interstitial fibrosis. Coronary artery calcification. Calcified granuloma in the right lower lobe. Prior CABG. There is decreased attenuation of the liver consistent with steatosis. Small solitary gallstone along the dependent portion of the gallbladder lumen. There are multiple benign calcified granulomata of the spleen. Normal pancreas. Normal bilateral adrenal glands. There is an 8.1 cm 9.1 cm cyst in the lower pole of the right kidney. Bilateral renal cortical atrophy. There is a 1 cm cyst in the lateral anterior aspect of the left kidney. Normal visualized stomach. Normal small intestine. There are multiple colonic diverticula consistent with diverticulosis. The appendix is visualized and appears normal. There is diffuse atherosclerotic calcification of the abdominal aorta. There is a fusiform infrarenal abdominal aortic aneurysm with a transverse dimension of 4.8 cm. Normal inferior vena cava. Normal retroperitoneum. Normal urinary bladder. There is evidence of a prior TURP. Normal abdominal wall. There are diffuse degenerative changes of the visualized lumbar spine. CT/Abdomen/Pelvis W IV Cont ONLY IMPRESSION: Fatty infiltration of liver. Small solitary gallstone in the dependent portion gallbladder lumen. 8.1 cm x 9.1 cm cyst in the lower pole of the right kidney. 1 cm cyst in the anterior aspect of the left kidney. Bilateral renal cortical atrophy. Fusiform infrarenal abdominal aortic aneurysm with a transverse dimension of 4.8 cm. Mural thrombus is seen. Electronically Signed: Mario Garvin MD at 12:36 EDT , Service support ,
--- NOTE | 2021-03-20 10:42 | EKG12_ITS ---
Test Reason : REPEAT CP Blood Pressure : / mmHG Vent. Rate : 105 BPM Atrial Rate : 105 BPM P-R Int : 188 ms QRS Dur : 118 ms QT Int : 356 ms P-R-T Axes : 073 -11 163 degrees QTc Int : 470 ms Sinus tachycardia Incomplete left bundle branch block ST segment abnormality: consider subendocardial injury Abnormal ECG Confirmed by RANDY GLASGOW, NGOZI ([id number]), photograph editor ANA VITAL ([id number]) on 03/24/2021 10:15:28 AM Referred By: Charline Dong Confirmed By:NGOZI PADILLA MD
--- NOTE | 2021-03-20 10:42 | RAD_ITS ---
STUDY: X-RAY CHEST REASON FOR EXAM: Male, 81 years old. Nausea, vomiting. Chest pain. TECHNIQUE: Single AP portable view of the chest. COMPARISON: Comparison is made with prior study dated 11/26/2020. FINDINGS: EKG electrodes are seen. There is evidence of vascular congestion and mild CHF. Stable mild increased linear markings at the lung bases suggestive of probable linear atelectasis. There is blunting of left costophrenic angle. Sternal cerclage wires and vascular clips are present from a prior sternotomy and coronary artery bypass graft procedure (CABG). Moderate cardiomegaly. Normal mediastinum and bryson. Normal visualized pulmonary arteries. There is atherosclerotic tortuosity of the aortic arch and descending thoracic aorta. There are diffuse degenerative changes of the visualized thoracic spine. Normal visualized ribs, clavicles, and shoulders. There is no demonstrated abnormality of the visualized soft tissue structures of the upper abdomen. RAD/Chest 1 View (Portable) IMPRESSION: Cardiomegaly and mild degree of CHF. Mild increased markings at the lung bases suggestive of atelectasis. Electronically Signed: Mario Garvin MD at 12:31 EDT , Service support ,
--- NOTE | 2021-03-20 10:53 | ED.VIS.GI ---
HPI HPI - GI History of Present Illness Chief Complaint: Abd Pain Narrative Narrative: Patient is a 81-year-old male with history of coronary artery disease, hypertension, hyperlipidemia, hypothyroid, atrial fibrillation and CHF presenting with nausea and vomiting. Patient states he has had symptoms for the past 4 days. Has not really been able to keep anything down. He tried taking Pepto-Bismol with minimal relief. He has mild diffuse abdominal discomfort associated with the vomiting. He is mostly vomiting up clear/white material. Patient notes he has chronic pain in his shoulders and up to his neck associated with severe degenerative disc disease. This is unchanged but slightly more bothersome because of all the vomiting. He denies any specific abdominal pain. He has had decreased bowel movements for the past little days but states he is still passing some gas. He states he feels mildly bloated. Denies any urinary symptoms but does report decreased urine output. Patient is chronically short of breath but this appears unchanged. Saw his PCP on Wednesday, 2 days ago where he was scheduled for an EGD in April and an H. pylori breath test. [facility] Medical History (Updated 03/20/21 @ 16:[address] 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 Atherosclerotic heart disease [place] coronary artery w/angina pectoris Atrial fibrillation with rapid ventricular response Cardiac arrhythmia Carotid bruit Chronic tachycardia DDD (degenerative disc disease), lumbar Essential (primary) hypertension GERD (gastroesophageal reflux disease) HLD (hyperlipidemia) Hypothyroidism Iatrogenic hypothyroidism Iron deficiency anemia Non-ST elevated myocardial infarction (non-STEMI) (12/29/19) Nonrheumatic mitral (valve) prolapse Persistent atrial fibrillation Sleep apnea Home Medications omeprazole 20 mg PO DAILY 08/21/13 [History Last Taken 01/25/20 08:00] aspirin 81 mg PO DAILY@0800 10/03/15 [History Last Taken 01/25/20 08:00] multivitamin with folic acid 1 tab PO DAILY 10/03/15 [History Last Taken 01/25/20 08:00] fluticasone propionate 50 mcg/actuation nasal spray,suspension 50 mcg INTRANASAL BID PRN 11/16/17 [History Last Taken 12/29/19] acetaminophen 500 mg PO Q6H PRN PRN 12/29/19 [History Last Taken Unknown] calcium carbonate-vitamin D3 600 mg (1,500 mg)-800 unit tablet 1 tab PO DAILY tab 01/17/20 [History Last Taken Unknown] levothyroxine 75 mcg tablet 75 mcg PO DAILY 01/17/20 [History Last Taken 01/25/20 08:00] nitroglycerin 0.4 mg sublingual tablet 0.4 mg SUBLINGUAL Q5M PRN #25 tab 01/25/20 [Rx Last Taken 01/26/20 08:00] diltiazem HCl 240 mg capsule,extended release 24 hr 240 mg PO DAILY #30 cap 02/27/20 [Rx Last Taken Unknown] metoprolol succinate 50 mg tablet,extended release 24 hr 50 mg PO DAILY #30 tab 02/27/20 [Rx Last Taken Unknown] fluticasone furoate 200 mcg-vilanterol 25 mcg/dose inhalation powder 1 inh INHALATION DAILY #60 ea 11/29/20 [Rx Last Taken Unknown] PEP device #1 ea 12/24/20 [Rx Last Taken Unknown] clopidogrel [Plavix] 75 mg PO DAILY 03/20/21 [History Last Taken Unknown] isosorbide mononitrate 30 mg PO DAILY 03/20/21 [History Last Taken Unknown] pantoprazole 40 mg PO DAILY 03/20/21 [History Last Taken Unknown] rosuvastatin 40 mg PO DAILY 03/20/21 [History Last Taken Unknown] tramadol 50 mg PO Q4H PRN 03/20/21 [History Last Taken Unknown] Allergy/AdvReac Type Severity Reaction Status Date / Time amiodarone Allergy cough Verified 03/20/21 10:15 hydrochlorothiazide Allergy Unknown Verified 03/20/21 10:15 rosuvastatin calcium Allergy Unknown Verified 03/20/21 10:15 [From Crestor] Gtznhyh-[id number]-Fpm Reductase Allergy Unknown Verified 03/20/21 10:15 Inhibitor Family History (Reviewed 12/24/20 @ 10:26 by Shaneka Head MAINTENANCE MECH[employer]IC 2ND SHIFT, MAINTENANCE MECHANIC 2ND SHIFT-C) Father Hypertension HLD (hyperlipidemia) Cancer Mother Hypertension Myocardial infarction, Onset Age: 70 Asthma Heart disease Brother Kidney disease Cancer Sister HLD (hyperlipidemia) Heart disease Hypertension Bleeding disorder Son HLD (hyperlipidemia) Surgical History (Reviewed 12/24/20 @ 10:26 by Shaneka Head MAINTENANCE MECHANIC 2ND SHIFT, MAINTENANCE MECH[employer]IC 2ND SHIFT-C) H/O coronary artery bypass surgery History of intravascular stent placement History of left heart catheterization (12/29/19) History of meniscectomy of left knee (10/26/12) History of radiofrequency ablation procedure for cardiac arrhythmia Social History (Updated 12/24/20 @ 13:54 by Shaneka Head NP, MAINTENANCE MECH[employer]IC 2ND SHIFT-C) Smoking Status: Never smoker alcohol intake: current alcohol intake frequency: holidays/special occasions only Alcohol type: beer and wine substance use type: does not use diet: low salt caffeine: No what type of physical activity do you participate in: none seatbelt use: always do you feel safe at home: Yes ROS ROS ED Constitutional Constitutional ED: Denies chills or fever(s) ENT ENT ED: Denies rhinorrhea Cardiovascular Cardiovascular: Reports chest pain Respiratory/Chest Respiratory/Chest: Reports dyspnea Gastrointestinal Gastrointestinal: Reports nausea and vomiting; Denies abdominal pain Genitourinary Genitourinary ED: Denies dysuria or hematuria Musculoskeletal Musculoskeletal: Reports neck pain; Denies arthralgias or myalgias Integumentary Denies rash Neurologic Neurologic: Reports headache(s); Denies weakness Psychiatric Psychiatric: Denies anxiety or depression EXAM Physical Exam Const Vital Signs: 03/20/21 10:11 03/20/21 12:01 03/20/21 12:41 Temperature 98.9 F 97.4 F L Temperature Source Temporal Temporal Pulse Rate 93 97 109 H Respiratory Rate 32 H 27 H Blood Pressure 114/70 124/89 H 99/79 Blood Pressure Mean 84 100 Blood Pressure Source Blood Pressure Position Blood Pressure Location Pulse Ox 94 94 Oxygen Delivery Method Room Air Room Air Oxygen Flow Rate (L/min) 03/20/21 12:59 03/20/21 13:01 03/20/21 13:04 Temperature 98.6 F Temperature Source Temporal Pulse Rate 113 H 110 H 107 H Respiratory Rate 24 H Blood Pressure 132/91 H 132/91 H 126/88 H Blood Pressure Mean 104 Blood Pressure Source Blood Pressure Position Blood Pressure Location Pulse Ox 96 Oxygen Delivery Method Nasal Cannula Oxygen Flow Rate (L/min) 2 03/20/21 14:00 03/20/21 14:40 03/20/21 14:46 Temperature 98.8 F Temperature Source Oral Pulse Rate 100 Respiratory Rate 24 H 23 H Blood Pressure 102/66 124/84 H 111/84 H Blood Pressure Mean 78 93 Blood Pressure Source Monitor Blood Pressure Position Semi-Fowlers Blood Pressure Location Right Arm Pulse Ox 96 Oxygen Delivery Method Nasal Cannula Oxygen Flow Rate (L/min) 2 03/20/21 14:55 03/20/21 15:03 03/20/21 15:06 Temperature Temperature Source Pulse Rate Respiratory Rate Blood Pressure 116/85 H 109/86 H Blood Pressure Mean 95 93 Blood Pressure Source Monitor Monitor Blood Pressure Position Semi-Fowlers Blood Pressure Location Right Arm Pulse Ox 91 Oxygen Delivery Method Nasal Cannula Oxygen Flow Rate (L/min) 2 03/20/21 15:07 03/20/21 15:11 03/20/21 15:15 Temperature 98.9 F Temperature Source Oral Pulse Rate 97 Respiratory Rate 23 H Blood Pressure 110/76 94/69 Blood Pressure Mean 87 77 Blood Pressure Source Monitor Blood Pressure Position Semi-Fowlers Blood Pressure Location Right Arm Pulse Ox 94 94 Oxygen Delivery Method Nasal Cannula Nasal Cannula Oxygen Flow Rate (L/min) 4 4 03/20/21 15:35 03/20/21 15:41 Temperature Temperature Source Pulse Rate 95 103 H Respiratory Rate 24 H 24 H Blood Pressure 91/59 L 101/65 Blood Pressure Mean 69 77 Blood Pressure Source Blood Pressure Position Blood Pressure Location Pulse Ox 94 95 Oxygen Delivery Method Nasal Cannula Nasal Cannula Oxygen Flow Rate (L/min) 4 4 Positive well nourished and well developed General Appearance ED: well developed HEENT normocephalic and atraumatic Eyes PERRL and EOMs intact bilaterally Neck supple and no JVD Resp normal respiratory effort Resp Narrative: coarse breath sounds, no cracklesv Auscultation: diminished lung sounds Cardio regular rhythm Rate: tachycardic GI non-tender and non-distended Palpation: soft; Negative for guarding, rigid or rebound tenderness present Extremity full ROM General Extremety ED: Negative for edema or tenderness General Extremity: Negative for edema Neuro CN's II-XII intact bilaterally and moves all extremities Sensorium / Orientation: alert Psych mental status grossly normal and thought process normal Skin Lesions: no lesions Rashes: no rashes MDM MDM MDM Narrative Medical decision making narrative: Patient evaluated for 4 days of nausea and vomiting. He initially denies any new chest pain. He states he has a history of pulmonary fibrosis and coronary disease and often gets chest pain especially when he walks from room that has a change in temperature. He is concerned about dehydration. He has been taking Pepto-Bismol with minimal relief of his symptoms. Exam is nonfocal. He has mildly tachycardic. Initial EKG does show some ischemic changes but not significantly change from prior EKGs. Patient does start to complain of more chest pains. His troponin is elevated at 5.73. CT of the abdomen pelvis obtained does not show any acute process. I suspect his nausea and vomiting or anginal equivalents. Patient is given aspirin. Case is discussed with cardiology on-call, Dr. Peng, who recommends heparin drip and continue his aspirin as well as Plavix. Patient and son state that he has a complex cardiac history would like to be transferred to [facility] where he had his last stent placed. Transfer line is called and patient is excepted initially by the medicine service. Case is discussed with cardiology there who feels that he is stable for the stepdown unit. Patient begins to complain of increased nausea vomiting. He is also treated with Reglan. While patient is in the ER he started to complain of more chest pain. Repeat EKGs were obtained which show worsening ischemic changes. Patient is given nitroglycerin with improvement of his pain. Transfer line is updated but we are still waiting on a bed. Patient again complained of chest pain so a fourth EKG is obtained which now shows criteria for STEMI. I am concerned for ischemia in the inferior region. Patient is placed on a nitro drip. A STEMI alert is called and case is discussed again with cardiology here as I am concerned about transport time. Cardiology does not feel that patient is appropriate to cath here because of his significant prior disease and difficult cath and no cardiothoracic surgery backup. He did speak to cardiology at [facility] at length about this. Patient will be transferred emergently to [facility] now. Patient and son are in agreement and understanding of this plan. Lab Data Labs: Laboratory Results - last 24 hr 03/20/21 03/20/21 03/20/21 11:01 11:01 11:01 WBC 10.0 RBC 4.15 L Hgb 12.4 L Hct 36.7 L MCV 88.4 MCH 29.9 MCHC 33.8 RDW Std Deviation 52.2 H RDW Coeff of Rika 15.9 H Plt Count 162 MPV 9.2 Immature Gran % (Auto) 0.400 Neut % (Auto) 79.6 H Lymph % (Auto) 8.7 L [place] % (Auto) 10.6 H Eos % (Auto) 0.4 Baso % (Auto) 0.3 Absolute Neuts (auto) 7.9 H Absolute Lymphs (auto) 0.87 Nucleated RBC % 0 APTT Sodium 137 Potassium 3.8 Chloride 105 Carbon Dioxide 27.0 Anion Gap 5 BUN 15 Creatinine 0.94 Estim Creat Clear Calc 55.67 Est GFR (MDRD) Af Amer 99 Est GFR (MDRD) Non-Af 81 BUN/Creatinine Ratio 16.0 Glucose 99 Lactic Acid 1.6 Calcium 9.3 Total Bilirubin 1.20 H Direct Bilirubin 0.29 AST 49 H ALT 28 Alkaline Phosphatase 55 Troponin I 5.730 H* Total Protein 7.2 Albumin 3.4 Globulin 3.8 Lipase 51 L 03/20/21 11:05 WBC RBC Hgb Hct MCV MCH MCHC RDW Std Deviation RDW Coeff of Rika Plt Count MPV Immature Gran % (Auto) Neut % (Auto) Lymph % (Auto) [place] % (Auto) Eos % (Auto) Baso % (Auto) Absolute Neuts (auto) Absolute Lymphs (auto) Nucleated RBC % APTT 26.1 Sodium Potassium Chloride Carbon Dioxide Anion Gap BUN Creatinine Estim Creat Clear Calc Est GFR (MDRD) Af Amer Est GFR (MDRD) Non-Af BUN/Creatinine Ratio Glucose Lactic Acid Calcium Total Bilirubin Direct Bilirubin AST ALT Alkaline Phosphatase Troponin I Total Protein Albumin Globulin Lipase Radiography Diagnostic Testing: Radiology Impression Abdomen/Pelvis CT 03/20/21 10:42 IMPRESSION: Fatty infiltration of liver. Small solitary gallstone in the dependent portion gallbladder lumen. 8.1 cm x 9.1 cm cyst in the lower pole of the right kidney. 1 cm cyst in the anterior aspect of the left kidney. Bilateral renal cortical atrophy. Fusiform infrarenal abdominal aortic aneurysm with a transverse dimension of 4.8 cm. Mural thrombus is seen. Electronically Signed: Mario Garvin MD at 12:36 EDT , Service support , Chest X-Ray 03/20/21 10:42 IMPRESSION: Cardiomegaly and mild degree of CHF. Mild increased markings at the lung bases suggestive of atelectasis. Electronically Signed: Mario Garvin MD at 12:31 EDT , Service support , Rhythm Strip Rhythm Strip: Sinus Tach Rate: 115 Ectopy: None EKG Initial EKG: Attestation: I personally reviewed and interpreted this EKG as follows: Interpretation: Sinus Tachycardia Comments: Sinus tachycardia at a rate of 115 Normal axis T wave depressions in inferior lateral leads. No significant change compared to prior EKG on December 2019 Prior: Unchanged Follow-up EKG: Interpretation: Sinus Rhythm Comments: Sinus rhythm rate of [address] depressions in lateral leads Prior: Changed #3: Interpretation: Sinus Tachycardia Comments: Sinus tachycardia rate of [address] depressions #4: Attestation: I personally reviewed and interpreted this EKG as follows: Interpretation: Sinus Tachycardia Comments: Sinus tachycardia rate of [address] depressions in lateral leads No significant change compared to EKG #3 Prior: Changed 5: Attestation: I personally reviewed and interpreted this EKG as follows: Interpretation: Sinus Tachycardia Comments: Sinus tachycardia at a rate of [address] elevations in lead III and reciprocal changes in the precordial and lateral leads Treatment and Re-Evaluation Comments:: Nausea vomiting initially treated with IV fluids and Zofran Troponin came back elevated patient is given aspirin started on heparin drip. He had recurrent vomiting which is treated with Reglan. He does not complain of chest pain and is given sublingual nitroglycerin. Cardiology consult obtained in the ER. Decision made to transfer given his past medical history and preference. Patient had continued chest pain and subsequent EKG showed STEMI. Patient felt to be complex for [facility]. Transferred emergently on heparin and nitroglycerin drip to [facility]. Critical Care Time Critical Care Time: Yes Critical care time (excluding procedures): 30-74 minutes (55), Discussing w/Patient &/or Family/Foxpro Developer, Discussing w/Consultants and Arranging Admission or Transfer Discharge Plan Triage Chief Complaint: Abd Pain ED Provider: Adriana Lopez Dx/Rx/DC Orders Clinical Impression: ST elevation (STEMI) myocardial infarction, Intractable nausea and vomiting Prescriptions: No Action fluticasone propionate 50 mcg/actuation spray,suspension 50 mcg INTRANASAL BID PRN (Reason: Congestion) RF: 0 levothyroxine 75 mcg tablet 75 mcg PO DAILY RF: 0 diltiazem HCl 240 mg capsule,extended release 24hr 240 mg PO DAILY Qty: 30 RF: 11 metoprolol succinate 50 mg tablet extended release 24 hr 50 mg PO DAILY Qty: 30 RF: 11 Breo Ellipta 200-25 mcg/dose blister with device 1 inh INHALATION DAILY Qty: 60 RF: 3 (DME) PEP device See Rx Instructions .ROUTE .MEDSUPPLY Qty: 1 RF: 0 omeprazole 20 MG capsule 20 mg PO DAILY RF: 0 calcium carbonate-vitamin D3 600 mg(1,500mg) -800 unit tablet 1 tab PO DAILY RF: 0 aspirin 81 MG tablet,chewable 81 mg PO DAILY@0800 RF: 0 multivitamin with folic acid 1 TABLET tablet 1 tab PO DAILY RF: 0 acetaminophen 500 MG tablet 500 mg PO Q6H PRN PRN (Reason: Pain Or Fever) RF: 0 isosorbide mononitrate 30 mg Tablet Extended Release 24 Hr 30 mg PO DAILY RF: 0 clopidogrel [Plavix] 75 mg Tablet 75 mg PO DAILY RF: 0 tramadol 50 mg Tablet 50 mg PO Q4H PRN (Reason: Pain) RF: 0 pantoprazole 40 mg Tablet,Delayed Release (Dr/Ec) 40 mg PO DAILY RF: 0 rosuvastatin 10 mg tablet 40 mg PO DAILY RF: 0 nitroglycerin 0.4 mg tablet, sublingual 0.4 mg sublingual Q5M PRN (Reason: Chest Pain) Qty: 25 RF: 4 Primary Care Provider: Juancho Coleman Referrals: Juancho Coleman DO [Primary Care Provider] - Disposition Disposition: Acute Care Hospital Discharge Location: [facility] Discharge Date/Time: 03/20/21 15:54
[2021-03-20 11:14] LABS: Absolute Lymphocyte Count 0.87 X10^3/uL (0.83-4.51); Absolute Neutrophil Count 7.9 X10^3/uL (2.0-7.7); Basophil# 0.03 X10^3/uL; Basophil% 0.3 % (0-1); Eosinophil# 0.04 X10^3/uL; Eosinophils% 0.4 % (0-5); Hematocrit 36.7 % (40-54); Hemoglobin 12.4 g/dL (13.0-16.5); Lymphocyte # 0.87 X10^3/ul (0.83-4.51); Lymphocyte % 8.7 % (19-41); Mean Corp Hgb Conc 33.8 g/dL (32-36); Mean Corpuscular Hgb 29.9 pg (27.0-32.0); Mean Corpuscular Volume 88.4 fL (80-94); Mean Platelet Vol. 9.2 fl (6.2-12.0); Monocyte# 1.06 X10^3/uL; Monocyte% 10.6 % (0-10); NRBC Flagged by Analyzer 0 % (0-5); Neutrophil # 7.93 X10^3/uL (2.7-7.7); Neutrophil % 79.6 % (47-70); Platelet Count 162 K/mm3 (150-450); RBC Distribution Width CV 15.9 % (11.6-14.6); RBC Distribution Width SD 52.2 fl (35.1-43.9); Red Blood Count 4.15 M/mm3 (4.6-6.2)
[2021-03-20 11:34] LABS: AST(SGOT) 49 U/L (15-37); Alanine Aminotransfer ALT/SGPT 28 U/L (16-61); Albumin, Serum 3.4 g/dL (3.2-5.0); Alkaline Phosphatase 55 U/L (45-117); Anion Gap 5 (5-15); BUN 15 mg/dL (7-18); Bilirubin, Direct 0.29 mg/dL (0.00-0.30); Calcium,Total 9.3 mg/dL (8.5-10.1); Chloride 105 mmol/L (98-107); Creatinine, Serum 0.94 mg/dL (0.70-1.30); EST Glomerular Filtration Rate 81 mL/min (>60); Est Glom Filt Rate - Afr Amer 99 mL/min (>60); Estimated Creatinine Clearance 55.67 ml/min; Globulin 3.8 g/dL (2.2-4.2); Glucose 99 mg/dL (74-106); Lipase 51 U/L (73-393); Potassium 3.8 mmol/L (3.5-5.1); Protein, Total 7.2 g/dL (6.4-8.2); Sodium Level 137 mmol/L (136-145)
[2021-03-20 11:40] LABS: Lactic Acid 1.6 mmol/L (0.4-1.9)
[2021-03-20] MEDS: Ondansetron 4 MG/2 ML Vial IV (11:57)
[2021-03-20] MEDS: Famotidine 200 MG/20 ML MDV 20 MG in 0.9% Normal Saline (Pres. free 8 ML 300 MG IV (11:57)
[2021-03-20] MEDS: 0.9% Normal Saline 1,000 ML 1000 ML IV (11:57)
[2021-03-20 12:09] LABS: Partial Thromboplast Time 26.1 Seconds (24.1-36.2)
--- NOTE | 2021-03-20 12:30 | EKG12_ITS ---
Test Reason : HIGH TROPONIN Blood Pressure : / mmHG Vent. Rate : 094 BPM Atrial Rate : 094 BPM P-R Int : 184 ms QRS Dur : 110 ms QT Int : 398 ms P-R-T Axes : 090 -01 084 degrees QTc Int : 497 ms Sinus rhythm with Premature atrial complexes Incomplete left bundle branch block Marked ST abnormality, possible lateral subendocardial injury Prolonged QT Abnormal ECG Confirmed by RANDY GLASGOW, NGOZI ([id number]), editor publications [employer] ([id number]) on 03/24/2021 10:16:16 AM Referred By: Charline Dong Confirmed By:NGOZI PADILLA MD
[2021-03-20] MEDS: Metoclopramide 10 MG/2 ML Vial IV (12:36)
[2021-03-20] MEDS: Heparin Injection (Vial) 5,000 UNIT/ML VIAL 5000 UNIT IV (12:39)
[2021-03-20] MEDS: Nitroglycerin SL (ED/IMG/CATH) 0.4 MG TABLET SL (12:41)
--- NOTE | 2021-03-20 12:43 | EKG12_ITS ---
Test Reason : REPEAT CP Blood Pressure : / mmHG Vent. Rate : 109 BPM Atrial Rate : 109 BPM P-R Int : 198 ms QRS Dur : 124 ms QT Int : 354 ms P-R-T Axes : 000 -17 151 degrees QTc Int : 476 ms Sinus tachycardia Marked ST abnormality, possible inferolateral subendocardial injury Abnormal ECG Confirmed by RANDY GLASGOW, NGOZI ([id number]), material expeditor [employer] ([id number]) on 03/24/2021 10:19:32 AM Referred By: Charline Dong Confirmed By:NGOZI PADILLA MD
[2021-03-20] MEDS: Aspirin 81 MG TAB.CHEW 324 MG PO (12:49)
[2021-03-20] MEDS: Nitroglycerin (INPATIENT USE) 0.4 MG TAB.SUBL SL ×2 (12:59→13:04)
[2021-03-20] MEDS: HEPARIN/D5w 25,000 UNITS 25,000 UNITS/250 ML IV.SOLN. 11 UNITS IV (13:20)
--- NOTE | 2021-03-20 14:20 | EKG12_ITS ---
Test Reason : REPEAT Blood Pressure : / mmHG Vent. Rate : 101 BPM Atrial Rate : 101 BPM P-R Int : 170 ms QRS Dur : 114 ms QT Int : 392 ms P-R-T Axes : 071 -09 098 degrees QTc Int : 508 ms Sinus tachycardia Incomplete left bundle branch block ST Segment abnormality-possible subendocardial injury Abnormal ECG Confirmed by RANDY GLASGOW, NGOZI ([id number]), pictures editor [employer] ([id number]) on 03/24/2021 10:17:08 AM Referred By: Charline Dong Confirmed By:NGOZI PADILLA MD
[2021-03-20] MEDS: Nitroglycerin Infusion 250 ML 3 MG CONT INF (14:46)
[2021-03-20] MEDS: Morphine 2 MG/ML Syringe IV (15:00)
== END 2021-03-20 15:54 | disposition short-term general hospital (02) ==
PROVIDERS: Emergency Provider Emergency Medicine; PCP Family Medicine; Referring Provider Internal Medicine Interventional Cardiology
DX: I21.9 Acute myocardial infarction, unspecified (principal); R11.2 Nausea with vomiting, unspecified; I25.119 Atherosclerotic heart disease of native coronary artery with unspecified angina pectoris; I11.0 Hypertensive heart disease with heart failure; I50.9 Heart failure, unspecified; G89.29 Other chronic pain; I48.19 Other persistent atrial fibrillation; I34.1 Nonrheumatic mitral (valve) prolapse; D50.9 Iron deficiency anemia, unspecified; E03.2 Hypothyroidism due to medicaments and other exogenous substances; E78.5 Hyperlipidemia, unspecified; R06.02 Shortness of breath; K21.9 Gastro-esophageal reflux disease without esophagitis; Z79.82 Long term (current) use of aspirin; Z79.02 Long term (current) use of antithrombotics/antiplatelets; Z79.899 Other long term (current) drug therapy; I25.2 Old myocardial infarction; Z95.5 Presence of coronary angioplasty implant and graft
CPT/HCPCS: 71045; 74177; 80048; 80076; 83605; 83690; 84484; 85025; 85730; 87426; 93005; 96365; 96366; 96367; 96375; 99285; J7030; Q9967; A4216; J2405; J3490

== ENCOUNTER → 2021-06-16 12:42 | Outpatient (CLI) | payer MEDICARE, OTHER, SELFPAY ==
[2021-03-20 10:11] VITALS: BMI 26.3
[2021-06-16 15:40] LABS: CPK Total, Creatine Kinase 44 U/L (39-308); Troponin-I HS 22.6 pg/mL (3.0-78.5)
== END ==
PROVIDERS: PCP Family Medicine; Referring Provider Family Medicine; Visit Provider Family Medicine
DX: R11.0 Nausea (principal); M54.2 Cervicalgia
CPT/HCPCS: 36415; 82550; 84484

== ENCOUNTER → 2021-09-10 07:36 | Outpatient (CLI) | payer MEDICARE, OTHER, SELFPAY ==
--- NOTE | 2021-09-10 07:43 | AAVD_ITS ---
Reason For Study: Recheck Aneurysm Aorta Measurements Aorta Doppler Measurements Proximal aorta measures2.47cm x 2.52cm. in cross- Peak systolic flow velocities within the proximal sectional axis. aorta measure 70 cm/sec. Proximal aorta measures2.06cm. in longitudinal Peak systolic flow velocities within the mid aorta axis. measure 138 cm/sec. Mid aorta measures2.86cm x 3.01cm. in cross- Peak systolic flow velocities within the distal sectional axis. aorta measure 110 cm/sec. Mid aorta measures2.50cm. in longitudinal axis. Distal aorta measures4.74cm x 4.72cm. in cross- sectional axis. Distal aorta measures4.55cm. in longitudinal axis. Mural thrombus noted, distal Ao true lumen measures 2.16cm x 3.33cm. Left Iliac Artery Left iliac artery measures 1.28cm x 1.46 cm. in the cross-sectional axis. Left iliac artery measures 1.10 cm. in the longitudinal axis. Peak systolic velocity in the left iliac artery measures 116 cm/sec. Right Iliac Artery Right iliac artery measures 1.13cmx 1.25 cm. in the cross-sectional axis. Right iliac artery measures 1.10 cm. in the longitudinal axis. Peak systolic velocity in the right iliac artery measures 110 cm/sec. Procedure Aorta IVC Iliac vasculature or bypass grafts 12152. Difficult to visualize RCIA and LCIA. Exam performed in department. VL/Abd Aortic/IVC Duplex scan Interpretation Summary 4.74 x 4.72 cm distal abdominal aortic aneurysm. Mural thrombus noted. Flow velocity increased with in the mid and distal aorta. Suggest mild stenosis . Right common neck 1.13 x 1.25 cm in diameter Left common neck 1.28 x 1.46 cm in diameter Ordering Physician: Juancho Coleman Referring Physician: Juancho Coleman Performed By: Karen Armijo, KYRIECS, RVT
--- NOTE | 2021-09-10 08:33 | US_ITS ---
STUDY: RENAL ULTRASOUND - COMPLETE REASON FOR EXAM: Male, 81 years old. Recheck larger cyst TECHNIQUE: Ultrasound evaluation of the kidneys was performed with real-time and static guzman-scale imaging. COMPARISON: 07/25/2020, 03/20/2021 CT FINDINGS: RIGHT KIDNEY: Normal location of the right kidney, which is normal in size. The right kidney measures 10.5 x 5.6 x 5.5 cm. There is a normal cortex of the right kidney. The renal cortex measures 1.8 cm. 7.3 x 8.1 x 7.8 cm right renal cyst. There are no right renal calculi. There is no right hydronephrosis. DISTAL RIGHT URETER: There is non-visualization of the distal right ureter. There is no demonstrated right ureterovesical junction calculus. There is a visualized right ureteral jet. LEFT KIDNEY: Normal location of the left kidney, which is normal in size. The left kidney measures 10.8 x 4.7 x 5.7 cm. There is a normal cortex of the left kidney. The renal cortex measures 1.8 cm. 1.2 x 1.3 x 1.1 cm cyst. There are no left renal calculi. There is no left hydronephrosis. DISTAL LEFT URETER: There is non-visualization of the distal left ureter. There is no demonstrated left ureterovesical junction calculus. There is a visualized left ureteral jet. BLADDER: The distended urinary bladder has a volume of 239 ml. A few inferior urinary bladder folds are noted. There is a normal wall thickness of the distended urinary bladder. There is no demonstrated mass within the urinary bladder. There are no demonstrated bladder calculi. US/Kidney and Bladder IMPRESSION: No significant change in size of right renal cyst. No acute abnormal finding in the kidneys or urinary bladder. Electronically Signed: Seb Clark MD at 5:34 EDT Tel , Service support ,
== END ==
PROVIDERS: PCP Family Medicine; Referring Provider Family Medicine; Visit Provider Family Medicine
DX: I71.4 Abdominal aortic aneurysm, without rupture (principal)
CPT/HCPCS: 76770; 93978